=== PATIENT | male | born 1955 | race African-American/Black ===

== ENCOUNTER 2016-11-07 09:23 | Inpatient (IN) | payer OTHER ==
[2016-11-07 09:43] VITALS: BMI 24.9
--- NOTE | 2016-11-07 11:37 | HP ---
COWS - Scale Resting Pulse: 0= [place] 80 or Below Sweatin=Flushed/Facial Moisture Restless Observation: 3= Extraneous Movement Pupil Size: 2= Moderately Dilated Bone or Joint Aches: 2= Severe Diffuse Aches Runny Nose/ Eye Tearin= Runny Nose/Eyes GI Upset > 30mins: 3= Vomiting/Diarrhea Tremor Observation: 2= Slight Tremor Visible Yawning Observation: 2= >3x During Session Anxiety or Irritability: 2=Irritable/Anxious Goose Flesh Skin: 0=Smooth Skin COWS Score: 20 CIWA Score - CIWA Score Nausea/Vomitin Muscle Tremors: 3 Anxiety: 3 Agitation: 3 Paroxysmal Sweats: 2 Tacttile Disturbances: 2-Mild Itch/Numbness/Burn Auditory Disturbances: 2-Mild Harshness/Frighten Visual Disturbances: 2-Mild Sensitivity Headache: 2-Mild Admission ROS BHS - HPI Chief Complaint: I NEED HELP TO STOP USING DRUGS HEROIN,COCAINE AND ALCOHOL Allergies/Adverse Reactions: Allergies Allergy/AdvReac Type Severity Reaction Status Date / Time No Known Allergies Allergy Verified 11/07/16 10:09 History of Present Illness: THIS 61 YEARS OLD MALE WITH HEROIN,COCAINE AND ALCOHOL DEPENDENCE,WITHDRAWAL SYMPTOM,LAST DETOX 10/13 ACI NOT COMPLETED ASTHMA HEPATITIS C LOW BACK PAIN SPINAL STENOSIS LONGEST PERIOD OF SOBRIETY 17 YEARS Exam Limitations: No Limitations - Ebola screening Have you traveled outside of the country in the last 21 days: No Have you had contact with anyone from an Ebola affected area: No Have you been sick,other than usual withdrawal symptoms: No Do you have a fever: No - Review of Systems Constitutional: Chills, Diaphoresis, Loss of Appetite, Malaise, Night Sweats, Changes in sleep, Weakness EENT: reports: Tearing, Nose Congestion Respiratory: reports: No Symptoms reported Cardiac: reports: Palpitations GI: reports: Diarrhea, Nausea, Vomiting, Abdominal cramping : reports: No Symptoms Reported Musculoskeletal: reports: Back Pain, Joint Pain, Muscle Pain, Joint Stiffness Integumentary: reports: Dryness Neuro: reports: Headache, Tremors Endocrine: reports: No Symptoms Reported Hematology: reports: No Symptoms Reported Psychiatric: reports: Anxious (INSOMNIA), Depressed, other Patient History - Patient Medical History Hx Anemia: No Hx Asthma: Yes (ON ALBUTEROL INHALER) Hx Chronic Obstructive Pulmonary Disease (COPD): No Hx Cancer: No Hx Cardiac Disorders: No Hx Congestive Heart Failure: No Hx Hypertension: No Hx Hypercholesterolemia: No Hx Pacemaker: No HX Cerebrovascular Accident: No Hx Seizures: No Hx Dementia: No Hx Diabetes: No Hx Gastrointestinal Disorders: Yes (GERD) Hx Liver Disease: No Hx Genitourinary Disorders: No Hx Sexually Transmitted Disorders: No Hx Renal Disease (ESRD): No Hx Thyroid Disease: No Hx Human Immunodeficiency Virus (HIV): No (LAST 08/13 NEGATIVE) Hx Hepatitis C: No Hx Depression: Yes (ANXIETY,) Hx Suicide Attempt: No Hx Schizophrenia: No Other Medical History: INSOMNIA,LOW BACK PAIN - Patient Surgical History Past Surgical History: Yes Hx Neurologic Surgery: No Hx Cataract Extraction: No Hx Cardiac Surgery: No Hx Lung Surgery: No Hx Breast Surgery: No Hx Breast Biopsy: No Hx Abdominal Surgery: Yes Hx Appendectomy: No Hx Cholecystectomy: No Hx Genitourinary Surgery: No Hx Section: No Hx Orthopedic Surgery: No Other Surgical History: Incisional hernia repair in 2010 and chest sx in 2010 Anesthesia Reaction: No - PPD History Previous Implant?: Yes Documented Results: Negative w/proof Implanted On Prior [facility] Admission?: Yes Date: 02/09/16 Results: 0 mm PPD to be Administered?: No - Smoking Cessation Smoking history: Current every day smoker Have you smoked in the past 12 months: Yes Aproximately how many cigarettes per day: 20 Cigars Per Day: 0 Hx Chewing Tobacco Use: No Initiated information on smoking cessation: Yes 'Breaking Loose' booklet given: 11/07/16 - Substance & Tx. History Hx Alcohol Use: Yes Hx Substance Use: Yes Substance Use Type: Alcohol, Cocaine, Heroin - Substances Abused Heroin Route: Inhalation Frequency: Daily Amount used: 15 bags Age of first use: 31 Date of Last Use: 11/06/16 Alcohol Route: Oral Frequency: Daily Amount used: 3 pints wine Age of first use: 31 Date of Last Use: 11/06/16 Cocaine Route: Inhalation Frequency: Daily Amount used: 1 gram Age of first use: 31 Date of Last Use: 11/06/16 Family Disease History - Family Disease History Family History: Denies Admission Physical Exam BHS - Vital Signs Vital Signs: Vital Signs - 24 hr 11/07/16 09:39 Temperature 96.0 F L Pulse Rate 80 Respiratory 18 Rate Blood Pressure 112/73 - Physical General Appearance: Yes: Moderate Distress, Tremorous, Irritable, Sweating, Anxious HEENTM: Yes: Nasal Congestion Respiratory: Yes: Lungs Clear Neck: Yes: Within Normal Limits Breast: Yes: Within Normal Limits Cardiology: Yes: Within Normal Limits, Regular Rhythm, Regular Rate, S1, S2 Abdominal: Yes: Within Normal Limits, Normal Bowel Sounds, Non Tender, Flat, Soft, Surgical Scar Genitourinary: Yes: Within Normal Limits Back: Yes: Muscle Spasm Musculoskeletal: Yes: Back pain, Joint Stiffness, Muscle Pain Extremities: Yes: Tremors Neurological: Yes: experimental worker II-XII NML intact, Fully Oriented, Alert, Motor Strength 5/5 Integumentary: Yes: Dry Lymphatic: Yes: Within Normal Limits - Diagnostic (1) incisional hernia Current Visit: No Status: Active (2) Opioid dependence with withdrawal Current Visit: No Status: Acute (3) Asthma Current Visit: No Status: Chronic (4) Essential hypertension Current Visit: No Status: Chronic (5) Arteriosclerotic heart disease (ASHD) Current Visit: No Status: Suspected (6) Anxiety and depression Current Visit: Yes Status: Acute (7) Insomnia Current Visit: Yes Status: Acute (8) GERD (gastroesophageal reflux disease) Current Visit: Yes Status: Acute (9) Low back pain Current Visit: Yes Status: Acute Cleared for Admission [facility] - Detox or Rehab [facility] Level of Care: Medically Managed Detox Regimen/Protocol: Methadone/Librium [facility] Breath Alcohol Content Breath Alcohol Content: 0 Urine Drug Screen - Results Drug Screen Negative: No Urine Drug Screen Results: TYRON-Cocaine, OPI-Opiates, OXY-Oxycodone
[2016-11-07] MEDS ORDERED: NICOTINE POLACRILEX 2 MG GUM BUC PRN (11:50)
[2016-11-07] MEDS ORDERED: MAGNESIUM HYDROX 2400MG/30ML ORAL SUSPENSION 30 ML CUP PO PRN (11:50)
[2016-11-07] MEDS ORDERED: P-EPHED 60MG/TRIPROLIDI 2.5MG TABLET PO PRN (11:50)
[2016-11-07] MEDS ORDERED: IBUPROFEN 400 MG TABLET (FP) PO PRN (11:50)
[2016-11-07] MEDS ORDERED: guaiFENesin/D-METHORPHAN HB 10 ML UNIT-DOSE CUPS PO PRN (11:50)
[2016-11-07] MEDS ORDERED: MENTHOL/PHENOL 1 EACH UD MM PRN (11:50)
[2016-11-07] MEDS ORDERED: LOPERAMIDE HCL 2 MG CAPSULE PO PRN (11:50)
[2016-11-07] MEDS ORDERED: MAG HYDROX/AL HYDROX/SIMETH 30 ML UNIT-DOSE CUP PO PRN (11:50)
[2016-11-07] MEDS ORDERED: ACETAMINOPHEN 325 MG TABLET (FP) PO PRN (11:50)
[2016-11-07] MEDS ORDERED: hydrOXYzine PAMOATE 50 MG CAPSULE (FP) PO PRN (11:50)
[2016-11-07] MEDS ORDERED: MAGNESIUM CITRATE 300 ML BOTTLE PO PRN (11:50)
[2016-11-07] MEDS ORDERED: chlordiazePOXIDE HCL 25 MG CAPSULE PO PRN (11:50)
[2016-11-07] MEDS ORDERED: ALBUTEROL SO4 6.7 GM HFA INHALER IH PRN (11:56)
[2016-11-07] MEDS ORDERED: chlordiazePOXIDE HCL 25 MG CAPSULE PO ONE (12:05)
[2016-11-07] MEDS ORDERED: METHADONE HCL 10 MG TABLET (FOR DETOX USE ONLY) PO ONE ×2 (12:06→23:00)
[2016-11-07] MEDS: NICOTINE 21 MG/24 HOURS TOPICAL PATCH TD SCH (12:44)
[2016-11-07] MEDS: GABAPENTIN 300 MG CAPSULE (FP) PO SCH ×2 (13:17→22:18)
--- NOTE | 2016-11-07 16:20 | CONSULT ---
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 Substance Abuse History: - Smoking Cessation. Smoking history: Current every day smoker. Have you smoked in the past 12 months: Yes. Aproximately how many cigarettes per day: 20. Cigars Per Day: 0. Hx Chewing Tobacco Use: No. Initiated information on smoking cessation: Yes. 'Breaking Loose' booklet given : 11/07/16. - Substance & Tx. History. Hx Alcohol Use: Yes. Hx Substance Use : Yes. Substance Use Type: Alcohol, Cocaine, Heroin. - Substances Abused. Heroin. Route: Inhalation. Frequency: Daily. Amount used: 15 bags. Age of first use: 31. Date of Last Use: 11/06/16. Alcohol. Route: Oral. Frequency: Daily. Amount used: 3 pints wine. Age of first use: 31. Date of Last Use: 11/06/16. Cocaine. Route: Inhalation. Frequency: Daily. Amount used: 1 gram. Age of first use: 31. Date of Last Use: 11/06/16. Confirmed by patient. Medical History: Significant for a history of bronchial asthma,HTN,GERD,low back pain,past incisional herniorrhaphy and spinal stenosis. Psychiatric History: Reportedly dagnosed with Bipolar Disorder years.Patient denies history of psychiatric hospitalizations." I used to be on psychiatric medications.Not anymore." Mr Gay states that he stopped seing OPD care providers/taking psychotropic medications (trazodone seroquel) years ago.No history of suicide attempts. Physical/Sexual Abuse/Trauma History: Patient denies. Mental Status Exam - Mental Status Exam Alert and Oriented to: Time, Place, Person Cognitive Function: Good Patient Appearance: Well Groomed Mood: Withdrawn, Anxious Affect: Mood Congruent Patient Behavior: Fatigued, Talkative, Appropriate, Cooperative Speech Pattern: Clear Voice Loudness: Normal Thought Process: Goal Oriented Thought Disorder: Not Present Hallucinations: Denies Suicidal Ideation: Denies Homicidal Ideation: Denies Insight/Judgement: Poor Sleep: Fair Appetite: Good Muscle strength/Tone: Normal Gait/Station: Normal Psychiatric Findings - Problem List ([place] 1, 2,3) (1) Opioid dependence with withdrawal Current Visit: Yes Status: Acute (2) Nicotine dependence Current Visit: Yes Status: Acute Qualifiers: Nicotine product type: cigarettes Substance use status: uncomplicated Qualified Code(s): F17.210 - Nicotine dependence, cigarettes, uncomplicated (3) Cocaine dependence Current Visit: Yes Status: Acute (4) GERD (gastroesophageal reflux disease) Current Visit: Yes Status: Chronic (5) Low back pain Current Visit: Yes Status: Chronic (6) Asthma Current Visit: Yes Status: Chronic (7) Essential hypertension Current Visit: No Status: Chronic (8) Arteriosclerotic heart disease (ASHD) Current Visit: No Status: Suspected - Initial Treatment Plan Initial Treatment Plan: Psychoeducation.Detoxification.Observation.
[2016-11-07] MEDS: chlordiazePOXIDE HCL 25 MG CAPSULE PO SCH ×2 (17:43→22:17)
[2016-11-07 19:23] LABS: URINE APPEARANCE CLEAR; URINE BILIRUBIN NEGATIVE (NEGATIVE); URINE BLOOD TRACE-INTA (NEGATIVE); URINE COLOR LT. YELLOW; URINE GLUCOSE (UA) NEGATIVE (NEGATIVE); URINE KETONE TRACE (NEGATIVE); URINE LEUK ESTERASE NEGATIVE (NEGATIVE); URINE NITRITE NEGATIVE (NEGATIVE); URINE PROTEIN NEGATIVE (NEGATIVE); URINE UROBILINOGEN 0.2 E.U/dl E.U./dl (0.2-1.0)
[2016-11-07] MEDS: THIAMINE HCL 100 MG TABLET (FP) PO SCH (22:17)
[2016-11-07] MEDS: NAPROXEN 500 MG TABLET (FP) PO SCH (22:18)
[2016-11-08] MEDS: GABAPENTIN 300 MG CAPSULE (FP) PO SCH ×3 (05:33→22:40)
[2016-11-08] MEDS: chlordiazePOXIDE HCL 25 MG CAPSULE PO SCH ×4 (05:33→22:41)
--- NOTE | 2016-11-08 09:30 | PN ---
BHS COWS - Scale Resting Pulse: 0= [place] 80 or Below Sweatin= Chills/Flushing Restless Observation: 3= Extraneous Movement Pupil Size: 1= Pupils >than Normal Bone or Joint Aches: 2= Severe Diffuse Aches Runny Nose/ Eye Tearin= Runny Nose/Eyes GI Upset > 30mins: 3= Vomiting/Diarrhea Tremor Observation of Outstretched Hands: 2= Slight Tremor Visible Yawning Observation: 1= 1-2x During Session Anxiety or Irritability: 2=Irritable/Anxious Goose Flesh Skin: 0=Smooth Skin COWS Score: 17 S Progress Note (SOAP) Subjective: ALERT,IRRITABLE,ANXIOUS,INTERRUPTED SLEEP,PAIN IN THE BODY AND BACK,TREMOR Objective: 11/08/16 09:29 Vital Signs Temperature 97.4 F L 11/08/16 06:29 Pulse Rate 68 11/08/16 06:29 Respiratory Rate 18 11/08/16 06:29 Blood Pressure 111/74 11/08/16 06:29 O2 Sat by Pulse Oximetry (%) EKG NSR,ST IN V2 NO CHEST PAIN,NO SOB,NO DIZZINESS Assessment: 11/08/16 09:30 WITHDRAWAL SYMPTOM Plan: CONTINUE DETOX
--- NOTE | 2016-11-08 09:50 | EKG ---
Test Reason : Blood Pressure : / mmHG Vent. Rate : 062 BPM Atrial Rate : 062 BPM P-R Int : 174 ms QRS Dur : 110 ms QT Int : 434 ms P-R-T Axes : 072 -32 -15 degrees QTc Int : 440 ms NORMAL SINUS RHYTHM LEFT AXIS DEVIATION SEPTAL INFARCT , AGE UNDETERMINED ABNORMAL ECG NO PREVIOUS ECGS AVAILABLE Confirmed by MARGAUX KABA, SHARON ([id number]) on 11/08/2016 9:49:50 AM Referred By: Vasquez Kumar Confirmed By:SHARON DAMICO MD
[2016-11-08 10:00] LABS: MCH 30.5 pg (25.7-33.7); MEAN CELL VOLUME 92.4 fl (80-96); MEAN PLT VOLUME 9.6 fl (7.5-11.1); PLATELET COUNT 472 K/MM3 (134-434); RDW 13.2 % (11.9-15.9); WHITE BLOOD COUNT 6.6 K/mm3 (4.0-10.0)
[2016-11-08] MEDS ORDERED: METHADONE HCL 10 MG TABLET (FOR DETOX USE ONLY) PO SCH (10:00)
[2016-11-08 10:11] LABS: ALBUMIN 3.7 g/dl (3.4-5.0); BILIRUBIN,TOTAL 1.2 mg/dL (0.2-1.0); CALCIUM 9.1 mg/dL (8.5-10.1); CREATININE 1.5 mg/dL (0.7-1.3); TOT PROT 7.8 g/dl (6.4-8.2)
[2016-11-08] MEDS: NAPROXEN 500 MG TABLET (FP) PO SCH ×2 (10:17→22:40)
[2016-11-08] MEDS: NICOTINE 21 MG/24 HOURS TOPICAL PATCH TD SCH (10:17)
[2016-11-08] MEDS: PRENATAL VITAMINS W/ FOLIC ACID TABLET (FP) PO SCH (10:17)
[2016-11-08] MEDS: ASPIRIN 81 MG CHEWABLE TABLETS PO SCH (10:17)
[2016-11-08] MEDS: THIAMINE HCL 100 MG TABLET (FP) PO SCH (22:40)
[2016-11-09] MEDS: GABAPENTIN 300 MG CAPSULE (FP) PO SCH ×3 (05:56→22:28)
[2016-11-09] MEDS: chlordiazePOXIDE HCL 25 MG CAPSULE PO SCH ×2 (05:56→10:33)
[2016-11-09] MEDS ORDERED: CYCLOBENZAPRINE HCL 10 MG TABLET (FP) PO PRN (09:07)
--- NOTE | 2016-11-09 09:58 | PN ---
S COWS - Scale Resting Pulse: 0= [place] 80 or Below Sweatin=Flushed/Facial Moisture Restless Observation: 3= Extraneous Movement Pupil Size: 1= Pupils >than Normal Bone or Joint Aches: 2= Severe Diffuse Aches Runny Nose/ Eye Tearin= Runny Nose/Eyes GI Upset > 30mins: 2= Nausea/Diarrhea Tremor Observation of Outstretched Hands: 2= Slight Tremor Visible Yawning Observation: 1= 1-2x During Session Anxiety or Irritability: 2=Irritable/Anxious Goose Flesh Skin: 0=Smooth Skin COWS Score: 17 BHS Progress Note (SOAP) Subjective: ALERT,IRRITABLE,ANXIOUS,INTERRUPTED SLEEP,TREMOR,PAIN IN THE BODY AND BACK Objective: 11/09/16 09:56 Vital Signs Temperature 97.1 F L 11/09/16 06:41 Pulse Rate 80 11/09/16 06:41 Respiratory Rate 18 11/09/16 06:41 Blood Pressure 118/81 11/09/16 06:41 O2 Sat by Pulse Oximetry (%) Laboratory Last Values WBC 6.6 K/mm3 (4.0-10.0) 11/08/16 06:00 RBC 4.63 M/mm3 (4.00-5.60) 11/08/16 06:00 Hgb 14.1 GM/dL (11.7-16.9) 11/08/16 06:00 Hct 42.8 % (35.4-49) 11/08/16 06:00 MCV 92.4 fl (80-96) 11/08/16 06:00 MCHC 33.0 g/dl (32.0-35.9) 11/08/16 06:00 RDW 13.2 % (11.9-15.9) 11/08/16 06:00 Plt Count 472 K/MM3 (134-434) H D 11/08/16 06:00 MPV 9.6 fl (7.5-11.1) 11/08/16 06:00 Sodium 139 mmol/L (136-145) 11/08/16 06:00 Potassium 3.8 mmol/L (3.5-5.1) 11/08/16 06:00 Chloride 103 mmol/L (98-107) 11/08/16 06:00 Carbon Dioxide 31 mmol/L (21-32) 11/08/16 06:00 Anion Gap 5 (8-16) L 11/08/16 06:00 BUN 15 mg/dL (7-18) D 11/08/16 06:00 Creatinine 1.5 mg/dL (0.7-1.3) H D 11/08/16 06:00 Creat Clearance w eGFR 47.74 (>60) 11/08/16 06:00 Random Glucose 134 mg/dL (74-106) H D 11/08/16 06:00 Calcium 9.1 mg/dL (8.5-10.1) 11/08/16 06:00 Total Bilirubin 1.2 mg/dL (0.2-1.0) H D 11/08/16 06:00 AST 17 U/L (15-37) D 11/08/16 06:00 ALT 35 U/L (12-78) D 11/08/16 06:00 Alkaline Phosphatase 84 U/L (45-117) 11/08/16 06:00 Total Protein 7.8 g/dl (6.4-8.2) 11/08/16 06:00 Albumin 3.7 g/dl (3.4-5.0) 11/08/16 06:00 Urine Color Lt. yellow 11/07/16 14:00 Urine Appearance Clear 11/07/16 14:00 Urine pH 6.0 (5.0-8.0) 11/07/16 14:00 Ur Specific [place] 1.010 (1.001-1.035) 11/07/16 14:00 Urine Protein Negative (NEGATIVE) 11/07/16 14:00 Urine Glucose (UA) Negative (NEGATIVE) 11/07/16 14:00 Urine Ketones Trace (NEGATIVE) H 11/07/16 14:00 Urine Blood Trace-inta (NEGATIVE) 11/07/16 14:00 Urine Nitrite Negative (NEGATIVE) 11/07/16 14:00 Urine Bilirubin Negative (NEGATIVE) 11/07/16 14:00 Urine Urobilinogen 0.2 e.u/dl E.U./dl (0.2-1.0) 11/07/16 14:00 Ur Leukocyte Esterase Negative (NEGATIVE) 11/07/16 14:00 RPR Titer Nonreactive (NONREACTIVE) 11/08/16 06:00 Assessment: 01/12/17 09:57 WITHDRAWAL SYMPTOM Plan: CONTINUE DETOX,ENCOURAGE ORAL FLUID,REPEAT CMP IN AM,BGM MONITORING,INITIAL GLUCOE IS 134
[2016-11-09] MEDS: ASPIRIN 81 MG CHEWABLE TABLETS PO SCH (10:33)
[2016-11-09] MEDS: METHADONE HCL 5 MG TABLET (FOR DETOX USE ONLY) PO SCH (10:33)
[2016-11-09] MEDS: PRENATAL VITAMINS W/ FOLIC ACID TABLET (FP) PO SCH (10:33)
[2016-11-09] MEDS: NAPROXEN 500 MG TABLET (FP) PO SCH ×2 (10:34→22:28)
[2016-11-09] MEDS: cloNIDine HCL 0.1 MG TABLET PO SCH ×2 (10:34→22:28)
[2016-11-09] MEDS: NICOTINE 21 MG/24 HOURS TOPICAL PATCH TD SCH (10:34)
[2016-11-09] MEDS: chlordiazePOXIDE 5 MG CAPSULE PO SCH ×2 (17:20→22:28)
--- NOTE | 2016-11-09 17:39 | PN ---
BHS Progress Note Note: received nurse call acid reflux zantac 150 mg bid continue detox
[2016-11-09] MEDS ORDERED: RANITIDINE HCL 150 MG TABLET (FP) PO ONE (19:02)
[2016-11-09] MEDS ORDERED: RANITIDINE HCL 150 MG TABLET (FP) PO SCH (22:00)
[2016-11-09] MEDS: THIAMINE HCL 100 MG TABLET (FP) PO SCH (22:28)
[2016-11-09] MEDS: diphenhydrAMINE HCL 50 MG CAPSULE PO PRN (22:30)
[2016-11-10] MEDS: chlordiazePOXIDE 5 MG CAPSULE PO SCH ×2 (05:52→10:11)
[2016-11-10] MEDS: GABAPENTIN 300 MG CAPSULE (FP) PO SCH ×3 (05:53→22:23)
[2016-11-10] MEDS: cloNIDine HCL 0.1 MG TABLET PO SCH ×2 (10:11→22:23)
[2016-11-10] MEDS: RANITIDINE HCL 150 MG TABLET (FP) PO SCH ×2 (10:11→22:23)
[2016-11-10] MEDS: NICOTINE 21 MG/24 HOURS TOPICAL PATCH TD SCH (10:11)
[2016-11-10] MEDS: ASPIRIN 81 MG CHEWABLE TABLETS PO SCH (10:11)
[2016-11-10] MEDS: NAPROXEN 500 MG TABLET (FP) PO SCH ×2 (10:11→22:23)
[2016-11-10] MEDS: METHADONE HCL 5 MG TABLET (FOR DETOX USE ONLY) PO SCH (10:12)
[2016-11-10] MEDS: PRENATAL VITAMINS W/ FOLIC ACID TABLET (FP) PO SCH (10:12)
[2016-11-10 10:56] LABS: ALBUMIN 3.3 g/dl (3.4-5.0); ALK PHOS 68 U/L (45-117); ANION GAP 8 (8-16); BILIRUBIN,TOTAL 0.5 mg/dL (0.2-1.0); CALCIUM 8.4 mg/dL (8.5-10.1); CO2 27 mmol/L (21-32); CREATININE 0.9 mg/dL (0.7-1.3); GLUCOSE,RANDOM 112 mg/dL (74-106); SGOT/AST 17 U/L (15-37); SGPT/ALT 35 U/L (12-78); TOT PROT 6.3 g/dl (6.4-8.2)
--- NOTE | 2016-11-10 12:16 | PN ---
BHS Progress Note (SOAP) Subjective: SWEATING,INTERRUPTED SLEEP,RESTLESS Objective: 11/10/16 12:15 Vital Signs - 8 hr 11/10/16 11/10/16 06:27 09:35 Temperature 97.6 F 96 F L Pulse Rate 70 76 Respiratory 18 20 Rate Blood Pressure 99/66 104/73 Laboratory Tests 11/07/16 11/08/16 11/08/16 14:00 06:00 06:00 WBC 6.6 RBC 4.63 Hgb 14.1 Hct 42.8 MCV 92.4 MCHC 33.0 RDW 13.2 Plt Count 472 H D MPV 9.6 Sodium 139 Potassium 3.8 Chloride 103 Carbon Dioxide 31 Anion Gap 5 L BUN 15 D Creatinine 1.5 H D Creat Clearance w eGFR 47.74 POC Glucometer Random Glucose 134 H D Calcium 9.1 Total Bilirubin 1.2 H D AST 17 D ALT 35 D Alkaline Phosphatase 84 Total Protein 7.8 Albumin 3.7 Urine Color Lt. yellow Urine Appearance Clear Urine pH 6.0 Ur Specific [place] 1.010 Urine Protein Negative Urine Glucose (UA) Negative Urine Ketones Trace H Urine Blood Trace-inta Urine Nitrite Negative Urine Bilirubin Negative Urine Urobilinogen 0.2 e.u/dl Ur Leukocyte Esterase Negative RPR Titer 11/08/16 11/09/16 11/10/16 06:00 16:24 05:56 WBC RBC Hgb Hct MCV MCHC RDW Plt Count MPV Sodium Potassium Chloride Carbon Dioxide Anion Gap BUN Creatinine Creat Clearance w eGFR POC Glucometer 103 159 Random Glucose Calcium Total Bilirubin AST ALT Alkaline Phosphatase Total Protein Albumin Urine Color Urine Appearance Urine pH Ur Specific [place] Urine Protein Urine Glucose (UA) Urine Ketones Urine Blood Urine Nitrite Urine Bilirubin Urine Urobilinogen Ur Leukocyte Esterase RPR Titer Nonreactive 11/10/16 07:00 WBC RBC Hgb Hct MCV MCHC RDW Plt Count MPV Sodium 143 Potassium 4.2 Chloride 108 H Carbon Dioxide 27 Anion Gap 8 BUN 8 D Creatinine 0.9 D Creat Clearance w eGFR > 60 POC Glucometer Random Glucose 112 H Calcium 8.4 L Total Bilirubin 0.5 D AST 17 ALT 35 Alkaline Phosphatase 68 Total Protein 6.3 L Albumin 3.3 L Urine Color Urine Appearance Urine pH Ur Specific [place] Urine Protein Urine Glucose (UA) Urine Ketones Urine Blood Urine Nitrite Urine Bilirubin Urine Urobilinogen Ur Leukocyte Esterase RPR Titer LABS NOTED Assessment: 11/10/16 12:16 WITHDRAWAL SX. Plan: CONTINUE DETOX
[2016-11-10] MEDS: chlordiazePOXIDE HCL 10 MG CAPSULE PO SCH ×2 (17:20→22:23)
[2016-11-10] MEDS: THIAMINE HCL 100 MG TABLET (FP) PO SCH (22:23)
[2016-11-10] MEDS: diphenhydrAMINE HCL 50 MG CAPSULE PO PRN (22:24)
[2016-11-11] MEDS: chlordiazePOXIDE HCL 10 MG CAPSULE PO SCH ×2 (05:35→10:04)
[2016-11-11] MEDS: GABAPENTIN 300 MG CAPSULE (FP) PO SCH ×3 (06:26→22:03)
[2016-11-11] MEDS ORDERED: METHADONE HCL 10 MG TABLET (FOR DETOX USE ONLY) PO SCH (10:00)
[2016-11-11] MEDS: PRENATAL VITAMINS W/ FOLIC ACID TABLET (FP) PO SCH (10:04)
[2016-11-11] MEDS: NAPROXEN 500 MG TABLET (FP) PO SCH ×2 (10:04→22:03)
[2016-11-11] MEDS: cloNIDine HCL 0.1 MG TABLET PO SCH ×2 (10:04→22:03)
[2016-11-11] MEDS: ASPIRIN 81 MG CHEWABLE TABLETS PO SCH (10:04)
[2016-11-11] MEDS: RANITIDINE HCL 150 MG TABLET (FP) PO SCH ×2 (10:04→22:04)
[2016-11-11] MEDS: NICOTINE 21 MG/24 HOURS TOPICAL PATCH TD SCH (10:04)
--- NOTE | 2016-11-11 10:20 | PN ---
BHS Progress Note (SOAP) Subjective: poor sleep restless, anxious, shaky Objective: 11/11/16 10:19 Vital Signs - 24 hr 11/10/16 11/10/16 11/10/16 13:10 17:30 22:05 Temperature 95.9 F L 97.2 F L 98.3 F Pulse Rate 74 65 68 Respiratory 18 16 19 Rate Blood Pressure 102/65 99/58 94/65 11/11/16 11/11/16 06:27 09:23 Temperature 98.1 F Pulse Rate 65 71 Respiratory 18 18 Rate Blood Pressure 103/66 96/66 Laboratory Tests 11/07/16 11/08/16 11/08/16 14:00 06:00 06:00 WBC 6.6 RBC 4.63 Hgb 14.1 Hct 42.8 MCV 92.4 MCHC 33.0 RDW 13.2 Plt Count 472 H D MPV 9.6 Sodium 139 Potassium 3.8 Chloride 103 Carbon Dioxide 31 Anion Gap 5 L BUN 15 D Creatinine 1.5 H D Creat Clearance w eGFR 47.74 POC Glucometer Random Glucose 134 H D Calcium 9.1 Total Bilirubin 1.2 H D AST 17 D ALT 35 D Alkaline Phosphatase 84 Total Protein 7.8 Albumin 3.7 Urine Color Lt. yellow Urine Appearance Clear Urine pH 6.0 Ur Specific [place] 1.010 Urine Protein Negative Urine Glucose (UA) Negative Urine Ketones Trace H Urine Blood Trace-inta Urine Nitrite Negative Urine Bilirubin Negative Urine Urobilinogen 0.2 e.u/dl Ur Leukocyte Esterase Negative RPR Titer 11/08/16 11/09/16 11/10/16 06:00 16:24 05:56 WBC RBC Hgb Hct MCV MCHC RDW Plt Count MPV Sodium Potassium Chloride Carbon Dioxide Anion Gap BUN Creatinine Creat Clearance w eGFR POC Glucometer 103 159 Random Glucose Calcium Total Bilirubin AST ALT Alkaline Phosphatase Total Protein Albumin Urine Color Urine Appearance Urine pH Ur Specific [place] Urine Protein Urine Glucose (UA) Urine Ketones Urine Blood Urine Nitrite Urine Bilirubin Urine Urobilinogen Ur Leukocyte Esterase RPR Titer Nonreactive 11/10/16 11/10/16 11/11/16 07:00 16:21 05:35 WBC RBC Hgb Hct MCV MCHC RDW Plt Count MPV Sodium 143 Potassium 4.2 Chloride 108 H Carbon Dioxide 27 Anion Gap 8 BUN 8 D Creatinine 0.9 D Creat Clearance w eGFR > 60 POC Glucometer 109 101 Random Glucose 112 H Calcium 8.4 L Total Bilirubin 0.5 D AST 17 ALT 35 Alkaline Phosphatase 68 Total Protein 6.3 L Albumin 3.3 L Urine Color Urine Appearance Urine pH Ur Specific [place] Urine Protein Urine Glucose (UA) Urine Ketones Urine Blood Urine Nitrite Urine Bilirubin Urine Urobilinogen Ur Leukocyte Esterase RPR Titer Assessment: 11/11/16 10:19 ongoing withdrawal Plan: continue detox protocol with observation and dc in am
[2016-11-11] MEDS: THIAMINE HCL 100 MG TABLET (FP) PO SCH (22:03)
[2016-11-11] MEDS: diphenhydrAMINE HCL 50 MG CAPSULE PO PRN (22:04)
[2016-11-12] MEDS: GABAPENTIN 300 MG CAPSULE (FP) PO SCH (05:28)
[2016-11-12] MEDS ORDERED: METHADONE HCL 5 MG TABLET (FOR DETOX USE ONLY) PO SCH (06:00)
[2016-11-12 09:37] VITALS: BP 106/74; PULSE 83; TEMP 98.3
[2016-11-12] MEDS: PRENATAL VITAMINS W/ FOLIC ACID TABLET (FP) PO SCH (09:40)
[2016-11-12] MEDS: cloNIDine HCL 0.1 MG TABLET PO SCH (09:41)
[2016-11-12] MEDS: ASPIRIN 81 MG CHEWABLE TABLETS PO SCH (09:41)
[2016-11-12] MEDS: RANITIDINE HCL 150 MG TABLET (FP) PO SCH (09:41)
[2016-11-12] MEDS: NAPROXEN 500 MG TABLET (FP) PO SCH (09:41)
[2016-11-12] MEDS: NICOTINE 21 MG/24 HOURS TOPICAL PATCH TD SCH (09:42)
--- NOTE | 2016-11-12 12:08 | DS ---
[facility] Detox Discharge Summary Admission Date: 11/07/16 Discharge Date: 11/12/16 - History Present History: Alcohol Dependence, Cocaine Dependence, Opioid Dependence Pertinent Past History: Asthma GERD - Physical Exam Results Vital Signs: Vital Signs Temperature 98.3 F 11/12/16 09:36 Pulse Rate 83 11/12/16 09:36 Respiratory Rate 18 11/12/16 09:36 Blood Pressure 106/74 11/12/16 09:36 O2 Sat by Pulse Oximetry (%) Pertinent Admission Physical Exam Findings: Withdrawal symptoms Laboratory Tests 11/07/16 11/08/16 11/08/16 14:00 06:00 06:00 WBC 6.6 RBC 4.63 Hgb 14.1 Hct 42.8 MCV 92.4 MCHC 33.0 RDW 13.2 Plt Count 472 H D MPV 9.6 Sodium 139 Potassium 3.8 Chloride 103 Carbon Dioxide 31 Anion Gap 5 L BUN 15 D Creatinine 1.5 H D Creat Clearance w eGFR 47.74 POC Glucometer Random Glucose 134 H D Calcium 9.1 Total Bilirubin 1.2 H D AST 17 D ALT 35 D Alkaline Phosphatase 84 Total Protein 7.8 Albumin 3.7 Urine Color Lt. yellow Urine Appearance Clear Urine pH 6.0 Ur Specific [place] 1.010 Urine Protein Negative Urine Glucose (UA) Negative Urine Ketones Trace H Urine Blood Trace-inta Urine Nitrite Negative Urine Bilirubin Negative Urine Urobilinogen 0.2 e.u/dl Ur Leukocyte Esterase Negative RPR Titer 11/08/16 11/09/16 11/10/16 06:00 16:24 05:56 WBC RBC Hgb Hct MCV MCHC RDW Plt Count MPV Sodium Potassium Chloride Carbon Dioxide Anion Gap BUN Creatinine Creat Clearance w eGFR POC Glucometer 103 159 Random Glucose Calcium Total Bilirubin AST ALT Alkaline Phosphatase Total Protein Albumin Urine Color Urine Appearance Urine pH Ur Specific [place] Urine Protein Urine Glucose (UA) Urine Ketones Urine Blood Urine Nitrite Urine Bilirubin Urine Urobilinogen Ur Leukocyte Esterase RPR Titer Nonreactive 11/10/16 11/10/16 11/11/16 07:00 16:21 05:35 WBC RBC Hgb Hct MCV MCHC RDW Plt Count MPV Sodium 143 Potassium 4.2 Chloride 108 H Carbon Dioxide 27 Anion Gap 8 BUN 8 D Creatinine 0.9 D Creat Clearance w eGFR > 60 POC Glucometer 109 101 Random Glucose 112 H Calcium 8.4 L Total Bilirubin 0.5 D AST 17 ALT 35 Alkaline Phosphatase 68 Total Protein 6.3 L Albumin 3.3 L Urine Color Urine Appearance Urine pH Ur Specific [place] Urine Protein Urine Glucose (UA) Urine Ketones Urine Blood Urine Nitrite Urine Bilirubin Urine Urobilinogen Ur Leukocyte Esterase RPR Titer 11/11/16 11/12/16 16:15 05:27 WBC RBC Hgb Hct MCV MCHC RDW Plt Count MPV Sodium Potassium Chloride Carbon Dioxide Anion Gap BUN Creatinine Creat Clearance w eGFR POC Glucometer 114 98 Random Glucose Calcium Total Bilirubin AST ALT Alkaline Phosphatase Total Protein Albumin Urine Color Urine Appearance Urine pH Ur Specific [place] Urine Protein Urine Glucose (UA) Urine Ketones Urine Blood Urine Nitrite Urine Bilirubin Urine Urobilinogen Ur Leukocyte Esterase RPR Titer Labs noted - Treatment Hospital Course: Detox Protocol Followed, Detoxed Safely, Responded well, Discharged Condition Good - Medication Discharge Medications: Ambulatory Orders Albuterol Sulfate Inhaler - [Ventolin HFA Inhaler -] 2 inh IH Q4H PRN #0 inh 12/10 Aspirin [ASA -] 81 mg PO DAILY 11/07/16 Gabapentin [Neurontin -] 300 mg PO Q8H 11/07/16 Naproxen [Naprosyn -] 500 mg PO BID 11/07/16 - Diagnosis (1) Opioid dependence with withdrawal Status: Acute (2) Asthma Status: Chronic (3) GERD (gastroesophageal reflux disease) Status: Chronic (4) Alcohol dependence with withdrawal, unspecified Status: Acute - AMA Did Patient Leave Against Medical Advice: No
== END 2016-11-12 10:00 | disposition home or self-care (01) | DRG 773 ==
LOC: YASAS 09:23 → Y3N 11:13
PROVIDERS: ADMIT Internal Medicine; ATTEND Internal Medicine
PROC: HZ2ZZZZ Detoxification Services for Substance Abuse Treatment (ICD-10-PCS; principal; 2016-11-07)
DX: F11.23 Opioid dependence with withdrawal (principal); F10.230 Alcohol dependence with withdrawal, uncomplicated; F14.20 Cocaine dependence, uncomplicated; F17.210 Nicotine dependence, cigarettes, uncomplicated; F41.8 Other specified anxiety disorders; J45.909 Unspecified asthma, uncomplicated; K21.9 Gastro-esophageal reflux disease without esophagitis; M54.5 Low back pain; I10 Essential (primary) hypertension; I25.10 Atherosclerotic heart disease of native coronary artery without angina pectoris; M48.00 Spinal stenosis, site unspecified; G47.00 Insomnia, unspecified
CPT/HCPCS: 36415; 80053; 81003; 85027; 86593; 93005; 93010

== ENCOUNTER 2017-01-10 11:50 | Inpatient (IN) | payer OTHER ==
[2017-01-10 13:32] VITALS: BMI 25.8
--- NOTE | 2017-01-10 15:17 | HP ---
COWS - Scale Resting Pulse: 0= [place] 80 or Below Sweatin=Flushed/Facial Moisture Restless Observation: 1= Difficult to Sit Still Pupil Size: 0= Normal to Room Light Bone or Joint Aches: 2= Severe Diffuse Aches Runny Nose/ Eye Tearin= Runny Nose/Eyes GI Upset > 30mins: 2= Nausea/Diarrhea Tremor Observation: 2= Slight Tremor Visible Yawning Observation: 2= >3x During Session Anxiety or Irritability: 2=Irritable/Anxious Goose Flesh Skin: 3=Piloerection COWS Score: 18 CIWA Score - CIWA Score Nausea/Vomitin-Mild Nausea/No Vomiting Muscle Tremors: 3 Anxiety: 4-Mod. Anxious/Guarded Agitation: 4-Moderately Restless Paroxysmal Sweats: 3 Orientation: 0-Oriented Tacttile Disturbances: 0-None Auditory Disturbances: 0-None Visual Disturbances: 0-None Headache: 1-Very Mild CIWA-Ar Total Score: 16 Admission ROS BHS - HPI Chief Complaint: I need to stop. Allergies/Adverse Reactions: Allergies Allergy/AdvReac Type Severity Reaction Status Date / Time DUCK SAUCE Allergy Severe Hives Uncoded 01/10/17 15:02 NKDA Allergy Uncoded 01/10/17 15:02 History of Present Illness: pt is a 61yr old male with a history of alcohol and opioid dependence seeking detox for treatment. Exam Limitations: No Limitations - Ebola screening Have you traveled outside of the country in the last 21 days: No Have you had contact with anyone from an Ebola affected area: No Have you been sick,other than usual withdrawal symptoms: No Do you have a fever: No - Review of Systems Constitutional: Chills, Diaphoresis, Loss of Appetite, Night Sweats, Changes in sleep, Unintentional Wgt. Loss EENT: reports: Tearing, Nose Congestion Respiratory: reports: Cough Cardiac: reports: No Symptoms Reported GI: reports: Constipated, Diarrhea, Nausea, Poor Appetite, Poor Fluid Intake, Vomiting : reports: No Symptoms Reported Musculoskeletal: reports: Back Pain, Joint Pain, Joint Swelling, Muscle Pain Integumentary: reports: Flushing, Sweating Neuro: reports: Headache, Tingling, Tremors Endocrine: reports: Excessive Sweating, Flushing, Intolerance to Cold, Intolerance to Heat Hematology: reports: No Symptoms Reported Psychiatric: reports: Judgement Intact, Mood/Affect Appropiate, Orientated x3, Agitated, Anxious Other Systems: Reviewed and Negative Patient History - Patient Medical History Hx Anemia: No Hx Asthma: Yes (ON ALBUTEROL INHALER) Hx Chronic Obstructive Pulmonary Disease (COPD): No Hx Cancer: No Hx Cardiac Disorders: No Hx Congestive Heart Failure: No Hx Hypertension: No Hx Hypercholesterolemia: No Hx Pacemaker: No HX Cerebrovascular Accident: No Hx Seizures: No Hx Dementia: No Hx Diabetes: No Hx Gastrointestinal Disorders: Yes (GERD) Hx Liver Disease: No Hx Genitourinary Disorders: No Hx Sexually Transmitted Disorders: No Hx Renal Disease (ESRD): No Hx Thyroid Disease: No Hx Human Immunodeficiency Virus (HIV): No (LAST 08/13 NEGATIVE) Hx Hepatitis C: No Hx Depression: Yes (ANXIETY,) Hx Suicide Attempt: No Hx Bipolar Disorder: No Hx Schizophrenia: No - Patient Surgical History Past Surgical History: Yes Hx Neurologic Surgery: No Hx Cataract Extraction: No Hx Cardiac Surgery: No Hx Lung Surgery: No Hx Breast Surgery: No Hx Breast Biopsy: No Hx Abdominal Surgery: Yes Hx Appendectomy: No Hx Cholecystectomy: No Hx Genitourinary Surgery: No Hx Section: No Hx Orthopedic Surgery: No Other Surgical History: Incisional hernia repair in 2010 and chest sx in 2010 Anesthesia Reaction: No - PPD History Previous Implant?: No Documented Results: Negative w/proof Date: 02/09/16 Results: 0 mm PPD to be Administered?: No - Reproductive History Patient is a Female of Child Bearing Age (11 -55 yrs old): No - Smoking Cessation Smoking history: Current every day smoker Have you smoked in the past 12 months: Yes Aproximately how many cigarettes per day: 20 Cigars Per Day: 0 Hx Chewing Tobacco Use: No Initiated information on smoking cessation: Yes 'Breaking Loose' booklet given: 01/10/17 - Substance & Tx. History Hx Alcohol Use: Yes Hx Substance Use: Yes Substance Use Type: Alcohol, Heroin Hx Substance Use Treatment: No - Substances Abused Alcohol-beer/wine Route: Oral Frequency: Daily Amount used: 3-6 pks./3 pts. Age of first use: 34 Date of Last Use: 01/08/17 Heroin Route: Inhalation Frequency: Daily Amount used: 12 bags Age of first use: 31 Date of Last Use: 01/09/17 Family Disease History - Family Disease History Family History: Denies Admission Physical Exam [facility] - Vital Signs Vital Signs: Vital Signs - 24 hr 01/10/17 13:29 Temperature 96.8 F L Pulse Rate 58 L Respiratory 18 Rate Blood Pressure 145/84 - Physical General Appearance: Yes: Appropriately Dressed, Moderate Distress, Tremorous, Irritable, Sweating, Anxious HEENTM: Yes: Normal Voice, Nasal Congestion, Rhinorrhea Respiratory: Yes: Lungs Clear, Normal Breath Sounds, No Respiratory Distress Neck: Yes: No masses,lesions,Nodules Breast: Yes: Within Normal Limits Cardiology: Yes: Regular Rhythm, Regular Rate, S1, S2 Abdominal: Yes: Normal Bowel Sounds, Non Tender Genitourinary: Yes: Within Normal Limits Back: Yes: Normal Inspection Musculoskeletal: Yes: full range of Motion Extremities: Yes: Normal Capillary Refill, Normal Inspection, Tremors Neurological: Yes: Fully Oriented, Alert, Normal Response Integumentary: Yes: Diaphoresis Lymphatic: Yes: Within Normal Limits - Diagnostic (1) Alcohol dependence with withdrawal, unspecified Current Visit: Yes Status: Chronic Qualifiers: Complication of substance-induced condition: uncomplicated Qualified Code(s): F10.230 - Alcohol dependence with withdrawal, uncomplicated (2) Arteriosclerotic heart disease (ASHD) Current Visit: Yes Status: Chronic (3) Asthma Current Visit: Yes Status: Chronic (4) Cocaine dependence Current Visit: Yes Status: Chronic Qualifiers: Substance use status: uncomplicated Qualified Code(s): F14.20 - Cocaine dependence, uncomplicated (5) Essential hypertension Current Visit: Yes Status: Chronic (6) GERD (gastroesophageal reflux disease) Current Visit: Yes Status: Chronic Qualifiers: Esophagitis presence: without esophagitis Qualified Code(s): K21.9 - Gastro-esophageal reflux disease without esophagitis (7) Low back pain Current Visit: Yes Status: Chronic Qualifiers: Chronicity: chronic Back pain laterality: unspecified (8) Nicotine dependence Current Visit: Yes Status: Chronic Qualifiers: Nicotine product type: cigarettes Substance use status: uncomplicated Qualified Code(s): F17.210 - Nicotine dependence, cigarettes, uncomplicated (9) Opioid dependence with withdrawal Current Visit: Yes Status: Chronic Cleared for Admission [facility] - Detox or Rehab [facility] Level of Care: Medically Managed Detox Regimen/Protocol: Methadone/Librium [facility] Breath Alcohol Content Breath Alcohol Content: 0 Urine Drug Screen - Results Drug Screen Negative: No Urine Drug Screen Results: TYRON-Cocaine, OPI-Opiates, PCP-Phencyclidine
[2017-01-10] MEDS ORDERED: IBUPROFEN 400 MG TABLET (FP) PO PRN (15:27)
[2017-01-10] MEDS ORDERED: ACETAMINOPHEN 325 MG TABLET (FP) PO PRN (15:27)
[2017-01-10] MEDS ORDERED: MAGNESIUM HYDROX 2400MG/30ML ORAL SUSPENSION 30 ML CUP PO PRN (15:27)
[2017-01-10] MEDS ORDERED: P-EPHED 60MG/TRIPROLIDI 2.5MG TABLET PO PRN (15:27)
[2017-01-10] MEDS ORDERED: LOPERAMIDE HCL 2 MG CAPSULE PO PRN (15:27)
[2017-01-10] MEDS ORDERED: guaiFENesin/D-METHORPHAN HB 10 ML UNIT-DOSE CUPS PO PRN (15:27)
[2017-01-10] MEDS ORDERED: MAGNESIUM CITRATE 300 ML BOTTLE PO PRN (15:27)
[2017-01-10] MEDS ORDERED: MENTHOL/PHENOL 1 EACH UD MM PRN (15:27)
[2017-01-10] MEDS ORDERED: MAG HYDROX/AL HYDROX/SIMETH 30 ML UNIT-DOSE CUP PO PRN (15:27)
[2017-01-10] MEDS ORDERED: NICOTINE POLACRILEX 4 MG GUM BC PRN (15:27)
[2017-01-10] MEDS ORDERED: ALBUTEROL SO4 6.7 GM HFA INHALER IH PRN (15:29)
[2017-01-10] MEDS ORDERED: METHADONE HCL 10 MG TABLET (FOR DETOX USE ONLY) PO ONE ×2 (16:45→23:00)
[2017-01-10] MEDS ORDERED: chlordiazePOXIDE HCL 25 MG CAPSULE PO ONE (16:45)
[2017-01-10] MEDS: chlordiazePOXIDE HCL 25 MG CAPSULE PO SCH ×2 (17:41→22:11)
--- NOTE | 2017-01-10 17:47 | CONSULT ---
[facility] Psychiatric Consult - Data Date of interview: 01/10/17 Admission source: [facility] Identifying data: Another admission to [facility] for this 61 y/o AA male seeking detox treatment on for heroin and alcohol dependence.Patient is ,a father of two (survivors of a fratry of five),homeless,unemployed and supported on SSI benefits. Substance Abuse History: - Smoking Cessation. Smoking history: Current every day smoker. Have you smoked in the past 12 months: Yes. Aproximately how many cigarettes per day: 20. Cigars Per Day: 0. Hx Chewing Tobacco Use: No. Initiated information on smoking cessation: Yes. 'Breaking Loose' booklet given : 01/10/17. - Substance & Tx. History. Hx Alcohol Use: Yes. Hx Substance Use : Yes. Substance Use Type: Alcohol, Heroin. Hx Substance Use Treatment: No. - Substances Abused. Alcohol-beer/wine. Route: Oral. Frequency: Daily. Amount used: 3-6 pks./3 pts. Age of first use: 34. Date of Last Use: . Heroin. Route: Inhalation. Frequency: Daily. Amount used: 12 bags. Age of first use: 31. Date of Last Use: 01/09/17. Confirmed by the patient. Medical History: Significant for a history of bronchial asthma,HTN,GERD,low back pain,past incisional herniorrhaphy and spinal stenosis. Psychiatric History: Diagnosed with Bipolar Disorder.Patient denies history of psychiatric hospitalizations.No OPD care.Mr Gay indicates his intention to accept a low dose of seroquel to address insomnia (50-100 mg at bedtime).No history of suicide attempts. Physical/Sexual Abuse/Trauma History: Patient denies. Additional Comment: Urine Drug Screen Results: TYRON-Cocaine, OPI-Opiates, PCP- Phencyclidine.Noted. Mental Status Exam - Mental Status Exam Alert and Oriented to: Time, Place, Person Cognitive Function: Good Patient Appearance: Well Groomed Mood: Hopeful, Euthymic Affect: Normal Range Patient Behavior: Fatigued, Appropriate, Cooperative Speech Pattern: Clear Voice Loudness: Normal Thought Process: Goal Oriented Thought Disorder: Not Present Hallucinations: Denies Suicidal Ideation: Denies Homicidal Ideation: Denies Insight/Judgement: Poor Sleep: Poorly, Difficulty falling asleep Appetite: Good Muscle strength/Tone: Normal Gait/Station: Normal Psychiatric Findings - Problem List ([place] 1, 2,3) (1) Alcohol dependence with withdrawal, unspecified Current Visit: Yes Status: Acute Qualifiers: Complication of substance-induced condition: uncomplicated Qualified Code(s): F10.230 - Alcohol dependence with withdrawal, uncomplicated (2) Opioid dependence with withdrawal Current Visit: Yes Status: Acute (3) Nicotine dependence Current Visit: Yes Status: Acute Qualifiers: Nicotine product type: cigarettes Substance use status: uncomplicated Qualified Code(s): F17.210 - Nicotine dependence, cigarettes, uncomplicated (4) PCP (phencyclidine) abuse Current Visit: Yes Status: Acute (5) Substance induced mood disorder Current Visit: Yes Status: Acute (6) Arteriosclerotic heart disease (ASHD) Current Visit: Yes Status: Chronic (7) Asthma Current Visit: Yes Status: Chronic (8) Essential hypertension Current Visit: Yes Status: Chronic (9) GERD (gastroesophageal reflux disease) Current Visit: Yes Status: Chronic Qualifiers: Esophagitis presence: without esophagitis Qualified Code(s): K21.9 - Gastro-esophageal reflux disease without esophagitis (10) Low back pain Current Visit: Yes Status: Chronic Qualifiers: Chronicity: chronic Back pain laterality: unspecified - Initial Treatment Plan Initial Treatment Plan: Psychoeducation.Detoxification.Seroquel 50 mg po hs.Side effects/benefits discussed with patient.Agreement (verbal) given.Observation.
[2017-01-10 18:40] LABS: URINE APPEARANCE CLEAR; URINE BILIRUBIN NEGATIVE (NEGATIVE); URINE BLOOD NEGATIVE (NEGATIVE); URINE COLOR LTYELLOW; URINE GLUCOSE (UA) NEGATIVE (NEGATIVE); URINE KETONE NEGATIVE (NEGATIVE); URINE LEUK ESTERASE NEGATIVE (NEGATIVE); URINE NITRITE NEGATIVE (NEGATIVE); URINE PROTEIN NEGATIVE (NEGATIVE); URINE UROBILINOGEN NEGATIVE E.U./dl (0.2-1.0)
[2017-01-10] MEDS ORDERED: QUEtiapine FUMARATE 100 MG TABLET (FP) PO SCH (22:00)
[2017-01-10] MEDS: NAPROXEN 500 MG TABLET (FP) PO SCH (22:11)
[2017-01-10] MEDS: THIAMINE HCL 100 MG TABLET (FP) PO SCH (22:12)
[2017-01-10] MEDS: QUEtiapine FUMARATE 50 MG TABLET PO SCH (22:12)
[2017-01-11] MEDS: chlordiazePOXIDE HCL 25 MG CAPSULE PO SCH ×4 (05:18→22:20)
[2017-01-11 09:54] LABS: MCH 30.4 pg (25.7-33.7); MCHC 32.3 g/dl (32.0-35.9); MEAN PLT VOLUME 10.1 fl (7.5-11.1); PLATELET COUNT 292 K/MM3 (134-434); RDW 14.6 % (11.9-15.9)
[2017-01-11] MEDS ORDERED: METHADONE HCL 10 MG TABLET (FOR DETOX USE ONLY) PO SCH (10:00)
[2017-01-11 10:12] LABS: ALBUMIN 3.8 g/dl (3.4-5.0); ALK PHOS 72 U/L (45-117); ANION GAP 7 (8-16); BILIRUBIN,TOTAL 0.7 mg/dL (0.2-1.0); CALCIUM 9.1 mg/dL (8.5-10.1); CO2 31 mmol/L (21-32); CREATININE 1.1 mg/dL (0.7-1.3); GLUCOSE,RANDOM 98 mg/dL (74-106); SGOT/AST 11 U/L (15-37); SGPT/ALT 18 U/L (12-78); TOT PROT 7.3 g/dl (6.4-8.2)
[2017-01-11] MEDS: NICOTINE 21 MG/24 HOURS TOPICAL PATCH TD SCH (10:30)
[2017-01-11] MEDS: NAPROXEN 500 MG TABLET (FP) PO SCH ×2 (10:30→22:20)
[2017-01-11] MEDS: PRENATAL VITAMINS W/ FOLIC ACID TABLET (FP) PO SCH (10:30)
[2017-01-11] MEDS ORDERED: LIDOCAINE 5% TOPICAL PATCH TP ONE (11:26)
--- NOTE | 2017-01-11 11:26 | PN ---
[facility] CIWA - CIWA Score Nausea/Vomitin Muscle Tremors: 2 Anxiety: 3 Agitation: 2 Paroxysmal Sweats: 3 Orientation: 0-Oriented Tacttile Disturbances: 2-Mild Itch/Numbness/Burn Auditory Disturbances: 0-None Visual Disturbances: 0-None Headache: 0-None Present CIWA-Ar Total Score: 14 S COWS - Scale Resting Pulse: 0= [place] 80 or Below Sweatin=Flushed/Facial Moisture Restless Observation: 1= Difficult to Sit Still Pupil Size: 1= Pupils >than Normal Bone or Joint Aches: 2= Severe Diffuse Aches Runny Nose/ Eye Tearin= Nasal Congestion GI Upset > 30mins: 1= Stomach Cramp Tremor Observation of Outstretched Hands: 1= Tremor [place], Not Seen Yawning Observation: 0= None Anxiety or Irritability: 1=Feels Anxious/Irritable Goose Flesh Skin: 0=Smooth Skin COWS Score: 10 S Progress Note (SOAP) Subjective: interrupted sleep, sweats, lbp Objective: 01/11/17 11:24 Vital Signs Temperature 98.2 F 01/11/17 10:13 Pulse Rate 71 01/11/17 10:13 Respiratory Rate 18 01/11/17 10:13 Blood Pressure 130/72 01/11/17 10:13 O2 Sat by Pulse Oximetry (%) Laboratory Tests 01/10/17 01/11/17 01/11/17 17:45 06:00 06:00 WBC 6.0 RBC 4.75 Hgb 14.4 Hct 44.6 MCV 94.0 MCHC 32.3 RDW 14.6 D Plt Count 292 D MPV 10.1 Sodium 142 Potassium 3.8 Chloride 104 Carbon Dioxide 31 Anion Gap 7 L BUN 7 Creatinine 1.1 D Creat Clearance w eGFR > 60 Random Glucose 98 Calcium 9.1 Total Bilirubin 0.7 D AST 11 L D ALT 18 D Alkaline Phosphatase 72 Total Protein 7.3 Albumin 3.8 Urine Color Ltyellow Urine Appearance Clear Urine pH 5.0 Ur Specific [place] 1.016 Urine Protein Negative Urine Glucose (UA) Negative Urine Ketones Negative Urine Blood Negative Urine Nitrite Negative Urine Bilirubin Negative Urine Urobilinogen Negative Ur Leukocyte Esterase Negative pt aox3 in nad , lying in bed Assessment: 01/11/17 11:25 withdrawal sx;s Plan: cont. detox increase fluids lidocaine patch
[2017-01-11] MEDS: chlordiazePOXIDE HCL 25 MG CAPSULE PO PRN (14:50)
--- NOTE | 2017-01-11 15:27 | EKG ---
Test Reason : Blood Pressure : / mmHG Vent. 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
--- NOTE | 2017-01-11 15:28 | EKG ---
Test Reason : Blood Pressure : / mmHG Vent. Rate : 059 BPM Atrial Rate : 059 BPM P-R Int : 162 ms QRS Dur : 116 ms QT Int : 466 ms P-R-T Axes : 074 -43 -57 degrees QTc Int : 461 ms SINUS BRADYCARDIA LEFT AXIS DEVIATION SEPTAL INFARCT (CITED ON OR BEFORE 07-NOV-2016) T WAVE ABNORMALITY, CONSIDER INFERIOR ISCHEMIA ABNORMAL ECG WHEN COMPARED WITH ECG OF 07-NOV-2016 12:50, T WAVE INVERSION MORE EVIDENT IN INFERIOR LEADS Confirmed by SRAVANI GUTIÉRREZ MD ([id number]) on 01/11/2017 3:28:36 PM Referred By: Confirmed By:SRAVANI GUTIÉRREZ MD
[2017-01-11] MEDS: THIAMINE HCL 100 MG TABLET (FP) PO SCH (22:20)
[2017-01-11] MEDS: QUEtiapine FUMARATE 50 MG TABLET PO SCH (22:20)
[2017-01-12] MEDS: chlordiazePOXIDE HCL 25 MG CAPSULE PO SCH ×2 (06:01→10:35)
--- NOTE | 2017-01-12 10:19 | PN ---
[facility] CIWA - CIWA Score Nausea/Vomitin-No Nausea/No Vomiting Muscle Tremors: 3 Anxiety: 3 Agitation: 4-Moderately Restless Paroxysmal Sweats: 3 Orientation: 0-Oriented Tacttile Disturbances: 0-None Auditory Disturbances: 0-None Visual Disturbances: 0-None Headache: 0-None Present CIWA-Ar Total Score: 13 BHS COWS - Scale Resting Pulse: 0= [place] 80 or Below Sweatin=Flushed/Facial Moisture Restless Observation: 1= Difficult to Sit Still Pupil Size: 0= Normal to Room Light Bone or Joint Aches: 2= Severe Diffuse Aches Runny Nose/ Eye Tearin= Nasal Congestion GI Upset > 30mins: 0= None Tremor Observation of Outstretched Hands: 1= Tremor [place], Not Seen Yawning Observation: 0= None Anxiety or Irritability: 2=Irritable/Anxious Goose Flesh Skin: 0=Smooth Skin COWS Score: 9 BHS Progress Note (SOAP) Subjective: sweats shakes interrupted sleep irritable Objective: 01/12/17 10:17 Vital Signs Temperature 98.2 F 01/12/17 06:00 Pulse Rate 64 01/12/17 06:00 Respiratory Rate 18 01/12/17 06:00 Blood Pressure 128/76 01/12/17 06:00 O2 Sat by Pulse Oximetry (%) Laboratory Tests 01/10/17 01/10/17 01/11/17 06:00 17:45 06:00 WBC 6.0 RBC 4.75 Hgb 14.4 Hct 44.6 MCV 94.0 MCHC 32.3 RDW 14.6 D Plt Count 292 D MPV 10.1 Sodium Potassium Chloride Carbon Dioxide Anion Gap BUN Creatinine Creat Clearance w eGFR Random Glucose Calcium Total Bilirubin AST ALT Alkaline Phosphatase Total Protein Albumin Urine Color Ltyellow Urine Appearance Clear Urine pH 5.0 Ur Specific [place] 1.016 Urine Protein Negative Urine Glucose (UA) Negative Urine Ketones Negative Urine Blood Negative Urine Nitrite Negative Urine Bilirubin Negative Urine Urobilinogen Negative Ur Leukocyte Esterase Negative RPR Titer Hepatitis C Antibody 3.5 H 01/11/17 01/11/17 06:00 06:00 WBC RBC Hgb Hct MCV MCHC RDW Plt Count MPV Sodium 142 Potassium 3.8 Chloride 104 Carbon Dioxide 31 Anion Gap 7 L BUN 7 Creatinine 1.1 D Creat Clearance w eGFR > 60 Random Glucose 98 Calcium 9.1 Total Bilirubin 0.7 D AST 11 L D ALT 18 D Alkaline Phosphatase 72 Total Protein 7.3 Albumin 3.8 Urine Color Urine Appearance Urine pH Ur Specific [place] Urine Protein Urine Glucose (UA) Urine Ketones Urine Blood Urine Nitrite Urine Bilirubin Urine Urobilinogen Ur Leukocyte Esterase RPR Titer Nonreactive Hepatitis C Antibody awake/alert ambulating no acute distress Assessment: 01/12/17 10:19 withdrawal sx Plan: continue detox increase fluids
[2017-01-12] MEDS: PRENATAL VITAMINS W/ FOLIC ACID TABLET (FP) PO SCH (10:35)
[2017-01-12] MEDS: NAPROXEN 500 MG TABLET (FP) PO SCH ×2 (10:35→22:11)
[2017-01-12] MEDS: METHADONE HCL 5 MG TABLET (FOR DETOX USE ONLY) PO SCH (10:36)
[2017-01-12] MEDS: LIDOCAINE 5% TOPICAL PATCH TP SCH (10:36)
[2017-01-12] MEDS: NICOTINE 21 MG/24 HOURS TOPICAL PATCH TD SCH (10:36)
[2017-01-12] MEDS: chlordiazePOXIDE HCL 25 MG CAPSULE PO PRN (13:00)
[2017-01-12] MEDS: chlordiazePOXIDE 5 MG CAPSULE PO SCH ×2 (16:34→22:10)
[2017-01-12] MEDS ORDERED: RANITIDINE HCL 150 MG TABLET (FP) PO ONE (20:50)
--- NOTE | 2017-01-12 20:52 | PN ---
S Progress Note Note: acid reflux maalox not effective treated with naxium at home order zantec 150 mg po bid 150 mg x 1 now encourage health teaching on dietary modification continue detox
[2017-01-12] MEDS: QUEtiapine FUMARATE 50 MG TABLET PO SCH (22:11)
[2017-01-12] MEDS: THIAMINE HCL 100 MG TABLET (FP) PO SCH (22:11)
[2017-01-13] MEDS: chlordiazePOXIDE 5 MG CAPSULE PO SCH ×2 (06:27→10:53)
[2017-01-13] MEDS: PRENATAL VITAMINS W/ FOLIC ACID TABLET (FP) PO SCH (10:52)
[2017-01-13] MEDS: METHADONE HCL 5 MG TABLET (FOR DETOX USE ONLY) PO SCH (10:53)
[2017-01-13] MEDS: NICOTINE 21 MG/24 HOURS TOPICAL PATCH TD SCH (10:53)
[2017-01-13] MEDS: RANITIDINE HCL 150 MG TABLET (FP) PO SCH ×2 (10:53→22:21)
[2017-01-13] MEDS: NAPROXEN 500 MG TABLET (FP) PO SCH ×2 (10:53→22:22)
[2017-01-13] MEDS: LIDOCAINE 5% TOPICAL PATCH TP SCH (10:54)
[2017-01-13] MEDS ORDERED: ASPIRIN 81 MG CHEWABLE TABLETS PO ONE (11:05)
--- NOTE | 2017-01-13 13:00 | PN ---
BHS Progress Note (SOAP) Subjective: ALERT,IRRITABLE,ANXIOUS,INTERRUPTED SLEEP,PAIN IN THE BODY AND BACK Objective: 01/13/17 12:59 Vital Signs Temperature 97.5 F L 01/13/17 10:37 Pulse Rate 76 01/13/17 10:37 Respiratory Rate 18 01/13/17 10:37 Blood Pressure 118/72 01/13/17 10:37 O2 Sat by Pulse Oximetry (%) Assessment: 01/13/17 12:59 WITHDRAWAL SYMPTOM Plan: CONTINUE DETOX
[2017-01-13] MEDS: chlordiazePOXIDE HCL 25 MG CAPSULE PO PRN (15:27)
[2017-01-13] MEDS: chlordiazePOXIDE HCL 10 MG CAPSULE PO SCH ×2 (18:07→22:22)
[2017-01-13] MEDS: THIAMINE HCL 100 MG TABLET (FP) PO SCH (22:21)
[2017-01-13] MEDS: QUEtiapine FUMARATE 50 MG TABLET PO SCH (22:22)
[2017-01-13] MEDS: diphenhydrAMINE HCL 50 MG CAPSULE PO PRN (22:23)
[2017-01-14] MEDS: chlordiazePOXIDE HCL 10 MG CAPSULE PO SCH ×2 (05:58→10:36)
[2017-01-14] MEDS ORDERED: METHADONE HCL 10 MG TABLET (FOR DETOX USE ONLY) PO SCH (10:00)
[2017-01-14] MEDS: NICOTINE 21 MG/24 HOURS TOPICAL PATCH TD SCH (10:34)
[2017-01-14] MEDS: PRENATAL VITAMINS W/ FOLIC ACID TABLET (FP) PO SCH (10:35)
[2017-01-14] MEDS: RANITIDINE HCL 150 MG TABLET (FP) PO SCH ×2 (10:35→22:12)
[2017-01-14] MEDS: NAPROXEN 500 MG TABLET (FP) PO SCH ×2 (10:35→22:12)
[2017-01-14] MEDS: ASPIRIN 81 MG CHEWABLE TABLETS PO SCH (10:35)
--- NOTE | 2017-01-14 11:54 | PN ---
S Progress Note (SOAP) Subjective: ALERT,IRRITABLE,ANXIOUS,INTERRUPTED Objective: 01/14/17 11:55 Vital Signs Temperature 97.2 F L 01/14/17 09:58 Pulse Rate 69 01/14/17 09:58 Respiratory Rate 20 01/14/17 09:58 Blood Pressure 118/73 01/14/17 09:58 O2 Sat by Pulse Oximetry (%) Assessment: 01/14/17 11:55 WITHDRAWAL SYMPTOM Plan: CONTINUE DETOX,DISCHARGE IN AM
[2017-01-14] MEDS: LIDOCAINE 5% TOPICAL PATCH TP SCH (12:14)
[2017-01-14] MEDS: hydrOXYzine PAMOATE 50 MG CAPSULE (FP) PO PRN ×2 (12:17→18:23)
[2017-01-14] MEDS: THIAMINE HCL 100 MG TABLET (FP) PO SCH (22:12)
[2017-01-14] MEDS: QUEtiapine FUMARATE 50 MG TABLET PO SCH (22:13)
[2017-01-14] MEDS: diphenhydrAMINE HCL 50 MG CAPSULE PO PRN (22:14)
[2017-01-15] MEDS ORDERED: METHADONE HCL 5 MG TABLET (FOR DETOX USE ONLY) PO SCH (06:00)
[2017-01-15 06:34] VITALS: TEMP 97.9
--- NOTE | 2017-01-15 08:59 | DS ---
[facility] Detox Discharge Summary Admission Date: 01/10/17 Discharge Date: 01/15/17 - History Present History: Alcohol Dependence, Cocaine Dependence, Opioid Dependence, Pcp Dependence - Physical Exam Results Vital Signs: Vital Signs Temperature 97.9 F 01/15/17 06:00 Pulse Rate 86 01/15/17 06:00 Respiratory Rate 18 01/15/17 06:00 Blood Pressure 104/69 01/15/17 06:00 O2 Sat by Pulse Oximetry (%) - Treatment Hospital Course: Detox Protocol Followed, Detoxed Safely, Responded well, Discharged Condition Good, Rehab Referral Accepted - Medication Discharge Medications: Ambulatory Orders Albuterol Sulfate Inhaler - [Ventolin HFA Inhaler -] 2 inh IH Q4H PRN #0 inh 12/10 Aspirin [ASA -] 81 mg PO DAILY 11/07/16 Gabapentin [Neurontin -] 300 mg PO Q8H 11/07/16 Naproxen [Naprosyn -] 500 mg PO BID 11/07/16 Quetiapine Fumarate [Seroquel -] 50 mg PO HS #30 tablet 01/10/17 - Diagnosis (1) Alcohol dependence with withdrawal, unspecified Current Visit: Yes Status: Chronic Qualifiers: Complication of substance-induced condition: uncomplicated Qualified Code(s): F10.230 - Alcohol dependence with withdrawal, uncomplicated (2) Arteriosclerotic heart disease (ASHD) Current Visit: Yes Status: Chronic (3) Asthma Current Visit: Yes Status: Chronic (4) Cocaine dependence Current Visit: Yes Status: Chronic Qualifiers: Substance use status: uncomplicated Qualified Code(s): F14.20 - Cocaine dependence, uncomplicated (5) Essential hypertension Current Visit: Yes Status: Chronic (6) GERD (gastroesophageal reflux disease) Current Visit: Yes Status: Chronic Qualifiers: Esophagitis presence: without esophagitis Qualified Code(s): K21.9 - Gastro-esophageal reflux disease without esophagitis (7) Low back pain Current Visit: Yes Status: Chronic Qualifiers: Chronicity: chronic Back pain laterality: unspecified (8) Nicotine dependence Current Visit: Yes Status: Chronic Qualifiers: Nicotine product type: cigarettes Substance use status: uncomplicated Qualified Code(s): F17.210 - Nicotine dependence, cigarettes, uncomplicated (9) Opioid dependence with withdrawal Current Visit: Yes Status: Chronic - AMA Did Patient Leave Against Medical Advice: No
[2017-01-15] MEDS: LIDOCAINE 5% TOPICAL PATCH TP SCH (10:30)
[2017-01-15] MEDS: ASPIRIN 81 MG CHEWABLE TABLETS PO SCH (10:31)
[2017-01-15] MEDS: NAPROXEN 500 MG TABLET (FP) PO SCH (10:31)
[2017-01-15] MEDS: PRENATAL VITAMINS W/ FOLIC ACID TABLET (FP) PO SCH (10:31)
[2017-01-15] MEDS: RANITIDINE HCL 150 MG TABLET (FP) PO SCH (10:31)
[2017-01-15] MEDS: NICOTINE 21 MG/24 HOURS TOPICAL PATCH TD SCH (10:31)
[2017-01-15 10:32] VITALS: BP 117/68; PULSE 79
== END 2017-01-15 13:30 | disposition home or self-care (01) | DRG 773 ==
LOC: YASAS 11:50 → Y6N 15:45
PROVIDERS: ADMIT Internal Medicine Addiction Medicine; ATTEND Internal Medicine Addiction Medicine
PROC: HZ2ZZZZ Detoxification Services for Substance Abuse Treatment (ICD-10-PCS; principal; 2017-01-15)
DX: F11.23 Opioid dependence with withdrawal (principal); F10.230 Alcohol dependence with withdrawal, uncomplicated; F14.20 Cocaine dependence, uncomplicated; F17.210 Nicotine dependence, cigarettes, uncomplicated; F16.10 Hallucinogen abuse, uncomplicated; F19.24 Other psychoactive substance dependence with psychoactive substance-induced mood disorder; I25.10 Atherosclerotic heart disease of native coronary artery without angina pectoris; I10 Essential (primary) hypertension; K21.9 Gastro-esophageal reflux disease without esophagitis; M54.5 Low back pain; G89.29 Other chronic pain
CPT/HCPCS: 36415; 80053; 81003; 85027; 86593; 87522; 93005; 93010

== ENCOUNTER 2017-03-25 10:16 | Inpatient (IN) | payer OTHER ==
[2017-03-25 10:45] VITALS: BMI 25.5
--- NOTE | 2017-03-25 12:02 | HP ---
COWS - Scale Resting Pulse: 0= [place] 80 or Below Sweatin= Chills/Flushing Restless Observation: 1= Difficult to Sit Still Pupil Size: 1= Pupils >than Normal Bone or Joint Aches: 2= Severe Diffuse Aches Runny Nose/ Eye Tearin= Runny Nose/Eyes GI Upset > 30mins: 3= Vomiting/Diarrhea Tremor Observation: 2= Slight Tremor Visible Yawning Observation: 1= 1-2x During Session Anxiety or Irritability: 2=Irritable/Anxious Goose Flesh Skin: 0=Smooth Skin COWS Score: 15 CIWA Score - CIWA Score Nausea/Vomitin Muscle Tremors: 3 Anxiety: 3 Agitation: 1-Slight > Activity Paroxysmal Sweats: 3 Orientation: 0-Oriented Tacttile Disturbances: 0-None Auditory Disturbances: 0-None Visual Disturbances: 3-Moderate Sensitivity Headache: 2-Mild CIWA-Ar Total Score: 20 Admission [facility] Chief Complaint: "I am here to Detox." Pt. is here to Detox from Alcohol and Heroin. Allergies/Adverse Reactions: Allergies Allergy/AdvReac Type Severity Reaction Status Date / Time DUCK SAUCE Allergy Severe Hives Uncoded 03/25/17 11:24 NKDA Allergy Uncoded 03/25/17 11:24 History of Present Illness: Pt. is a 61 YO male here to Detox from Alcohol and Heroin. Pt. has had several previous Detox admissions at [facility]. Exam Limitations: No Limitations - Ebola screening Have you traveled outside of the country in the last 21 days: No Have you had contact with anyone from an Ebola affected area: No Have you been sick,other than usual withdrawal symptoms: No Do you have a fever: No - Review of Systems Constitutional: Diaphoresis, Loss of Appetite, Malaise, Night Sweats, Changes in sleep, Unintentional Wgt. Loss (Lost approx. 40 lbs. over last 1 year.) EENT: reports: Tearing, Nose Congestion, Sinus Pressure Respiratory: reports: Cough Cardiac: reports: No Symptoms Reported GI: reports: Diarrhea, Nausea, Poor Appetite, Vomiting, Indigestion, Abdominal cramping : reports: No Symptoms Reported Musculoskeletal: reports: Back Pain, Joint Pain, Muscle Pain, Joint Stiffness Integumentary: reports: No Symptoms Reported Neuro: reports: Headache, Tremors Endocrine: reports: No Symptoms Reported Hematology: reports: No Symptoms Reported Psychiatric: reports: Judgement Intact, Mood/Affect Appropiate, Orientated x3, Anxious, Depressed (Takes Seroquel.) Other Systems: Reviewed and Negative Patient History - Patient Medical History Hx Anemia: No Hx Asthma: Yes (Uses Albuterol Inhaler.) Hx Chronic Obstructive Pulmonary Disease (COPD): No Hx Cancer: No Hx Cardiac Disorders: Yes (Arrythmia (Unsure which type).) Hx Congestive Heart Failure: No Hx Hypertension: No Hx Hypercholesterolemia: No Hx Pacemaker: No HX Cerebrovascular Accident: No Hx Seizures: No Hx Dementia: No Hx Diabetes: No Hx Gastrointestinal Disorders: No Hx Liver Disease: No Hx Genitourinary Disorders: No Hx Sexually Transmitted Disorders: No Hx Renal Disease (ESRD): No Hx Thyroid Disease: No Hx Human Immunodeficiency Virus (HIV): No (LAST 08/13 NEGATIVE) Hx Hepatitis C: Yes (Diagnosed in 2013. No treatment yet.) Hx Depression: Yes (On med.) Hx Suicide Attempt: No (PATIENT DENIES CURRENT SI / HI.) Hx Bipolar Disorder: No Hx Schizophrenia: No Other Medical History: Hx of Coumadin use (Stopped by approx. 1 year ago). Hx Spinal Stenosis. - Patient Surgical History Past Surgical History: Yes Hx Neurologic Surgery: No Hx Cataract Extraction: No Hx Cardiac Surgery: No Hx Lung Surgery: No Hx Breast Surgery: No Hx Breast Biopsy: No Hx Abdominal Surgery: Yes (Incisional hernia repair in 2010.) Hx Appendectomy: No Hx Cholecystectomy: No Hx Genitourinary Surgery: No Hx Section: No Hx Orthopedic Surgery: No Other Surgical History: Chest sx in 2010 (Unsure of reason). Anesthesia Reaction: No - PPD History Previous Implant?: Yes Documented Results: Negative w/proof Implanted On Prior R Admission?: Yes Date: 02/09/16 Results: 0 mm PPD to be Administered?: Yes - Reproductive History Patient is a Female of Child Bearing Age (11 -55 yrs old): No (PATIENT IS MALE.) - Smoking Cessation Smoking history: Current every day smoker Have you smoked in the past 12 months: Yes Aproximately how many cigarettes per day: 20 Cigars Per Day: 0 Hx Chewing Tobacco Use: No Initiated information on smoking cessation: Yes 'Breaking Loose' booklet given: 03/25/17 (GIVEN ON UNIT.) - Substance & Tx. History Hx Alcohol Use: Yes Hx Substance Use: Yes Substance Use Type: Alcohol, Cocaine, Heroin Hx Substance Use Treatment: Yes (Previous Detox admissions at [facility].) - Substances Abused Alcohol Route: Oral Frequency: Daily Amount used: beer)2-6pks 45s)/vodka1 pint) Age of first use: 26 Date of Last Use: 03/23/17 Heroin Route: Inhalation Frequency: Daily Amount used: 15 bags Age of first use: 10 Date of Last Use: 03/24/17 Cocaine Route: Inhalation Frequency: 3-6 times per week Amount used: 2 Grams Age of first use: 26 Date of Last Use: 03/23/17 Family Disease History - Family Disease History Family History: Denies Admission Physical Exam [facility] - Vital Signs Vital Signs: Vital Signs - 24 hr 03/25/17 10:43 Temperature 97.8 F Pulse Rate 65 Respiratory 20 Rate Blood Pressure 141/80 - Physical General Appearance: Yes: No Apparent Distress, Nourished, Appropriately Dressed , Tremorous, Anxious HEENTM: Yes: Hearing grossly Normal, Normocephalic, Normal Voice, KARISSA, Pharynx Normal Respiratory: Yes: Chest Non-Tender, No Respiratory Distress, Wheezing Neck: Yes: No masses,lesions,Nodules, Supple, Trachea in good position Breast: Yes: Breast Exam Deferred Cardiology: Yes: Regular Rhythm, Regular Rate, S1, S2 Abdominal: Yes: Normal Bowel Sounds, Non Tender, Flat, Soft Genitourinary: Yes: Within Normal Limits Back: Yes: Decreased Range of Motion, Vertebral Tenderness Musculoskeletal: Yes: Gait Steady, Back pain, Joint Stiffness, Muscle Pain Extremities: Yes: Tremors, Other (Limited ROM in Left shoulder.) Neurological: Yes: Fully Oriented, Alert, Normal Mood/Affect, Normal Response Integumentary: Yes: Normal Color, Dry, Warm Lymphatic: Yes: Within Normal Limits - Diagnostic (1) Asthma Current Visit: Yes Status: Chronic (2) Nicotine dependence Current Visit: Yes Status: Chronic Qualifiers: Nicotine product type: cigarettes Substance use status: uncomplicated Qualified Code(s): F17.210 - Nicotine dependence, cigarettes, uncomplicated (3) Opioid dependence with withdrawal Current Visit: Yes Status: Acute (4) Alcohol dependence with uncomplicated withdrawal Current Visit: Yes Status: Acute (5) Cocaine dependence, uncomplicated Current Visit: Yes Status: Acute (6) History of cardiac arrhythmia Current Visit: Yes Status: Chronic (7) Spinal stenosis Current Visit: Yes Status: Chronic Qualifiers: Spinal region: lumbar Qualified Code(s): M48.06 - Spinal stenosis, lumbar region (8) Hepatitis C Current Visit: Yes Status: Chronic Qualifiers: Viral hepatitis chronicity: carrier Qualified Code(s): B18.2 - Chronic viral hepatitis C Cleared for Admission [facility] - Detox or Rehab [facility] Level of Care: Medically Managed Detox Regimen/Protocol: Methadone/Librium [facility] Breath Alcohol Content Breath Alcohol Content: 0 Urine Drug Screen - Results Drug Screen Negative: No Urine Drug Screen Results: TYRON-Cocaine, OPI-Opiates, PCP-Phencyclidine
[2017-03-25] MEDS ORDERED: MAG HYDROX/AL HYDROX/SIMETH 30 ML UNIT-DOSE CUP PO PRN (12:38)
[2017-03-25] MEDS ORDERED: MAGNESIUM CITRATE 300 ML BOTTLE PO PRN (12:38)
[2017-03-25] MEDS ORDERED: P-EPHED 60MG/TRIPROLIDI 2.5MG TABLET PO PRN (12:38)
[2017-03-25] MEDS ORDERED: chlordiazePOXIDE HCL 25 MG CAPSULE PO ONE (12:38)
[2017-03-25] MEDS ORDERED: MENTHOL/PHENOL 1 EACH UD MM PRN (12:38)
[2017-03-25] MEDS ORDERED: ACETAMINOPHEN 325 MG TABLET (FP) PO PRN (12:38)
[2017-03-25] MEDS ORDERED: LOPERAMIDE HCL 2 MG CAPSULE PO PRN (12:38)
[2017-03-25] MEDS ORDERED: NICOTINE POLACRILEX 2 MG GUM BUC PRN (12:38)
[2017-03-25] MEDS ORDERED: guaiFENesin/D-METHORPHAN HB 10 ML UNIT-DOSE CUPS PO PRN (12:38)
[2017-03-25] MEDS ORDERED: METHADONE HCL 10 MG TABLET (FOR DETOX USE ONLY) PO ONE ×2 (12:38→23:00)
[2017-03-25] MEDS ORDERED: hydrOXYzine PAMOATE 50 MG CAPSULE (FP) PO PRN (12:38)
[2017-03-25] MEDS ORDERED: ALBUTEROL SO4 6.7 GM HFA INHALER IH PRN (12:49)
[2017-03-25] MEDS: NICOTINE 21 MG/24 HOURS TOPICAL PATCH TD SCH (14:12)
[2017-03-25] MEDS: ASPIRIN 81 MG CHEWABLE TABLETS PO SCH (14:12)
[2017-03-25] MEDS: GABAPENTIN 300 MG CAPSULE (FP) PO SCH ×2 (14:12→22:29)
[2017-03-25] MEDS: chlordiazePOXIDE HCL 25 MG CAPSULE PO SCH ×2 (17:11→22:30)
[2017-03-25 18:20] LABS: URINE APPEARANCE CLEAR; URINE BILIRUBIN NEGATIVE (NEGATIVE); URINE COLOR YELLOW; URINE GLUCOSE (UA) NEGATIVE (NEGATIVE); URINE KETONE NEGATIVE (NEGATIVE); URINE LEUK ESTERASE NEGATIVE (NEGATIVE); URINE NITRITE NEGATIVE (NEGATIVE); URINE PROTEIN NEGATIVE (NEGATIVE); URINE UROBILINOGEN NEGATIVE E.U./dl (0.2-1.0)
[2017-03-25 18:42] LABS: URINE BLOOD 1+ (NEGATIVE)
[2017-03-25 18:48] LABS: URINE HYALINE CAST 3 /lpf; URINE MUCUS RARE; URINE RBC 4 /hpf (0-3); URINE WBC 2 /hpf (3-5)
[2017-03-25] MEDS: NAPROXEN 500 MG TABLET (FP) PO SCH (22:29)
[2017-03-25] MEDS: THIAMINE HCL 100 MG TABLET (FP) PO SCH (22:30)
[2017-03-25] MEDS: diphenhydrAMINE HCL 50 MG CAPSULE PO PRN (22:33)
[2017-03-26] MEDS: diphenhydrAMINE HCL 50 MG CAPSULE PO PRN (00:31)
[2017-03-26] MEDS: chlordiazePOXIDE HCL 25 MG CAPSULE PO SCH ×4 (05:27→22:22)
[2017-03-26] MEDS: GABAPENTIN 300 MG CAPSULE (FP) PO SCH ×3 (05:27→22:22)
[2017-03-26] MEDS ORDERED: METHADONE HCL 10 MG TABLET (FOR DETOX USE ONLY) PO SCH (10:00)
--- NOTE | 2017-03-26 10:21 | CONSULT ---
[facility] Psychiatric Consult - Data Date of interview: 03/26/17 Admission source: [facility] Identifying data: Readmission to [facility] for this 61 y/o AA male seeking detox treatment on for heroin,cocaine and alcohol dependence.Patient is ,a father of two,homeless,unemployed and supported on SSI benefits. Substance Abuse History: - Smoking Cessation. Smoking history: Current every day smoker. Have you smoked in the past 12 months: Yes. Aproximately how many cigarettes per day: 20. Cigars Per Day: 0. Hx Chewing Tobacco Use: No. Initiated information on smoking cessation: Yes. 'Breaking Loose' booklet given : 03/25/17 (GIVEN ON UNIT.). - Substance & Tx. History. Hx Alcohol Use: Yes. Hx Substance Use: Yes. Substance Use Type: Alcohol, Cocaine, Heroin. Hx Substance Use Treatment: Yes (Previous Detox admissions at [facility] - Substances Abused. Alcohol. Route: Oral. Frequency: Daily. Amount used: beer)2-6pks 45s)/vodka1 pint). Age of first use: 26. Date of Last Use: . Heroin. Route: Inhalation. Frequency: Daily. Amount used: 15 bags. Age of first use: 10. Date of Last Use: 03/24/17. Cocaine. Route: Inhalation. Frequency: 3-6 times per week. Amount used: 2 Grams. Age of first use: 26. Date of Last Use: 03/23/17. Confirmed by patient. Medical History: Hepatitis C,bronchial asthma,hypertension,GERD,low back pain, past incisional herniorraphy and spinal stenosis. Psychiatric History: Patient is a poor historian.He denies having a psychiatric diagnosis but records indicate Bipolar Disorder in addition to substance abuse.No history of psychiatric hospitalizations.No OPD care.Mr Gay continues to report insomnia and he is willing to take seroquel at bedtime (50 mg).No history of suicide attempts. Physical/Sexual Abuse/Trauma History: Patient denies. Additional Comment: Urine Drug Screen Results: TYRON-Cocaine, OPI-Opiates, PCP- Phencyclidine.Noted. Mental Status Exam - Mental Status Exam Alert and Oriented to: Time, Place, Person Cognitive Function: Good Patient Appearance: Well Groomed Mood: Withdrawn Affect: Constricted Patient Behavior: Sedated (light sedation), Fatigued Speech Pattern: Slurred Voice Loudness: Moderately Soft/Quiet Thought Process: Goal Oriented Thought Disorder: Not Present Hallucinations: Denies Suicidal Ideation: Denies Homicidal Ideation: Denies Insight/Judgement: Poor Sleep: Poorly, Difficulty falling asleep Appetite: Fair Muscle strength/Tone: Normal Gait/Station: Normal Psychiatric Findings - Problem List ([place] 1, 2,3) (1) Alcohol dependence with uncomplicated withdrawal Current Visit: Yes Status: Acute (2) Cocaine dependence, uncomplicated Current Visit: Yes Status: Acute (3) Opioid dependence with withdrawal Current Visit: Yes Status: Acute (4) Nicotine dependence Current Visit: Yes Status: Acute Qualifiers: Nicotine product type: cigarettes Substance use status: uncomplicated Qualified Code(s): F17.210 - Nicotine dependence, cigarettes, uncomplicated (5) PCP (phencyclidine) abuse Current Visit: Yes Status: Acute (6) Substance induced mood disorder Current Visit: Yes Status: Acute (7) Asthma Current Visit: Yes Status: Chronic (8) Hepatitis C Current Visit: Yes Status: Chronic Qualifiers: Viral hepatitis chronicity: carrier Qualified Code(s): B18.2 - Chronic viral hepatitis C (9) Spinal stenosis Current Visit: Yes Status: Chronic Qualifiers: Spinal region: lumbar Qualified Code(s): M48.06 - Spinal stenosis, lumbar region (10) Essential hypertension Current Visit: Yes Status: Chronic (11) History of cardiac arrhythmia Current Visit: Yes Status: Chronic (12) Arteriosclerotic heart disease (ASHD) Current Visit: Yes Status: Chronic (13) GERD (gastroesophageal reflux disease) Current Visit: Yes Status: Chronic Qualifiers: Esophagitis presence: without esophagitis Qualified Code(s): K21.9 - Gastro-esophageal reflux disease without esophagitis (14) Low back pain Current Visit: Yes Status: Chronic Qualifiers: Chronicity: chronic Back pain laterality: unspecified (15) Insomnia Current Visit: Yes Status: Acute - Initial Treatment Plan Initial Treatment Plan: Psychoeducation.Detoxification.Seroquel 50 mg po hs.Side effects/benefits discussed with patient.He agrees with this careplan.Observation.
[2017-03-26] MEDS: ASPIRIN 81 MG CHEWABLE TABLETS PO SCH (10:29)
[2017-03-26] MEDS: NAPROXEN 500 MG TABLET (FP) PO SCH ×2 (10:29→22:22)
[2017-03-26] MEDS: PRENATAL VITAMINS W/ FOLIC ACID TABLET (FP) PO SCH (10:29)
[2017-03-26] MEDS: NICOTINE 21 MG/24 HOURS TOPICAL PATCH TD SCH (10:30)
--- NOTE | 2017-03-26 11:07 | EKG ---
Test Reason : Blood Pressure : / mmHG Vent. Rate : 060 BPM Atrial Rate : 060 BPM P-R Int : 162 ms QRS Dur : 108 ms QT Int : 436 ms P-R-T Axes : 079 -40 -34 degrees QTc Int : 436 ms NORMAL SINUS RHYTHM LEFT AXIS DEVIATION ANTEROSEPTAL INFARCT (CITED ON OR BEFORE 07-NOV-2016) T-WAVE INVERSION IN INFERIOR LEADS ABNORMAL ECG WHEN COMPARED WITH ECG OF 10-JAN-2017 20:28, T WAVE INVERSION LESS EVIDENT IN INFERIOR LEADS Confirmed by NEGRA CASEY MD ([id number]) on 03/26/2017 11:06:46 AM Referred By: Confirmed By:NEGRA CASEY MD
--- NOTE | 2017-03-26 13:41 | PN ---
[facility] CIWA - CIWA Score Nausea/Vomitin Muscle Tremors: 4-Moderate,w/Arms Extend Anxiety: 4-Mod. Anxious/Guarded Agitation: 4-Moderately Restless Paroxysmal Sweats: 1-Minimal Palms Moist Orientation: 0-Oriented Tacttile Disturbances: 1-Very Mild Itch/Numbness Auditory Disturbances: 0-None Visual Disturbances: 0-None Headache: 2-Mild CIWA-Ar Total Score: 19 [facility] COWS - Scale Resting Pulse: 0= [place] 80 or Below Sweatin= Chills/Flushing Restless Observation: 3= Extraneous Movement Pupil Size: 1= Pupils >than Normal Bone or Joint Aches: 2= Severe Diffuse Aches Runny Nose/ Eye Tearin= Runny Nose/Eyes GI Upset > 30mins: 1= Stomach Cramp Tremor Observation of Outstretched Hands: 2= Slight Tremor Visible Yawning Observation: 1= 1-2x During Session Anxiety or Irritability: 2=Irritable/Anxious Goose Flesh Skin: 0=Smooth Skin COWS Score: 15 [facility] Progress Note (SOAP) Subjective: Anxious, sweating, interrupted sleep, tremor, chills Objective: 03/26/17 13:39 Last Vital Signs Temp Pulse Resp BP Pulse Ox 96.0 F L 61 18 126/80 03/26/17 13:20 03/26/17 13:20 03/26/17 13:20 03/26/17 13:20 Laboratory Tests 03/25/17 18:01 Urine Color Yellow Urine Appearance Clear Urine pH 5.0 Ur Specific [place] 1.020 Urine Protein Negative Urine Glucose (UA) Negative Urine Ketones Negative Urine Blood 1+ H Urine Nitrite Negative Urine Bilirubin Negative Urine Urobilinogen Negative Ur Leukocyte Esterase Negative Urine RBC 4 Urine WBC 2 Ur Epithelial Cells Rare Hyaline Casts 3 Urine Mucus Rare UA: noted (1+ blood) Assessment: 03/26/17 13:40 Withdrawal symptoms Noted with microscopic hematuria Plan: Continue detox Microscopic hematuria: encouraged to drink lots of water, repeat UA Follow up on admission lab results (in progress)
[2017-03-26 14:13] LABS: MCH 30.5 pg (25.7-33.7); MEAN CELL VOLUME 92.2 fl (80-96); MEAN PLT VOLUME 9.4 fl (7.5-11.1); PLATELET COUNT 279 K/MM3 (134-434); RDW 14.3 % (11.9-15.9); WHITE BLOOD COUNT 7.8 K/mm3 (4.0-10.0)
[2017-03-26 14:29] LABS: CALCIUM 8.6 mg/dL (8.5-10.1)
[2017-03-26 14:35] LABS: ALBUMIN 3.3 g/dl (3.4-5.0); ALK PHOS 74 U/L (45-117); ANION GAP 11 (8-16); BILIRUBIN,TOTAL 0.8 mg/dL (0.2-1.0); CO2 29 mmol/L (21-32); COCKROFT - GAULT 91.27; CREATININE 0.9 mg/dL (0.7-1.3); GLUCOSE,RANDOM 110 mg/dL (74-106); SGOT/AST 17 U/L (15-37); SGPT/ALT 24 U/L (12-78); TOT PROT 6.2 g/dl (6.4-8.2)
[2017-03-26 14:38] LABS: INR 1.17 (0.82-1.09); PROTHROMBIN TIME (PATIENT) 12.9 SEC (9.98-11.88)
[2017-03-26] MEDS: chlordiazePOXIDE HCL 25 MG CAPSULE PO PRN (19:53)
[2017-03-26] MEDS: THIAMINE HCL 100 MG TABLET (FP) PO SCH (22:22)
[2017-03-26] MEDS: QUEtiapine FUMARATE 50 MG TABLET PO SCH (22:22)
[2017-03-27] MEDS: GABAPENTIN 300 MG CAPSULE (FP) PO SCH ×3 (05:39→22:30)
[2017-03-27] MEDS: chlordiazePOXIDE HCL 25 MG CAPSULE PO SCH ×2 (06:12→10:28)
[2017-03-27] MEDS: ASPIRIN 81 MG CHEWABLE TABLETS PO SCH (10:28)
[2017-03-27] MEDS: NICOTINE 21 MG/24 HOURS TOPICAL PATCH TD SCH (10:28)
[2017-03-27] MEDS: PRENATAL VITAMINS W/ FOLIC ACID TABLET (FP) PO SCH (10:28)
[2017-03-27] MEDS: METHADONE HCL 5 MG TABLET (FOR DETOX USE ONLY) PO SCH (10:28)
[2017-03-27] MEDS: NAPROXEN 500 MG TABLET (FP) PO SCH ×2 (10:28→22:30)
--- NOTE | 2017-03-27 11:59 | PN ---
[facility] COWS - Scale Resting Pulse: 1= [place] 81-100 Sweatin=Flushed/Facial Moisture Restless Observation: 1= Difficult to Sit Still Pupil Size: 0= Normal to Room Light Bone or Joint Aches: 2= Severe Diffuse Aches Runny Nose/ Eye Tearin= Runny Nose/Eyes GI Upset > 30mins: 2= Nausea/Diarrhea Tremor Observation of Outstretched Hands: 2= Slight Tremor Visible Yawning Observation: 1= 1-2x During Session Anxiety or Irritability: 2=Irritable/Anxious Goose Flesh Skin: 0=Smooth Skin COWS Score: 15 [facility] Progress Note (SOAP) Subjective: Sweating,anxiety,tremors,interrupted sleep,restless,body aches. Objective: 03/27/17 11:58 Vital Signs - 8 hr 03/27/17 03/27/17 06:16 09:17 Temperature 96.6 F L 96.3 F L Pulse Rate 83 76 Respiratory 16 18 Rate Blood Pressure 103/70 123/84 Laboratory Tests 03/25/17 03/26/17 03/26/17 18:01 07:12 07:12 WBC 7.8 RBC 4.35 Hgb 13.2 Hct 40.1 MCV 92.2 MCHC 33.0 RDW 14.3 Plt Count 279 MPV 9.4 INR Sodium 143 Potassium 4.0 Chloride 103 Carbon Dioxide 29 Anion Gap 11 BUN 9 D Creatinine 0.9 Creat Clearance w eGFR > 60 Random Glucose 110 H Calcium 8.6 Total Bilirubin 0.8 AST 17 D ALT 24 D Alkaline Phosphatase 74 Total Protein 6.2 L Albumin 3.3 L Urine Color Yellow Urine Appearance Clear Urine pH 5.0 Ur Specific [place] 1.020 Urine Protein Negative Urine Glucose (UA) Negative Urine Ketones Negative Urine Blood 1+ H Urine Nitrite Negative Urine Bilirubin Negative Urine Urobilinogen Negative Ur Leukocyte Esterase Negative Urine RBC 4 Urine WBC 2 Ur Epithelial Cells Rare Hyaline Casts 3 Urine Mucus Rare RPR Titer 03/26/17 03/26/17 07:12 07:12 WBC RBC Hgb Hct MCV MCHC RDW Plt Count MPV INR 1.17 H Sodium Potassium Chloride Carbon Dioxide Anion Gap BUN Creatinine Creat Clearance w eGFR Random Glucose Calcium Total Bilirubin AST ALT Alkaline Phosphatase Total Protein Albumin Urine Color Urine Appearance Urine pH Ur Specific [place] Urine Protein Urine Glucose (UA) Urine Ketones Urine Blood Urine Nitrite Urine Bilirubin Urine Urobilinogen Ur Leukocyte Esterase Urine RBC Urine WBC Ur Epithelial Cells Hyaline Casts Urine Mucus RPR Titer Nonreactive labs noted Assessment: 03/27/17 11:59 Withdrawal sx. Plan: Continue detox
[2017-03-27] MEDS: chlordiazePOXIDE HCL 25 MG CAPSULE PO PRN (15:02)
[2017-03-27] MEDS: chlordiazePOXIDE 5 MG CAPSULE PO SCH ×2 (17:39→22:30)
[2017-03-27] MEDS: THIAMINE HCL 100 MG TABLET (FP) PO SCH (22:30)
[2017-03-27] MEDS: QUEtiapine FUMARATE 50 MG TABLET PO SCH (22:30)
[2017-03-27] MEDS: diphenhydrAMINE HCL 50 MG CAPSULE PO PRN (22:32)
[2017-03-28] MEDS: chlordiazePOXIDE 5 MG CAPSULE PO SCH ×2 (05:39→10:17)
[2017-03-28] MEDS: GABAPENTIN 300 MG CAPSULE (FP) PO SCH ×3 (05:39→22:24)
[2017-03-28] MEDS: METHADONE HCL 5 MG TABLET (FOR DETOX USE ONLY) PO SCH (09:27)
[2017-03-28] MEDS: NAPROXEN 500 MG TABLET (FP) PO SCH ×2 (09:27→22:24)
[2017-03-28] MEDS: PRENATAL VITAMINS W/ FOLIC ACID TABLET (FP) PO SCH (09:28)
[2017-03-28] MEDS: ASPIRIN 81 MG CHEWABLE TABLETS PO SCH (09:28)
[2017-03-28] MEDS: NICOTINE 21 MG/24 HOURS TOPICAL PATCH TD SCH (09:29)
[2017-03-28] MEDS: MAGNESIUM HYDROX 2400MG/30ML ORAL SUSPENSION 30 ML CUP PO PRN ×2 (14:12→17:21)
--- NOTE | 2017-03-28 15:03 | PN ---
[facility] Progress Note (SOAP) Subjective: Sweating,interrupted sleep,restless. Objective: 03/28/17 15:02 Vital Signs - 8 hr 03/28/17 09:27 Temperature 97.3 F L Pulse Rate 95 H Respiratory 20 Rate Blood Pressure 112/77 Laboratory Tests 03/25/17 03/26/17 03/26/17 18:01 07:12 07:12 WBC 7.8 RBC 4.35 Hgb 13.2 Hct 40.1 MCV 92.2 MCHC 33.0 RDW 14.3 Plt Count 279 MPV 9.4 INR Sodium 143 Potassium 4.0 Chloride 103 Carbon Dioxide 29 Anion Gap 11 BUN 9 D Creatinine 0.9 Creat Clearance w eGFR > 60 Random Glucose 110 H Calcium 8.6 Total Bilirubin 0.8 AST 17 D ALT 24 D Alkaline Phosphatase 74 Total Protein 6.2 L Albumin 3.3 L Urine Color Yellow Urine Appearance Clear Urine pH 5.0 Ur Specific [place] 1.020 Urine Protein Negative Urine Glucose (UA) Negative Urine Ketones Negative Urine Blood 1+ H Urine Nitrite Negative Urine Bilirubin Negative Urine Urobilinogen Negative Ur Leukocyte Esterase Negative Urine RBC 4 Urine WBC 2 Ur Epithelial Cells Rare Hyaline Casts 3 Urine Mucus Rare RPR Titer 03/26/17 03/26/17 07:12 07:12 WBC RBC Hgb Hct MCV MCHC RDW Plt Count MPV INR 1.17 H Sodium Potassium Chloride Carbon Dioxide Anion Gap BUN Creatinine Creat Clearance w eGFR Random Glucose Calcium Total Bilirubin AST ALT Alkaline Phosphatase Total Protein Albumin Urine Color Urine Appearance Urine pH Ur Specific [place] Urine Protein Urine Glucose (UA) Urine Ketones Urine Blood Urine Nitrite Urine Bilirubin Urine Urobilinogen Ur Leukocyte Esterase Urine RBC Urine WBC Ur Epithelial Cells Hyaline Casts Urine Mucus RPR Titer Nonreactive labs noted Assessment: 03/28/17 15:02 Withdrawal sx. Plan: Continue detox
[2017-03-28] MEDS: chlordiazePOXIDE HCL 10 MG CAPSULE PO SCH ×2 (17:12→22:24)
[2017-03-28] MEDS: THIAMINE HCL 100 MG TABLET (FP) PO SCH (22:24)
[2017-03-28] MEDS: QUEtiapine FUMARATE 50 MG TABLET PO SCH (22:24)
[2017-03-28] MEDS: diphenhydrAMINE HCL 50 MG CAPSULE PO PRN (22:25)
[2017-03-28 22:31] LABS: URINE APPEARANCE CLEAR; URINE BILIRUBIN NEGATIVE (NEGATIVE); URINE BLOOD NEGATIVE (NEGATIVE); URINE COLOR LTYELLOW; URINE GLUCOSE (UA) NEGATIVE (NEGATIVE); URINE KETONE NEGATIVE (NEGATIVE); URINE LEUK ESTERASE NEGATIVE (NEGATIVE); URINE NITRITE NEGATIVE (NEGATIVE); URINE PROTEIN NEGATIVE (NEGATIVE); URINE UROBILINOGEN NEGATIVE E.U./dl (0.2-1.0)
[2017-03-29] MEDS: GABAPENTIN 300 MG CAPSULE (FP) PO SCH (05:19)
[2017-03-29] MEDS: chlordiazePOXIDE HCL 10 MG CAPSULE PO SCH ×2 (05:21→10:03)
[2017-03-29] MEDS ORDERED: METHADONE HCL 10 MG TABLET (FOR DETOX USE ONLY) PO SCH (10:00)
[2017-03-29] MEDS: NAPROXEN 500 MG TABLET (FP) PO SCH (10:02)
[2017-03-29] MEDS: ASPIRIN 81 MG CHEWABLE TABLETS PO SCH (10:02)
[2017-03-29] MEDS: NICOTINE 21 MG/24 HOURS TOPICAL PATCH TD SCH (10:03)
[2017-03-29] MEDS: PRENATAL VITAMINS W/ FOLIC ACID TABLET (FP) PO SCH (10:03)
--- NOTE | 2017-03-29 12:11 | PN ---
[facility] Progress Note (SOAP) Subjective: Pt. appears drowsy as a result of taking seroquel & gabapentin last night. Objective: 03/29/17 12:10 Vital Signs - 8 hr 03/29/17 03/29/17 06:30 09:19 Temperature 97.2 F L 97.2 F L Pulse Rate 93 H 83 Respiratory 18 18 Rate Blood Pressure 113/74 129/70 Laboratory Last Values WBC 7.8 K/mm3 (4.0-10.0) 03/26/17 07:12 RBC 4.35 M/mm3 (4.00-5.60) 03/26/17 07:12 Hgb 13.2 GM/dL (11.7-16.9) 03/26/17 07:12 Hct 40.1 % (35.4-49) 03/26/17 07:12 MCV 92.2 fl (80-96) 03/26/17 07:12 MCHC 33.0 g/dl (32.0-35.9) 03/26/17 07:12 RDW 14.3 % (11.9-15.9) 03/26/17 07:12 Plt Count 279 K/MM3 (134-434) 03/26/17 07:12 MPV 9.4 fl (7.5-11.1) 03/26/17 07:12 INR 1.17 (0.82-1.09) H 03/26/17 07:12 Sodium 143 mmol/L (136-145) 03/26/17 07:12 Potassium 4.0 mmol/L (3.5-5.1) 03/26/17 07:12 Chloride 103 mmol/L (98-107) 03/26/17 07:12 Carbon Dioxide 29 mmol/L (21-32) 03/26/17 07:12 Anion Gap 11 (8-16) 03/26/17 07:12 BUN 9 mg/dL (7-18) D 03/26/17 07:12 Creatinine 0.9 mg/dL (0.7-1.3) 03/26/17 07:12 Creat Clearance w eGFR > 60 (>60) 03/26/17 07:12 Random Glucose 110 mg/dL (74-106) H 03/26/17 07:12 Calcium 8.6 mg/dL (8.5-10.1) 03/26/17 07:12 Total Bilirubin 0.8 mg/dL (0.2-1.0) 03/26/17 07:12 AST 17 U/L (15-37) D 03/26/17 07:12 ALT 24 U/L (12-78) D 03/26/17 07:12 Alkaline Phosphatase 74 U/L (45-117) 03/26/17 07:12 Total Protein 6.2 g/dl (6.4-8.2) L 03/26/17 07:12 Albumin 3.3 g/dl (3.4-5.0) L 03/26/17 07:12 Urine Color [place] 03/28/17 22:00 Urine Appearance Clear 03/28/17 22:00 Urine pH 7.0 (5.0-8.0) D 03/28/17 22:00 Ur Specific [place] 1.015 (1.005-1.025) 03/28/17 22:00 Urine Protein Negative (NEGATIVE) 03/28/17 22:00 Urine Glucose (UA) Negative (NEGATIVE) 03/28/17 22:00 Urine Ketones Negative (NEGATIVE) 03/28/17 22:00 Urine Blood Negative (NEGATIVE) 03/28/17 22:00 Urine Nitrite Negative (NEGATIVE) 03/28/17 22:00 Urine Bilirubin Negative (NEGATIVE) 03/28/17 22:00 Urine Urobilinogen Negative E.U./dl (0.2-1.0) 03/28/17 22:00 Ur Leukocyte Esterase Negative (NEGATIVE) 03/28/17 22:00 Urine RBC 4 /hpf (0-3) 03/25/17 18:01 Urine WBC 2 /hpf (3-5) 03/25/17 18:01 Ur Epithelial Cells Rare /hpf (FEW) 03/25/17 18:01 Hyaline Casts 3 /lpf 03/25/17 18:01 Urine Mucus Rare 03/25/17 18:01 RPR Titer Nonreactive (NONREACTIVE) 03/26/17 07:12 labs noted Assessment: 03/29/17 12:10 Withdrawal sx. Plan: Continue detox
[2017-03-29 13:19] VITALS: BP 111/68; PULSE 79; TEMP 97.5
--- NOTE | 2017-03-29 20:23 | DS ---
[facility] Detox Discharge Summary Admission Date: 03/25/17 Discharge Date: 03/29/17 - History Present History: Alcohol Dependence, Cocaine Dependence, Opioid Dependence Additional Comments: PATIENT INSISTS TO LEAVE THE UNIT REFUSES TO WAIT FACE TO FACE WITH THE PROVIDER REFUSES E PRESCRIPTION Pertinent Past History: HYPERTENSION ASTHMA NICOTINE GERD - Physical Exam Results Vital Signs: Vital Signs Temperature 97.5 F L 03/29/17 13:18 Pulse Rate 79 03/29/17 13:18 Respiratory Rate 20 03/29/17 13:18 Blood Pressure 111/68 03/29/17 13:18 O2 Sat by Pulse Oximetry (%) Pertinent Admission Physical Exam Findings: WITHDRAWAL SX Laboratory Last Values WBC 7.8 K/mm3 (4.0-10.0) 03/26/17 07:12 RBC 4.35 M/mm3 (4.00-5.60) 03/26/17 07:12 Hgb 13.2 GM/dL (11.7-16.9) 03/26/17 07:12 Hct 40.1 % (35.4-49) 03/26/17 07:12 MCV 92.2 fl (80-96) 03/26/17 07:12 MCHC 33.0 g/dl (32.0-35.9) 03/26/17 07:12 RDW 14.3 % (11.9-15.9) 03/26/17 07:12 Plt Count 279 K/MM3 (134-434) 03/26/17 07:12 MPV 9.4 fl (7.5-11.1) 03/26/17 07:12 INR 1.17 (0.82-1.09) H 03/26/17 07:12 Sodium 143 mmol/L (136-145) 03/26/17 07:12 Potassium 4.0 mmol/L (3.5-5.1) 03/26/17 07:12 Chloride 103 mmol/L (98-107) 03/26/17 07:12 Carbon Dioxide 29 mmol/L (21-32) 03/26/17 07:12 Anion Gap 11 (8-16) 03/26/17 07:12 BUN 9 mg/dL (7-18) D 03/26/17 07:12 Creatinine 0.9 mg/dL (0.7-1.3) 03/26/17 07:12 Creat Clearance w eGFR > 60 (>60) 03/26/17 07:12 Random Glucose 110 mg/dL (74-106) H 03/26/17 07:12 Calcium 8.6 mg/dL (8.5-10.1) 03/26/17 07:12 Total Bilirubin 0.8 mg/dL (0.2-1.0) 03/26/17 07:12 AST 17 U/L (15-37) D 03/26/17 07:12 ALT 24 U/L (12-78) D 03/26/17 07:12 Alkaline Phosphatase 74 U/L (45-117) 03/26/17 07:12 Total Protein 6.2 g/dl (6.4-8.2) L 03/26/17 07:12 Albumin 3.3 g/dl (3.4-5.0) L 03/26/17 07:12 Urine Color Ltyellow 03/28/17 22:00 Urine Appearance Clear 03/28/17 22:00 Urine pH 7.0 (5.0-8.0) D 03/28/17 22:00 Ur Specific [place] 1.015 (1.005-1.025) 03/28/17 22:00 Urine Protein Negative (NEGATIVE) 03/28/17 22:00 Urine Glucose (UA) Negative (NEGATIVE) 03/28/17 22:00 Urine Ketones Negative (NEGATIVE) 03/28/17 22:00 Urine Blood Negative (NEGATIVE) 03/28/17 22:00 Urine Nitrite Negative (NEGATIVE) 03/28/17 22:00 Urine Bilirubin Negative (NEGATIVE) 03/28/17 22:00 Urine Urobilinogen Negative E.U./dl (0.2-1.0) 03/28/17 22:00 Ur Leukocyte Esterase Negative (NEGATIVE) 03/28/17 22:00 Urine RBC 4 /hpf (0-3) 03/25/17 18:01 Urine WBC 2 /hpf (3-5) 03/25/17 18:01 Ur Epithelial Cells Rare /hpf (FEW) 03/25/17 18:01 Hyaline Casts 3 /lpf 03/25/17 18:01 Urine Mucus Rare 03/25/17 18:01 RPR Titer Nonreactive (NONREACTIVE) 03/26/17 07:12 LAB NOTED - Treatment Hospital Course: Detox Protocol Followed, Responded well - Medication Discharge Medications: Ambulatory Orders Albuterol Sulfate Inhaler - [Ventolin HFA Inhaler -] 2 inh IH Q4H PRN #0 inh 12/10 Aspirin [ASA -] 81 mg PO DAILY 11/07/16 Gabapentin [Neurontin -] 300 mg PO Q8H 11/07/16 Naproxen [Naprosyn -] 500 mg PO BID 11/07/16 Quetiapine Fumarate [Seroquel -] 100 mg PO HS 03/25/17 Quetiapine Fumarate [Seroquel -] 50 mg PO HS #30 tablet 03/26/17 - Diagnosis (1) Opioid dependence with withdrawal Status: Acute (2) Alcohol dependence with withdrawal, unspecified Status: Acute Qualifiers: Complication of substance-induced condition: uncomplicated Qualified Code(s): F10.230 - Alcohol dependence with withdrawal, uncomplicated (3) Asthma Status: Chronic (4) Essential hypertension Status: Chronic - AMA Did Patient Leave Against Medical Advice: Yes
[2017-03-30] MEDS ORDERED: METHADONE HCL 5 MG TABLET (FOR DETOX USE ONLY) PO SCH (06:00)
== END 2017-03-29 17:17 | disposition left against medical advice (07) | DRG 770 ==
LOC: YASAS 10:16 → Y3N 12:28
PROVIDERS: ADMIT Internal Medicine; ATTEND Internal Medicine
PROC: HZ2ZZZZ Detoxification Services for Substance Abuse Treatment (ICD-10-PCS; principal; 2017-03-29)
DX: F11.23 Opioid dependence with withdrawal (principal); F10.230 Alcohol dependence with withdrawal, uncomplicated; F14.20 Cocaine dependence, uncomplicated; F17.210 Nicotine dependence, cigarettes, uncomplicated; F15.10 Other stimulant abuse, uncomplicated; G47.00 Insomnia, unspecified; B18.2 Chronic viral hepatitis C; I10 Essential (primary) hypertension; I49.9 Cardiac arrhythmia, unspecified; M48.06 Spinal stenosis, lumbar region
CPT/HCPCS: 36415; 80053; 81003; 81015; 85027; 85610; 86593; 93005; 93010

== ENCOUNTER 2017-05-26 11:55 | Inpatient (IN) | payer OTHER ==
[2017-05-26 12:27] VITALS: BMI 24.1
--- NOTE | 2017-05-26 13:49 | HP ---
COWS - Scale Resting Pulse: 1= [place] 81-100 Sweatin= Chills/Flushing Restless Observation: 1= Difficult to Sit Still Pupil Size: 0= Normal to Room Light Bone or Joint Aches: 1= Mild Discomfort Runny Nose/ Eye Tearin= Nasal Congestion GI Upset > 30mins: 1= Stomach Cramp Tremor Observation: 2= Slight Tremor Visible Yawning Observation: 1= 1-2x During Session Anxiety or Irritability: 1=Feels Anxious/Irritable Goose Flesh Skin: 0=Smooth Skin COWS Score: 10 CIWA Score - CIWA Score Nausea/Vomitin-Mild Nausea/No Vomiting Muscle Tremors: 4-Moderate,w/Arms Extend Anxiety: 4-Mod. Anxious/Guarded Agitation: 1-Slight > Activity Paroxysmal Sweats: No Perspiration Orientation: 0-Oriented Tacttile Disturbances: 1-Very Mild Itch/Numbness Auditory Disturbances: 1-Very Mild Visual Disturbances: 1-Very Mild Sensitivity Headache: 1-Very Mild CIWA-Ar Total Score: 14 Admission ROS BHS - HPI Chief Complaint: I keep going back to the wrong place, I keep using and I really want to stop Allergies/Adverse Reactions: Allergies Allergy/AdvReac Type Severity Reaction Status Date / Time No Known Allergies Allergy Verified 05/26/17 14:07 History of Present Illness: 61 yo gentleman here for detox from alcohol - history of previous detox, history of seizure. On suboxone program, showed his remaining suboxone prescription with him. Exam Limitations: Clinical Condition - Ebola screening Have you traveled outside of the country in the last 21 days: No Have you had contact with anyone from an Ebola affected area: No Have you been sick,other than usual withdrawal symptoms: No Do you have a fever: No - Review of Systems Constitutional: Loss of Appetite, Malaise, Changes in sleep EENT: reports: No Symptoms Reported Respiratory: reports: No Symptoms reported Cardiac: reports: No Symptoms Reported GI: reports: Poor Appetite : reports: Frequency Musculoskeletal: reports: Back Pain, Joint Swelling, Muscle Pain Integumentary: reports: No Symptoms Reported Neuro: reports: Headache Endocrine: reports: No Symptoms Reported Hematology: reports: No Symptoms Reported Psychiatric: reports: Judgement Intact, Mood/Affect Appropiate, Anxious Other Systems: Reviewed and Negative Patient History - Patient Medical History Hx Anemia: No Hx Asthma: Yes (Uses Albuterol Inhaler.) Hx Chronic Obstructive Pulmonary Disease (COPD): No Hx Cancer: No Hx Cardiac Disorders: Yes (Arrythmia (Unsure which type).) Hx Congestive Heart Failure: No Hx Hypertension: No Hx Hypercholesterolemia: No Hx Pacemaker: No HX Cerebrovascular Accident: No Hx Seizures: Yes (years ago ) Hx Dementia: No Hx Diabetes: No Hx Gastrointestinal Disorders: No Hx Liver Disease: No Hx Genitourinary Disorders: No Hx Sexually Transmitted Disorders: No Hx Renal Disease (ESRD): No Hx Thyroid Disease: No Hx Human Immunodeficiency Virus (HIV): No Hx Hepatitis C: Yes (not treatment needed - viral load negative) Hx Depression: Yes (On med.) Hx Suicide Attempt: No Hx Bipolar Disorder: No Hx Schizophrenia: No Other Medical History: spinal stenosis - Patient Surgical History Past Surgical History: Yes Hx Neurologic Surgery: No Hx Cataract Extraction: No Hx Cardiac Surgery: No Hx Lung Surgery: No Hx Breast Surgery: No Hx Breast Biopsy: No Hx Abdominal Surgery: Yes (Incisional hernia repair in 2010.) Hx Appendectomy: No Hx Cholecystectomy: No Hx Genitourinary Surgery: No Hx Section: No Hx Orthopedic Surgery: No Other Surgical History: Chest sx in 2010 (Unsure of reason). Anesthesia Reaction: No - PPD History Previous Implant?: Yes Documented Results: Negative w/proof Date: 03/27/17 Results: 0 mm PPD to be Administered?: No - Reproductive History Patient is a Female of Child Bearing Age (11 -55 yrs old): No (male) - Smoking Cessation Smoking history: Current every day smoker Have you smoked in the past 12 months: Yes Aproximately how many cigarettes per day: 20 Cigars Per Day: 0 Hx Chewing Tobacco Use: No Initiated information on smoking cessation: Yes 'Breaking Loose' booklet given: 05/26/17 (give on floor) - Substance & Tx. History Hx Alcohol Use: Yes Hx Substance Use: Yes Substance Use Type: Alcohol, Cocaine Hx Substance Use Treatment: Yes (detox, rehab, suboxone) - Substances Abused Alcohol Route: Oral Frequency: Daily Amount used: three six packs of 24 oz beers Age of first use: 31 Date of Last Use: 05/25/17 Cocaine Frequency: Daily Amount used: 2 gm Age of first use: 26 Date of Last Use: 07/28/17 Family Disease History - Family Disease History Family Disease History: [place]: Mother (, ), Other: Father (no contact), Mother, Brother (three living, healthy), Sister (two, living, healthy), Daughter (two, living, healthy) Admission Physical Exam [facility] - Vital Signs Vital Signs: Vital Signs - 24 hr 05/26/17 12:19 Temperature 97.1 F L Pulse Rate 57 L Respiratory 18 Rate Blood Pressure 130/80 - Physical General Appearance: Yes: Nourished, Appropriately Dressed, Mild Distress, Anxious HEENTM: Yes: Hearing grossly Normal, Normocephalic, Normal Voice Respiratory: Yes: Normal Breath Sounds, No Respiratory Distress Neck: Yes: No masses,lesions,Nodules, Supple Breast: Yes: Breast Exam Deferred Cardiology: Yes: Regular Rhythm, Regular Rate Abdominal: Yes: Soft Genitourinary: Yes: Frequency Back: Yes: Decreased Range of Motion, Other (wearing back brace) Musculoskeletal: Yes: Gait Steady, Back pain Extremities: Yes: Normal Inspection Neurological: Yes: Fully Oriented, Alert, Normal Mood/Affect, Normal Response Integumentary: Yes: Normal Color, Warm Lymphatic: Yes: Within Normal Limits - Diagnostic (1) Alcohol dependence with uncomplicated withdrawal Current Visit: Yes Status: Chronic (2) Cocaine dependence, uncomplicated Current Visit: Yes Status: Chronic (3) Nicotine dependence Current Visit: Yes Status: Chronic Qualifiers: Nicotine product type: cigarettes Substance use status: uncomplicated Qualified Code(s): F17.210 - Nicotine dependence, cigarettes, uncomplicated (4) Low back pain Current Visit: Yes Status: Chronic Qualifiers: Chronicity: chronic Back pain laterality: unspecified (5) Spinal stenosis Current Visit: Yes Status: Chronic Qualifiers: Spinal region: lumbar Qualified Code(s): M48.06 - Spinal stenosis, lumbar region Cleared for Admission [facility] - Detox or Rehab [facility] Level of Care: Medically Managed Detox Regimen/Protocol: Librium [facility] Breath Alcohol Content Breath Alcohol Content: 0 Urine Drug Screen - Results Drug Screen Negative: No Urine Drug Screen Results: TYRON-Cocaine, OPI-Opiates
[2017-05-26] MEDS ORDERED: chlordiazePOXIDE HCL 25 MG CAPSULE PO PRN (14:00)
[2017-05-26] MEDS ORDERED: hydrOXYzine PAMOATE 50 MG CAPSULE (FP) PO PRN (14:00)
[2017-05-26] MEDS ORDERED: MENTHOL/PHENOL 1 EACH UD MM PRN (14:00)
[2017-05-26] MEDS ORDERED: chlordiazePOXIDE HCL 25 MG CAPSULE PO ONE (14:00)
[2017-05-26] MEDS ORDERED: LOPERAMIDE HCL 2 MG CAPSULE PO PRN (14:00)
[2017-05-26] MEDS ORDERED: guaiFENesin/D-METHORPHAN HB 10 ML UNIT-DOSE CUPS PO PRN (14:00)
[2017-05-26] MEDS ORDERED: ACETAMINOPHEN 325 MG TABLET (FP) PO PRN (14:00)
[2017-05-26] MEDS ORDERED: MAGNESIUM CITRATE 300 ML BOTTLE PO PRN (14:00)
[2017-05-26] MEDS ORDERED: P-EPHED 60MG/TRIPROLIDI 2.5MG TABLET PO PRN (14:00)
[2017-05-26] MEDS ORDERED: MAG HYDROX/AL HYDROX/SIMETH 30 ML UNIT-DOSE CUP PO PRN (14:00)
[2017-05-26] MEDS ORDERED: ALBUTEROL SO4 6.7 GM HFA INHALER IH PRN (14:01)
[2017-05-26] MEDS: NICOTINE 21 MG/24 HOURS TOPICAL PATCH TD SCH (15:25)
[2017-05-26] MEDS: GABAPENTIN 300 MG CAPSULE (FP) PO SCH ×2 (15:26→22:30)
[2017-05-26] MEDS: LIDOCAINE 5% TOPICAL PATCH TP SCH (15:42)
[2017-05-26 17:21] LABS: URINE APPEARANCE CLEAR; URINE BILIRUBIN NEGATIVE (NEGATIVE); URINE BLOOD 1+ (NEGATIVE); URINE COLOR DKYELLOW; URINE GLUCOSE (UA) NEGATIVE (NEGATIVE); URINE KETONE NEGATIVE (NEGATIVE); URINE LEUK ESTERASE NEGATIVE (NEGATIVE); URINE NITRITE NEGATIVE (NEGATIVE); URINE PROTEIN NEGATIVE (NEGATIVE); URINE UROBILINOGEN 4.0 E.U/dl mg/dL (0.2-1.0)
[2017-05-26 17:28] LABS: CALCIUM OXALATE CRYSTALS FEW /hpf (NONE SEEN); URINE HYALINE CAST 6 /lpf; URINE MUCUS MODERATE; URINE RBC 2 /hpf (0-3); URINE WBC 7 /hpf (3-5)
[2017-05-26] MEDS: chlordiazePOXIDE HCL 25 MG CAPSULE PO SCH ×2 (18:11→22:30)
[2017-05-26] MEDS ORDERED: diphenhydrAMINE HCL 50 MG CAPSULE PO PRN (22:00)
[2017-05-26] MEDS: THIAMINE HCL 100 MG TABLET (FP) PO SCH (22:29)
[2017-05-26] MEDS: NAPROXEN 500 MG TABLET (FP) PO SCH (22:30)
[2017-05-26] MEDS: LIDOCAINE PATCH REMOVAL MC SCH (22:30)
[2017-05-26] MEDS: TOLNAFTATE 1% CREAM 15 GM TUBE TP SCH (22:32)
[2017-05-27] MEDS: GABAPENTIN 300 MG CAPSULE (FP) PO SCH ×3 (05:22→22:30)
[2017-05-27] MEDS: chlordiazePOXIDE HCL 25 MG CAPSULE PO SCH ×4 (05:22→22:30)
[2017-05-27] MEDS: LIDOCAINE 5% TOPICAL PATCH TP SCH (09:34)
[2017-05-27] MEDS: BUPRENORPHINE/NALOXONE 8 MG/2 MG FILM PACKET SL SCH ×2 (09:54→22:30)
[2017-05-27] MEDS: PRENATAL VITAMINS W/ FOLIC ACID TABLET (FP) PO SCH (10:26)
[2017-05-27] MEDS: NAPROXEN 500 MG TABLET (FP) PO SCH ×2 (10:27→22:30)
[2017-05-27] MEDS: TOLNAFTATE 1% CREAM 15 GM TUBE TP SCH ×2 (10:27→22:34)
[2017-05-27] MEDS: NICOTINE 21 MG/24 HOURS TOPICAL PATCH TD SCH (10:28)
[2017-05-27 10:29] LABS: MCH 30.3 pg (25.7-33.7); MCHC 32.7 g/dl (32.0-35.9); MEAN CELL VOLUME 92.5 fl (80-96); MEAN PLT VOLUME 10.2 fl (7.5-11.1); PLATELET COUNT 277 K/MM3 (134-434); RDW 14.4 % (11.9-15.9); WHITE BLOOD COUNT 7.5 K/mm3 (4.0-10.0)
[2017-05-27 10:42] LABS: ALBUMIN 3.7 g/dl (3.4-5.0); ALK PHOS 79 U/L (45-117); ANION GAP 5 (8-16); BILIRUBIN,TOTAL 0.4 mg/dL (0.2-1.0); CALCIUM 8.8 mg/dL (8.5-10.1); CO2 30 mmol/L (21-32); CREATININE 1.1 mg/dL (0.7-1.3); GLUCOSE,RANDOM 84 mg/dL (74-106); SGOT/AST 11 U/L (15-37); SGPT/ALT 13 U/L (12-78); TOT PROT 6.7 g/dl (6.4-8.2)
[2017-05-27] MEDS: ASPIRIN COATED 81 MG TABLET.EC PO SCH (11:51)
--- NOTE | 2017-05-27 14:38 | PN ---
S CIWA - CIWA Score Nausea/Vomitin Muscle Tremors: 4-Moderate,w/Arms Extend Anxiety: 4-Mod. Anxious/Guarded Agitation: 4-Moderately Restless Paroxysmal Sweats: 3 Orientation: 0-Oriented Tacttile Disturbances: 1-Very Mild Itch/Numbness Auditory Disturbances: 0-None Visual Disturbances: 0-None Headache: 1-Very Mild CIWA-Ar Total Score: 19 BHS Progress Note (SOAP) Subjective: Sweating, chills, nausea, interrupted sleep Objective: 05/27/17 14:34 Last Vital Signs Temp Pulse Resp BP Pulse Ox 98.0 F 63 18 117/75 05/27/17 13:42 05/27/17 13:42 05/27/17 13:42 05/27/17 13:42 Laboratory Tests 05/26/17 05/27/17 05/27/17 16:30 07:45 07:45 WBC 7.5 RBC 4.44 Hgb 13.4 Hct 41.1 MCV 92.5 MCH 30.3 MCHC 32.7 RDW 14.4 Plt Count 277 MPV 10.2 Sodium 141 Potassium 3.9 Chloride 106 Carbon Dioxide 30 Anion Gap 5 L BUN 11 D Creatinine 1.1 D Creat Clearance w eGFR > 60 Random Glucose 84 D Calcium 8.8 Total Bilirubin 0.4 D AST 11 L D ALT 13 D Alkaline Phosphatase 79 Total Protein 6.7 Albumin 3.7 Urine Color Dkyellow Urine Appearance Clear Urine pH 5.0 D Ur Specific [place] 1.025 Urine Protein Negative Urine Glucose (UA) Negative Urine Ketones Negative Urine Blood 1+ H Urine Nitrite Negative Urine Bilirubin Negative Urine Urobilinogen 4.0 e.u/dl Ur Leukocyte Esterase Negative Urine RBC 2 Urine WBC 7 Calcium Oxalate Crystal Few Hyaline Casts 6 Urine Mucus Moderate RPR Titer 05/27/17 07:45 WBC RBC Hgb Hct MCV MCH MCHC RDW Plt Count MPV Sodium Potassium Chloride Carbon Dioxide Anion Gap BUN Creatinine Creat Clearance w eGFR Random Glucose Calcium Total Bilirubin AST ALT Alkaline Phosphatase Total Protein Albumin Urine Color Urine Appearance Urine pH Ur Specific [place] Urine Protein Urine Glucose (UA) Urine Ketones Urine Blood Urine Nitrite Urine Bilirubin Urine Urobilinogen Ur Leukocyte Esterase Urine RBC Urine WBC Calcium Oxalate Crystal Hyaline Casts Urine Mucus RPR Titer Nonreactive Labs noted: UA noted with microscopic hematuria Assessment: 05/27/17 14:37 Withdrawal symptoms Noted with microscopic hematuria Plan: Continue detox Microscopic hematuria: encouraged to drink lots of water, repeat UA
[2017-05-27] MEDS: MAGNESIUM HYDROX 2400MG/30ML ORAL SUSPENSION 30 ML CUP PO PRN (17:19)
[2017-05-27 19:25] LABS: URINE APPEARANCE CLEAR; URINE BILIRUBIN NEGATIVE (NEGATIVE); URINE BLOOD NEGATIVE (NEGATIVE); URINE COLOR YELLOW; URINE GLUCOSE (UA) NEGATIVE (NEGATIVE); URINE KETONE NEGATIVE (NEGATIVE); URINE LEUK ESTERASE NEGATIVE (NEGATIVE); URINE NITRITE NEGATIVE (NEGATIVE); URINE PROTEIN NEGATIVE (NEGATIVE); URINE UROBILINOGEN 4.0 E.U/dl mg/dL (0.2-1.0)
[2017-05-27] MEDS: THIAMINE HCL 100 MG TABLET (FP) PO SCH (22:30)
[2017-05-27] MEDS: LIDOCAINE PATCH REMOVAL MC SCH (22:31)
[2017-05-28] MEDS: GABAPENTIN 300 MG CAPSULE (FP) PO SCH ×3 (05:13→22:09)
[2017-05-28] MEDS: chlordiazePOXIDE HCL 25 MG CAPSULE PO SCH ×2 (05:13→10:35)
[2017-05-28] MEDS: MAGNESIUM HYDROX 2400MG/30ML ORAL SUSPENSION 30 ML CUP PO PRN (05:15)
--- NOTE | 2017-05-28 09:59 | EKG ---
Test Reason : Blood Pressure : / mmHG Vent. Rate : 055 BPM Atrial Rate : 055 BPM P-R Int : 158 ms QRS Dur : 108 ms QT Int : 448 ms P-R-T Axes : 077 -38 -36 degrees QTc Int : 428 ms SINUS BRADYCARDIA LEFT AXIS DEVIATION SEPTAL INFARCT (CITED ON OR BEFORE 07-NOV-2016) ABNORMAL ECG WHEN COMPARED WITH ECG OF 25-MAR-2017 13:18, NO SIGNIFICANT CHANGE WAS FOUND Confirmed by PRADIP KABA, UMM ([id number]) on 05/28/2017 9:58:49 AM Referred By: Confirmed By:UMM MOSELEY MD
[2017-05-28] MEDS: NAPROXEN 500 MG TABLET (FP) PO SCH ×2 (10:34→22:09)
[2017-05-28] MEDS: BUPRENORPHINE/NALOXONE 8 MG/2 MG FILM PACKET SL SCH ×2 (10:34→22:09)
[2017-05-28] MEDS: ASPIRIN COATED 81 MG TABLET.EC PO SCH (10:34)
[2017-05-28] MEDS: LIDOCAINE 5% TOPICAL PATCH TP SCH (10:36)
[2017-05-28] MEDS: PRENATAL VITAMINS W/ FOLIC ACID TABLET (FP) PO SCH (10:37)
[2017-05-28] MEDS: TOLNAFTATE 1% CREAM 15 GM TUBE TP SCH ×2 (10:37→22:10)
[2017-05-28] MEDS: NICOTINE 21 MG/24 HOURS TOPICAL PATCH TD SCH (10:37)
--- NOTE | 2017-05-28 11:39 | CONSULT ---
[facility] Psychiatric Consult - Data Date of interview: 05/28/17 Admission source: [facility] Identifying data: Another admission to [facility] for this 61 y/o AA male seeking detox treatment on for heroin,cocaine and alcohol dependence.Patient is ,a father of nine (questionable account),homeless, unemployed,disabled and supported on SSI benefits. Substance Abuse History: This section of [facility] report is discussed with the patient at this interview.Mr Gay confirms the data. - Smoking Cessation. Smoking history: Current every day smoker. Have you smoked in the past 12 months: Yes. Aproximately how many cigarettes per day: 20. Cigars Per Day: 0. Hx Chewing Tobacco Use: No. Initiated information on smoking cessation: Yes. 'Breaking Loose' booklet given: 05/26/17 (give on floor). - Substance & Tx. History. Hx Alcohol Use: Yes. Hx Substance Use: Yes. Substance Use Type: Alcohol, Cocaine. Hx Substance Use Treatment: Yes (detox, rehab, suboxone). - Substances Abused. Alcohol. Route: Oral. Frequency: Daily. Amount used: three six packs of 24 oz beers. Age of first use: 31. Date of Last Use: . Cocaine. Frequency: Daily. Amount used: 2 gm. Age of first use: 26. Date of Last Use: 05/25/17 Medical History: No change in medical profile.Hepatitis C,bronchial asthma, hypertension,GERD,low back pain,past incisional herniorraphy and spinal stenosis. Psychiatric History: Patient reports a remote history of psychiatric hospitalization at [facility].Diagnosed with Bipolar Disorder.No OPD care.Mr Gay continues to report insomnia and he is willing to take seroquel at bedtime.No history of suicide attempts. Physical/Sexual Abuse/Trauma History: Patient denies. Additional Comment: Urine Drug Screen Results: TYRON-Cocaine, OPI-Opiates.Noted. Mental Status Exam - Mental Status Exam Alert and Oriented to: Time, Place, Person Cognitive Function: Good Patient Appearance: Well Groomed Mood: Hopeful, Euthymic Affect: Appropriate, Normal Range Patient Behavior: Fatigued, Appropriate, Cooperative Speech Pattern: Clear Voice Loudness: Normal Thought Process: Goal Oriented Thought Disorder: Not Present Hallucinations: Denies Suicidal Ideation: Denies Homicidal Ideation: Denies Insight/Judgement: Poor Sleep: Poorly, Difficulty falling asleep Appetite: Good Muscle strength/Tone: Normal Gait/Station: Normal Psychiatric Findings - Problem List ([place] 1, 2,3) (1) Alcohol dependence with uncomplicated withdrawal Current Visit: Yes Status: Acute (2) Cocaine dependence, uncomplicated Current Visit: Yes Status: Acute (3) Nicotine dependence Current Visit: Yes Status: Acute Qualifiers: Nicotine product type: cigarettes Substance use status: uncomplicated Qualified Code(s): F17.210 - Nicotine dependence, cigarettes, uncomplicated (4) Substance induced mood disorder Current Visit: Yes Status: Acute (5) Low back pain Current Visit: Yes Status: Chronic Qualifiers: Chronicity: chronic Back pain laterality: unspecified (6) Spinal stenosis Current Visit: Yes Status: Chronic Qualifiers: Spinal region: lumbar Qualified Code(s): M48.06 - Spinal stenosis, lumbar region (7) Asthma Current Visit: Yes Status: Chronic (8) History of cardiac arrhythmia Current Visit: No Status: Chronic (9) Insomnia Current Visit: Yes Status: Chronic Qualifiers: Insomnia type: primary Qualified Code(s): F51.01 - Primary insomnia - Initial Treatment Plan Initial Treatment Plan: Psychoeducation provided in session.Detoxification in progress.Seroquel 50 mg po hs.Ordered.Side effects/benefits discussed with patient.He agrees with careplan.Observation.
[2017-05-28] MEDS ORDERED: SODIUM PHOSPHATE/NA BIPHOS 133 ML ENEMA PR ONE (14:22)
--- NOTE | 2017-05-28 14:27 | PN ---
[facility] CIWA - CIWA Score Nausea/Vomitin-No Nausea/No Vomiting Muscle Tremors: 3 Anxiety: 3 Agitation: 4-Moderately Restless Paroxysmal Sweats: 3 Orientation: 0-Oriented Tacttile Disturbances: 0-None Auditory Disturbances: 0-None Visual Disturbances: 0-None Headache: 0-None Present CIWA-Ar Total Score: 13 BHS Progress Note (SOAP) Subjective: Sweating,anxiety,tremors,restless,interrupted sleep. Objective: 05/28/17 14:26 Vital Signs - 8 hr 05/28/17 05/28/17 09:23 13:22 Temperature 98.4 F 97.6 F Pulse Rate 68 71 Respiratory 16 18 Rate Blood Pressure 117/78 125/76 Laboratory Tests 05/26/17 05/27/17 05/27/17 16:30 07:45 07:45 WBC 7.5 RBC 4.44 Hgb 13.4 Hct 41.1 MCV 92.5 MCH 30.3 MCHC 32.7 RDW 14.4 Plt Count 277 MPV 10.2 Sodium 141 Potassium 3.9 Chloride 106 Carbon Dioxide 30 Anion Gap 5 L BUN 11 D Creatinine 1.1 D Creat Clearance w eGFR > 60 Random Glucose 84 D Calcium 8.8 Total Bilirubin 0.4 D AST 11 L D ALT 13 D Alkaline Phosphatase 79 Total Protein 6.7 Albumin 3.7 Urine Color Dkyellow Urine Appearance Clear Urine pH 5.0 D Ur Specific [place] 1.025 Urine Protein Negative Urine Glucose (UA) Negative Urine Ketones Negative Urine Blood 1+ H Urine Nitrite Negative Urine Bilirubin Negative Urine Urobilinogen 4.0 e.u/dl Ur Leukocyte Esterase Negative Urine RBC 2 Urine WBC 7 Calcium Oxalate Crystal Few Hyaline Casts 6 Urine Mucus Moderate RPR Titer 05/27/17 05/27/17 07:45 19:16 WBC RBC Hgb Hct MCV MCH MCHC RDW Plt Count MPV Sodium Potassium Chloride Carbon Dioxide Anion Gap BUN Creatinine Creat Clearance w eGFR Random Glucose Calcium Total Bilirubin AST ALT Alkaline Phosphatase Total Protein Albumin Urine Color Yellow Urine Appearance Clear Urine pH 6.0 Ur Specific [place] 1.015 Urine Protein Negative Urine Glucose (UA) Negative Urine Ketones Negative Urine Blood Negative Urine Nitrite Negative Urine Bilirubin Negative Urine Urobilinogen 4.0 e.u/dl Ur Leukocyte Esterase Negative Urine RBC Urine WBC Calcium Oxalate Crystal Hyaline Casts Urine Mucus RPR Titer Nonreactive labs noted Assessment: 05/28/17 14:27 Withdrawal sx. Plan: Continue detox
[2017-05-28] MEDS: chlordiazePOXIDE 5 MG CAPSULE PO SCH ×2 (16:39→22:09)
[2017-05-28] MEDS ORDERED: QUEtiapine FUMARATE 50 MG TABLET PO SCH (22:00)
[2017-05-28] MEDS: THIAMINE HCL 100 MG TABLET (FP) PO SCH (22:09)
[2017-05-28] MEDS: LIDOCAINE PATCH REMOVAL MC SCH (22:28)
[2017-05-29] MEDS: chlordiazePOXIDE 5 MG CAPSULE PO SCH (05:40)
[2017-05-29] MEDS: GABAPENTIN 300 MG CAPSULE (FP) PO SCH (05:40)
--- NOTE | 2017-05-29 09:20 | PN ---
BHS Progress Note (SOAP) Subjective: Sweating,weak,restless Objective: 05/29/17 09:19 Vital Signs - 8 hr 05/29/17 05/29/17 03:30 06:12 Temperature 99.7 F H Pulse Rate 77 Respiratory 18 18 Rate Blood Pressure 105/67 Laboratory Last Values WBC 7.5 K/mm3 (4.0-10.0) 05/27/17 07:45 RBC 4.44 M/mm3 (4.00-5.60) 05/27/17 07:45 Hgb 13.4 GM/dL (11.7-16.9) 05/27/17 07:45 Hct 41.1 % (35.4-49) 05/27/17 07:45 MCV 92.5 fl (80-96) 05/27/17 07:45 MCH 30.3 pg (25.7-33.7) 05/27/17 07:45 MCHC 32.7 g/dl (32.0-35.9) 05/27/17 07:45 RDW 14.4 % (11.9-15.9) 05/27/17 07:45 Plt Count 277 K/MM3 (134-434) 05/27/17 07:45 MPV 10.2 fl (7.5-11.1) 05/27/17 07:45 Sodium 141 mmol/L (136-145) 05/27/17 07:45 Potassium 3.9 mmol/L (3.5-5.1) 05/27/17 07:45 Chloride 106 mmol/L (98-107) 05/27/17 07:45 Carbon Dioxide 30 mmol/L (21-32) 05/27/17 07:45 Anion Gap 5 (8-16) L 05/27/17 07:45 BUN 11 mg/dL (7-18) D 05/27/17 07:45 Creatinine 1.1 mg/dL (0.7-1.3) D 05/27/17 07:45 Creat Clearance w eGFR > 60 (>60) 05/27/17 07:45 Random Glucose 84 mg/dL (74-106) D 05/27/17 07:45 Calcium 8.8 mg/dL (8.5-10.1) 05/27/17 07:45 Total Bilirubin 0.4 mg/dL (0.2-1.0) D 05/27/17 07:45 AST 11 U/L (15-37) L D 05/27/17 07:45 ALT 13 U/L (12-78) D 05/27/17 07:45 Alkaline Phosphatase 79 U/L (45-117) 05/27/17 07:45 Total Protein 6.7 g/dl (6.4-8.2) 05/27/17 07:45 Albumin 3.7 g/dl (3.4-5.0) 05/27/17 07:45 Urine Color Yellow 05/27/17 19:16 Urine Appearance Clear 05/27/17 19:16 Urine pH 6.0 (5.0-8.0) 05/27/17 19:16 Ur Specific [place] 1.015 (1.005-1.025) 05/27/17 19:16 Urine Protein Negative (NEGATIVE) 05/27/17 19:16 Urine Glucose (UA) Negative (NEGATIVE) 05/27/17 19:16 Urine Ketones Negative (NEGATIVE) 05/27/17 19:16 Urine Blood Negative (NEGATIVE) 05/27/17 19:16 Urine Nitrite Negative (NEGATIVE) 05/27/17 19:16 Urine Bilirubin Negative (NEGATIVE) 05/27/17 19:16 Urine Urobilinogen 4.0 e.u/dl mg/dL (0.2-1.0) 05/27/17 19:16 Ur Leukocyte Esterase Negative (NEGATIVE) 05/27/17 19:16 Urine RBC 2 /hpf (0-3) 05/26/17 16:30 Urine WBC 7 /hpf (3-5) 05/26/17 16:30 Calcium Oxalate Crystal Few /hpf (NONE SEEN) 05/26/17 16:30 Hyaline Casts 6 /lpf 05/26/17 16:30 Urine Mucus Moderate 05/26/17 16:30 RPR Titer Nonreactive (NONREACTIVE) 05/27/17 07:45 labs noted Assessment: 05/29/17 09:20 Withdrawal sx. Plan: Continue detox
[2017-05-29] MEDS: NICOTINE 21 MG/24 HOURS TOPICAL PATCH TD SCH (10:25)
[2017-05-29] MEDS: BUPRENORPHINE/NALOXONE 8 MG/2 MG FILM PACKET SL SCH ×2 (10:25→22:05)
[2017-05-29] MEDS: ASPIRIN COATED 81 MG TABLET.EC PO SCH (10:25)
[2017-05-29] MEDS: PRENATAL VITAMINS W/ FOLIC ACID TABLET (FP) PO SCH (10:25)
[2017-05-29] MEDS: TOLNAFTATE 1% CREAM 15 GM TUBE TP SCH ×2 (10:25→22:05)
[2017-05-29] MEDS: NAPROXEN 500 MG TABLET (FP) PO SCH ×2 (10:25→22:05)
[2017-05-29] MEDS: LIDOCAINE 5% TOPICAL PATCH TP SCH (10:26)
[2017-05-29] MEDS: chlordiazePOXIDE HCL 10 MG CAPSULE PO SCH ×2 (16:40→22:05)
[2017-05-29] MEDS ORDERED: chlordiazePOXIDE HCL 10 MG CAPSULE PO SCH (17:00)
[2017-05-29] MEDS ORDERED: GABAPENTIN 100 MG CAPSULE (FP) PO SCH (22:00)
[2017-05-29 22:03] VITALS: BP 103/69; PULSE 76; TEMP 97.5
[2017-05-29] MEDS: THIAMINE HCL 100 MG TABLET (FP) PO SCH (22:05)
[2017-05-29] MEDS: LIDOCAINE PATCH REMOVAL MC SCH (22:05)
--- NOTE | 2017-05-30 01:22 | PN ---
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 Pt. was scheduled to be discharged at 8am but he requested to leave immediately because he wanted to go home. Pt. is alert and oriented, stable, ambulating with a steady gait, no signs of distress or withdrawal symptom noted. He denies SI/HI. He stated he has money to get a taxi home. Requested medication refills sent to the pharmacy. Last Vital Signs Temp Pulse Resp BP Pulse Ox 97.5 F L 76 18 103/69 05/29/17 22:02 05/29/17 22:02 05/30/17 00:23 05/29/17 22:02
--- NOTE | 2017-05-30 16:23 | DS ---
[facility] Detox Discharge Summary Admission Date: 05/26/17 Discharge Date: 05/30/17 - History Present History: Alcohol Dependence, Cocaine Dependence Additional Comments: PATIENT REFUSES REFERRAL TO REHAB. PATIENT ADVISED TO CONSIDER 12-STEP / AA OUTPATIENT PROGRAMS FOR FOLLOW-UP AFTER DISCHARGE FROM DETOX. PATIENT DISCHARGED IN STABLE MEDICAL CONDITION. Pertinent Past History: Asthma, History of Seizures, Insomnia, Hep C, Spinal Stenosis, History of Cardiac Arrythmia (uncertain which type). - Physical Exam Results Vital Signs: Vital Signs Temperature 97.5 F L 05/29/17 22:02 Pulse Rate 76 05/29/17 22:02 Respiratory Rate 18 05/30/17 00:23 Blood Pressure 103/69 05/29/17 22:02 O2 Sat by Pulse Oximetry (%) Pertinent Admission Physical Exam Findings: WITHDRAWAL SYMPTOMS. Laboratory Tests 05/26/17 05/27/17 05/27/17 16:30 07:45 07:45 WBC 7.5 RBC 4.44 Hgb 13.4 Hct 41.1 MCV 92.5 MCH 30.3 MCHC 32.7 RDW 14.4 Plt Count 277 MPV 10.2 Sodium 141 Potassium 3.9 Chloride 106 Carbon Dioxide 30 Anion Gap 5 L BUN 11 D Creatinine 1.1 D Creat Clearance w eGFR > 60 Random Glucose 84 D Calcium 8.8 Total Bilirubin 0.4 D AST 11 L D ALT 13 D Alkaline Phosphatase 79 Total Protein 6.7 Albumin 3.7 Urine Color Dkyellow Urine Appearance Clear Urine pH 5.0 D Ur Specific [place] 1.025 Urine Protein Negative Urine Glucose (UA) Negative Urine Ketones Negative Urine Blood 1+ H Urine Nitrite Negative Urine Bilirubin Negative Urine Urobilinogen 4.0 e.u/dl Ur Leukocyte Esterase Negative Urine RBC 2 Urine WBC 7 Calcium Oxalate Crystal Few Hyaline Casts 6 Urine Mucus Moderate RPR Titer 05/27/17 05/27/17 07:45 19:16 WBC RBC Hgb Hct MCV MCH MCHC RDW Plt Count MPV Sodium Potassium Chloride Carbon Dioxide Anion Gap BUN Creatinine Creat Clearance w eGFR Random Glucose Calcium Total Bilirubin AST ALT Alkaline Phosphatase Total Protein Albumin Urine Color Yellow Urine Appearance Clear Urine pH 6.0 Ur Specific [place] 1.015 Urine Protein Negative Urine Glucose (UA) Negative Urine Ketones Negative Urine Blood Negative Urine Nitrite Negative Urine Bilirubin Negative Urine Urobilinogen 4.0 e.u/dl Ur Leukocyte Esterase Negative Urine RBC Urine WBC Calcium Oxalate Crystal Hyaline Casts Urine Mucus RPR Titer Nonreactive LABS NOTED. - Treatment Hospital Course: Detox Protocol Followed, Detoxed Safely, Responded well, Discharged Condition Good Patient has Accepted a Rehab Referral to: PT. REFUSES AFTERCARE REFERRAL; ADVISED TO CONSIDER 12-STEP/AA PROGRAMS. - Medication Discharge Medications: Ambulatory Orders Gabapentin [Neurontin -] 300 mg PO Q8H 11/07/16 Quetiapine Fumarate [Seroquel -] 50 mg PO HS #30 tablet 05/28/17 Albuterol Sulfate Inhaler - [Ventolin HFA Inhaler -] 2 inh IH Q4H PRN #1 inh 12/15 Aspirin [ASA -] 81 mg PO DAILY #14 meq 05/30/17 Naproxen [Naprosyn -] 500 mg PO BID #28 mg 05/30/17 - Diagnosis (1) Alcohol dependence with uncomplicated withdrawal Status: Acute (2) Cocaine dependence, uncomplicated Status: Acute (3) Nicotine dependence Status: Chronic Qualifiers: Nicotine product type: cigarettes Substance use status: uncomplicated Qualified Code(s): F17.210 - Nicotine dependence, cigarettes, uncomplicated (4) Substance induced mood disorder Status: Acute (5) Asthma Status: Chronic (6) History of cardiac arrhythmia Status: Chronic (7) Insomnia Status: Chronic Qualifiers: Insomnia type: primary Qualified Code(s): F51.01 - Primary insomnia (8) Low back pain Status: Chronic Qualifiers: Chronicity: chronic Back pain laterality: unspecified Sciatica presence: unspecified whether sciatica present Qualified Code(s): M54.5 - Low back pain (9) Spinal stenosis Status: Chronic Qualifiers: Spinal region: lumbar Qualified Code(s): M48.06 - Spinal stenosis, lumbar region - AMA Did Patient Leave Against Medical Advice: No
== END 2017-05-30 01:33 | disposition home or self-care (01) | DRG 774 ==
LOC: YASAS 11:55 → Y3N 14:07
PROVIDERS: ADMIT Internal Medicine; ATTEND Internal Medicine
PROC: HZ2ZZZZ Detoxification Services for Substance Abuse Treatment (ICD-10-PCS; principal; 2017-05-26)
DX: F10.230 Alcohol dependence with withdrawal, uncomplicated (principal); F14.20 Cocaine dependence, uncomplicated; F17.210 Nicotine dependence, cigarettes, uncomplicated; F19.24 Other psychoactive substance dependence with psychoactive substance-induced mood disorder; J45.909 Unspecified asthma, uncomplicated; I49.9 Cardiac arrhythmia, unspecified; F51.01 Primary insomnia; M54.5 Low back pain; M48.06 Spinal stenosis, lumbar region; R31.29 Other microscopic hematuria
CPT/HCPCS: 36415; 80053; 81003; 81015; 85027; 86593; 93005; 93010

== ENCOUNTER 2017-08-06 08:32 | Inpatient (IN) | payer OTHER ==
[2017-08-06 10:38] VITALS: BMI 23.5
--- NOTE | 2017-08-06 12:55 | HP ---
COWS - Scale Resting Pulse: 0= [place] 80 or Below Sweatin=Flushed/Facial Moisture Restless Observation: 1= Difficult to Sit Still Pupil Size: 0= Normal to Room Light Bone or Joint Aches: 2= Severe Diffuse Aches Runny Nose/ Eye Tearin= Runny Nose/Eyes GI Upset > 30mins: 2= Nausea/Diarrhea Tremor Observation: 2= Slight Tremor Visible Yawning Observation: 2= >3x During Session Anxiety or Irritability: 2=Irritable/Anxious Goose Flesh Skin: 3=Piloerection COWS Score: 18 CIWA Score - CIWA Score Nausea/Vomitin-Mild Nausea/No Vomiting Muscle Tremors: 4-Moderate,w/Arms Extend Anxiety: 3 Agitation: 4-Moderately Restless Paroxysmal Sweats: 3 Orientation: 0-Oriented Tacttile Disturbances: 0-None Auditory Disturbances: 0-None Visual Disturbances: 0-None Headache: 0-None Present CIWA-Ar Total Score: 15 Admission ROS S - HPI Chief Complaint: I am here for detox and go to rehab afterwards. Allergies/Adverse Reactions: Allergies Allergy/AdvReac Type Severity Reaction Status Date / Time No Known Allergies Allergy Verified 08/06/17 10:48 History of Present Illness: pt is a 62yr old male with a history of alcohol and heroin dependence seeking detox for treatment. Exam Limitations: No Limitations - Ebola screening Have you traveled outside of the country in the last 21 days: No Have you had contact with anyone from an Ebola affected area: No Have you been sick,other than usual withdrawal symptoms: No Do you have a fever: No - Review of Systems Constitutional: Diaphoresis, Loss of Appetite, Night Sweats, Changes in sleep EENT: reports: Tearing, Nose Congestion Respiratory: reports: No Symptoms reported Cardiac: reports: No Symptoms Reported GI: reports: Nausea, Poor Appetite, Poor Fluid Intake, Indigestion : reports: No Symptoms Reported Musculoskeletal: reports: Back Pain, Joint Pain, Muscle Pain Integumentary: reports: Flushing, Sweating Neuro: reports: Headache, Tingling, Tremors Endocrine: reports: Excessive Sweating, Flushing, Intolerance to Cold, Intolerance to Heat Hematology: reports: No Symptoms Reported Psychiatric: reports: No Sypmtoms Reported, Judgement Intact, Mood/Affect Appropiate, Orientated x3, Agitated, Anxious Patient History - Patient Medical History Hx Anemia: No Hx Asthma: Yes Hx Chronic Obstructive Pulmonary Disease (COPD): No Hx Cancer: No Hx Cardiac Disorders: No Hx Congestive Heart Failure: No Hx Hypertension: No Hx Hypercholesterolemia: No Hx Pacemaker: No HX Cerebrovascular Accident: No Hx Seizures: No Hx Dementia: No Hx Diabetes: No Hx Gastrointestinal Disorders: No Hx Liver Disease: No Hx Genitourinary Disorders: No Hx Sexually Transmitted Disorders: No Hx Renal Disease (ESRD): No Hx Thyroid Disease: No Hx Human Immunodeficiency Virus (HIV): No (negative) Hx Hepatitis C: Yes (not treatment needed - viral load negative) Hx Depression: No Hx Suicide Attempt: No Hx Bipolar Disorder: No Hx Schizophrenia: No Other Medical History: insomnia - Patient Surgical History Past Surgical History: Yes Hx Neurologic Surgery: No Hx Cataract Extraction: No Hx Cardiac Surgery: No Hx Lung Surgery: No Hx Breast Surgery: No Hx Breast Biopsy: No Hx Abdominal Surgery: Yes (Incisional hernia repair in 2010.) Hx Appendectomy: No Hx Cholecystectomy: No Hx Genitourinary Surgery: No Hx Section: No Hx Orthopedic Surgery: No Other Surgical History: Chest sx in 2010 (Unsure of reason). Anesthesia Reaction: No - PPD History Previous Implant?: Yes Documented Results: Negative w/proof Date: 03/27/17 Results: 0 mm PPD to be Administered?: No - Reproductive History Patient is a Female of Child Bearing Age (11 -55 yrs old): No - Smoking Cessation Smoking history: Current every day smoker Have you smoked in the past 12 months: Yes Aproximately how many cigarettes per day: 20 Cigars Per Day: 0 Hx Chewing Tobacco Use: No Initiated information on smoking cessation: Yes 'Breaking Loose' booklet given: 08/06/17 - Substance & Tx. History Hx Alcohol Use: Yes Hx Substance Use: Yes Substance Use Type: Alcohol, Heroin Hx Substance Use Treatment: Yes (last detox [facility] 05/2017) - Substances Abused Heroin Route: Inhalation Frequency: Daily Amount used: 20 bags Age of first use: 31 Date of Last Use: 08/04/17 Alcohol- Route: Oral Frequency: Daily Amount used: 2-6 pks. (beer) Age of first use: 21 Date of Last Use: 08/04/17 Family Disease History - Family Disease History Family Disease History: [place]: Mother (, ), Other: Father (no contact), Mother, Brother (three living, healthy), Sister (two, living, healthy), Daughter (two, living, healthy) Admission Physical Exam [facility] - Vital Signs Vital Signs: Vital Signs - 24 hr 08/06/17 10:35 Temperature 96.7 F L Pulse Rate 68 Respiratory 20 Rate Blood Pressure 151/87 - Physical General Appearance: Yes: Appropriately Dressed, Moderate Distress, Tremorous, Irritable, Sweating, Anxious HEENTM: Yes: Hearing grossly Normal, Nasal Congestion Respiratory: Yes: Lungs Clear, Normal Breath Sounds, No Respiratory Distress Neck: Yes: No masses,lesions,Nodules Breast: Yes: Within Normal Limits Cardiology: Yes: Regular Rhythm, Regular Rate, S1, S2 Abdominal: Yes: Normal Bowel Sounds, Non Tender, Soft Genitourinary: Yes: Within Normal Limits Back: Yes: Normal Inspection Musculoskeletal: Yes: Back pain, Muscle Pain Extremities: Yes: Normal Capillary Refill, Normal Inspection, Tremors Neurological: Yes: Fully Oriented, Alert, Normal Response Integumentary: Yes: Normal Color, Diaphoresis Lymphatic: Yes: Within Normal Limits - Diagnostic (1) Alcohol dependence with uncomplicated withdrawal Current Visit: Yes Status: Chronic (2) Opioid dependence with withdrawal Current Visit: Yes Status: Chronic Cleared for Admission [facility] - Detox or Rehab [facility] Level of Care: Medically Managed Detox Regimen/Protocol: Methadone/Librium [facility] Breath Alcohol Content Breath Alcohol Content: 0 Urine Drug Screen - Results Drug Screen Negative: No Urine Drug Screen Results: OPI-Opiates, BZO-Benzodiazepines
[2017-08-06] MEDS ORDERED: ACETAMINOPHEN 325 MG TABLET (FP) PO PRN (12:56)
[2017-08-06] MEDS ORDERED: MENTHOL/PHENOL 1 EACH UD MM PRN (12:56)
[2017-08-06] MEDS ORDERED: guaiFENesin/D-METHORPHAN HB 10 ML UNIT-DOSE CUPS PO PRN (12:56)
[2017-08-06] MEDS ORDERED: P-EPHED 60MG/TRIPROLIDI 2.5MG TABLET PO PRN (12:56)
[2017-08-06] MEDS ORDERED: NICOTINE POLACRILEX 4 MG GUM BUC PRN (12:56)
[2017-08-06] MEDS ORDERED: MAGNESIUM CITRATE 300 ML BOTTLE PO PRN (12:56)
[2017-08-06] MEDS ORDERED: MAGNESIUM HYDROX 2400MG/30ML ORAL SUSPENSION 30 ML CUP PO PRN (12:56)
[2017-08-06] MEDS ORDERED: IBUPROFEN 400 MG TABLET (FP) PO PRN (12:56)
[2017-08-06] MEDS ORDERED: MAG HYDROX/AL HYDROX/SIMETH 30 ML UNIT-DOSE CUP PO PRN (12:56)
[2017-08-06] MEDS ORDERED: ALBUTEROL SO4 18 GM HFA INHALER IH PRN (12:59)
[2017-08-06] MEDS ORDERED: chlordiazePOXIDE HCL 25 MG CAPSULE PO ONE (13:57)
[2017-08-06] MEDS ORDERED: METHADONE HCL 10 MG TABLET (FOR DETOX USE ONLY) PO ONE ×2 (13:58→23:00)
[2017-08-06] MEDS: LOPERAMIDE HCL 2 MG CAPSULE PO PRN (14:37)
[2017-08-06] MEDS: chlordiazePOXIDE HCL 25 MG CAPSULE PO SCH ×2 (17:03→22:30)
[2017-08-06 20:48] LABS: URINE APPEARANCE CLEAR; URINE BILIRUBIN NEGATIVE (NEGATIVE); URINE BLOOD 3+ (NEGATIVE); URINE COLOR YELLOW; URINE GLUCOSE (UA) NEGATIVE (NEGATIVE); URINE KETONE NEGATIVE (NEGATIVE); URINE NITRITE NEGATIVE (NEGATIVE); URINE PROTEIN NEGATIVE (NEGATIVE); URINE UROBILINOGEN NEGATIVE mg/dL (0.2-1.0)
[2017-08-06 21:16] LABS: URINE BACTERIA RARE /hpf (NONE SEEN); URINE RBC 69 /hpf (0-3); URINE WBC 6 /hpf (3-5)
[2017-08-06 22:22] LABS: URINE LEUK ESTERASE Negative (NEGATIVE)
[2017-08-06] MEDS: THIAMINE HCL 100 MG TABLET (FP) PO SCH (22:30)
[2017-08-06] MEDS: diphenhydrAMINE HCL 50 MG CAPSULE PO PRN (22:31)
[2017-08-07] MEDS: chlordiazePOXIDE HCL 25 MG CAPSULE PO PRN ×2 (01:23→12:23)
[2017-08-07] MEDS: diphenhydrAMINE HCL 50 MG CAPSULE PO PRN ×2 (01:23→22:28)
[2017-08-07] MEDS: chlordiazePOXIDE HCL 25 MG CAPSULE PO SCH ×4 (05:38→22:27)
--- NOTE | 2017-08-07 09:56 | PN ---
[facility] CIWA - CIWA Score Nausea/Vomitin-No Nausea/No Vomiting Muscle Tremors: 4-Moderate,w/Arms Extend Anxiety: 3 Agitation: 4-Moderately Restless Paroxysmal Sweats: 3 Orientation: 0-Oriented Tacttile Disturbances: 0-None Auditory Disturbances: 0-None Visual Disturbances: 0-None Headache: 0-None Present CIWA-Ar Total Score: 14 S COWS - Scale Resting Pulse: 0= [place] 80 or Below Sweatin=Flushed/Facial Moisture Restless Observation: 1= Difficult to Sit Still Pupil Size: 0= Normal to Room Light Bone or Joint Aches: 2= Severe Diffuse Aches Runny Nose/ Eye Tearin= Runny Nose/Eyes GI Upset > 30mins: 0= None Tremor Observation of Outstretched Hands: 2= Slight Tremor Visible Yawning Observation: 1= 1-2x During Session Anxiety or Irritability: 2=Irritable/Anxious Goose Flesh Skin: 0=Smooth Skin COWS Score: 12 S Progress Note (SOAP) Subjective: agitation irritable interrupted sleep sweats tired Objective: 08/07/17 09:56 Vital Signs Temperature 97.2 F L 08/07/17 09:37 Pulse Rate 61 08/07/17 09:37 Respiratory Rate 18 08/07/17 09:37 Blood Pressure 123/76 08/07/17 09:37 O2 Sat by Pulse Oximetry (%) Laboratory Tests 08/06/17 16:00 Urine Color Yellow Urine Appearance Clear Urine pH 6.0 Ur Specific [place] 1.020 Urine Protein Negative Urine Glucose (UA) Negative Urine Ketones Negative Urine Blood 3+ H Urine Nitrite Negative Urine Bilirubin Negative Urine Urobilinogen Negative Ur Leukocyte Esterase Negative Urine RBC 69 Urine WBC 6 Ur Epithelial Cells Rare Urine Bacteria Rare labs pending aaox3 ambulating no acute distress Assessment: 08/07/17 09:57 withdrawal sx Plan: continue detox increase fluids labs pending
[2017-08-07] MEDS ORDERED: METHADONE HCL 10 MG TABLET (FOR DETOX USE ONLY) PO SCH (10:00)
[2017-08-07] MEDS: ASPIRIN 81 MG CHEWABLE TABLETS PO SCH (10:14)
[2017-08-07] MEDS: PRENATAL VITAMINS W/ FOLIC ACID TABLET (FP) PO SCH (10:14)
[2017-08-07] MEDS: NICOTINE 21 MG/24 HOURS TOPICAL PATCH TD SCH (10:14)
[2017-08-07 10:18] LABS: MCH 30.1 pg (25.7-33.7); MCHC 32.3 g/dl (32.0-35.9); MEAN CELL VOLUME 93.4 fl (80-96); MEAN PLT VOLUME 9.7 fl (7.5-11.1); PLATELET COUNT 320 K/MM3 (134-434); WHITE BLOOD COUNT 8.1 K/mm3 (4.0-10.0)
[2017-08-07 10:33] LABS: ALK PHOS 74 U/L (45-117); ANION GAP 8 (8-16); BILIRUBIN,TOTAL 1.2 mg/dL (0.2-1.0); CALCIUM 9.2 mg/dL (8.5-10.1); CO2 28 mmol/L (21-32); CREATININE 0.8 mg/dL (0.7-1.3); GLUCOSE,RANDOM 79 mg/dL (74-106); SGOT/AST 16 U/L (15-37); SGPT/ALT 18 U/L (12-78); TOT PROT 7.5 g/dl (6.4-8.2)
--- NOTE | 2017-08-07 11:01 | CONSULT ---
[facility] Psychiatric Consult - Data Date of interview: 08/07/17 Admission source: [facility] Identifying data: Readmission to [facility] for this 62 y/o AA male seeking detox treatment on for heroin,cocaine and alcohol dependence.Patient is ,a father of nine,homeless,unemployed,disabled and supported on SSI benefits. Substance Abuse History: Confirmed by patient. Smoking Cessation. Smoking history: Current every day smoker. Have you smoked in the past 12 months: Yes. Aproximately how many cigarettes per day: 20. Cigars Per Day: 0. Hx Chewing Tobacco Use: No. Initiated information on smoking cessation: Yes. 'Breaking Loose' booklet given: 08/06/17. - Substance & Tx. History. Hx Alcohol Use: Yes. Hx Substance Use: Yes. Substance Use Type: Alcohol, Heroin. Hx Substance Use Treatment: Yes (last detox [facility] 05/2017). - Substances Abused. Heroin. Route: Inhalation. Frequency: Daily. Amount used: 20 bags. Age of first use: 31. Date of Last Use: 08/04/17. Alcohol-. Route: Oral. Frequency: Daily. Amount used: 2-6 pks. (beer). Age of first use: 21. Date of Last Use: 08/04/17 Medical History: Unchanged medical profile : hepatitis C,bronchial asthma, hypertension,GERD,low back pain,past incisional herniorraphy and spinal stenosis. Psychiatric History: History of psychiatric hospitalizations at [facility].Diagnosed with Bipolar Disorder.Non-adherence to OPD care.Mr Gay states that he gets script for seroquel (50 mg/hs) from a psychiatrist at the [facility] in [facility].No history of suicide attempts. Physical/Sexual Abuse/Trauma History: Patient denies history of abuse. Additional Comment: Urine Drug Screen Results: OPI-Opiates, BZO- Benzodiazepines.Noted. Mental Status Exam - Mental Status Exam Alert and Oriented to: Time, Place, Person Cognitive Function: Grossly Intact Patient Appearance: Well Groomed Mood: Withdrawn, Hopeful Affect: Constricted Patient Behavior: Sedated (mildly sedated but able to answer simple questions), Fatigued Speech Pattern: Delayed, Slurred Voice Loudness: Normal Thought Process: Disorganized (moderately) Thought Disorder: Not Present Hallucinations: Denies Suicidal Ideation: Denies Homicidal Ideation: Denies Insight/Judgement: Poor Sleep: Poorly, Difficulty falling asleep Appetite: Fair Gait/Station: Other (not observed ; patient in bed through the interview) Psychiatric Findings - Problem List ([place] 1, 2,3) (1) Alcohol dependence with uncomplicated withdrawal Current Visit: Yes Status: Chronic (2) Opioid dependence with withdrawal Current Visit: Yes Status: Chronic (3) Substance induced mood disorder Current Visit: Yes Status: Acute (4) Nicotine dependence Current Visit: Yes Status: Acute Qualifiers: Nicotine product type: cigarettes Substance use status: uncomplicated Qualified Code(s): F17.210 - Nicotine dependence, cigarettes, uncomplicated; F17.210 - Nicotine dependence, cigarettes, uncomplicated (5) Asthma Current Visit: Yes Status: Chronic (6) Low back pain Current Visit: Yes Status: Chronic Qualifiers: Chronicity: chronic Back pain laterality: unspecified Sciatica presence: unspecified whether sciatica present Qualified Code(s): M54.5 - Low back pain; M54.5 - Low back pain (7) Spinal stenosis Current Visit: No Status: Chronic Qualifiers: Spinal region: lumbar (8) Insomnia Current Visit: Yes Status: Acute Qualifiers: Insomnia type: primary Qualified Code(s): F51.01 - Primary insomnia ; F51.01 - Primary insomnia - Initial Treatment Plan Initial Treatment Plan: Psychoeducation.Detoxification in progress.Seroquel 50 mg po hs (patient's request).Made aware of side effects/benefits.Observation.
[2017-08-07] MEDS: hydrOXYzine PAMOATE 50 MG CAPSULE (FP) PO PRN (12:23)
[2017-08-07] MEDS: GABAPENTIN 300 MG CAPSULE (FP) PO SCH ×2 (14:18→22:28)
[2017-08-07] MEDS: THIAMINE HCL 100 MG TABLET (FP) PO SCH (22:27)
[2017-08-07] MEDS: NAPROXEN 500 MG TABLET (FP) PO SCH (22:27)
[2017-08-08] MEDS: chlordiazePOXIDE HCL 25 MG CAPSULE PO SCH ×2 (05:45→10:14)
[2017-08-08] MEDS: GABAPENTIN 300 MG CAPSULE (FP) PO SCH ×3 (05:45→21:57)
--- NOTE | 2017-08-08 09:49 | EKG ---
Test Reason : Blood Pressure : / mmHG Vent. Rate : 058 BPM Atrial Rate : 058 BPM P-R Int : 154 ms QRS Dur : 108 ms QT Int : 462 ms P-R-T Axes : 069 -34 023 degrees QTc Int : 453 ms SINUS BRADYCARDIA LEFT AXIS DEVIATION SEPTAL INFARCT (CITED ON OR BEFORE 07-NOV-2016) ABNORMAL ECG WHEN COMPARED WITH ECG OF 26-MAY-2017 14:33, T WAVE INVERSION NO LONGER EVIDENT IN INFERIOR LEADS NONSPECIFIC T WAVE ABNORMALITY NO LONGER EVIDENT IN LATERAL LEADS Confirmed by MARGAUX KABA, SHARON ([id number]) on 08/08/2017 9:48:59 AM Referred By: Confirmed By:SHARON DAMICO MD
[2017-08-08] MEDS: METHADONE HCL 5 MG TABLET (FOR DETOX USE ONLY) PO SCH (10:14)
--- NOTE | 2017-08-08 10:14 | PN ---
[facility] CIWA - CIWA Score Nausea/Vomitin-No Nausea/No Vomiting Muscle Tremors: 4-Moderate,w/Arms Extend Anxiety: 3 Agitation: 4-Moderately Restless Paroxysmal Sweats: 3 Orientation: 0-Oriented Tacttile Disturbances: 0-None Auditory Disturbances: 0-None Visual Disturbances: 0-None Headache: 0-None Present CIWA-Ar Total Score: 14 S COWS - Scale Resting Pulse: 0= [place] 80 or Below Sweatin=Flushed/Facial Moisture Restless Observation: 1= Difficult to Sit Still Pupil Size: 0= Normal to Room Light Bone or Joint Aches: 2= Severe Diffuse Aches Runny Nose/ Eye Tearin= Nasal Congestion GI Upset > 30mins: 0= None Tremor Observation of Outstretched Hands: 2= Slight Tremor Visible Yawning Observation: 0= None Anxiety or Irritability: 2=Irritable/Anxious Goose Flesh Skin: 0=Smooth Skin COWS Score: 10 S Progress Note (SOAP) Subjective: irritable agitation anxiety sweats shakes interrupted sleep Objective: 08/08/17 10:12 Vital Signs Temperature 96.8 F L 08/08/17 06:28 Pulse Rate 76 08/08/17 06:28 Respiratory Rate 18 08/08/17 06:28 Blood Pressure 125/74 08/08/17 06:28 O2 Sat by Pulse Oximetry (%) Laboratory Tests 08/06/17 08/07/17 08/07/17 16:00 06:00 06:00 WBC 8.1 RBC 4.74 Hgb 14.3 Hct 44.3 MCV 93.4 MCH 30.1 MCHC 32.3 RDW 15.0 Plt Count 320 MPV 9.7 Sodium 142 Potassium 4.1 Chloride 106 Carbon Dioxide 28 Anion Gap 8 BUN 9 Creatinine 0.8 D Creat Clearance w eGFR > 60 Random Glucose 79 Calcium 9.2 Total Bilirubin 1.2 H D AST 16 D ALT 18 D Alkaline Phosphatase 74 Total Protein 7.5 Albumin 4.0 Urine Color Yellow Urine Appearance Clear Urine pH 6.0 Ur Specific [place] 1.020 Urine Protein Negative Urine Glucose (UA) Negative Urine Ketones Negative Urine Blood 3+ H Urine Nitrite Negative Urine Bilirubin Negative Urine Urobilinogen Negative Ur Leukocyte Esterase Negative Urine RBC 69 Urine WBC 6 Ur Epithelial Cells Rare Urine Bacteria Rare RPR Titer 08/07/17 06:00 WBC RBC Hgb Hct MCV MCH MCHC RDW Plt Count MPV Sodium Potassium Chloride Carbon Dioxide Anion Gap BUN Creatinine Creat Clearance w eGFR Random Glucose Calcium Total Bilirubin AST ALT Alkaline Phosphatase Total Protein Albumin Urine Color Urine Appearance Urine pH Ur Specific [place] Urine Protein Urine Glucose (UA) Urine Ketones Urine Blood Urine Nitrite Urine Bilirubin Urine Urobilinogen Ur Leukocyte Esterase Urine RBC Urine WBC Ur Epithelial Cells Urine Bacteria RPR Titer Nonreactive aaox3 ambulating no acute distress Assessment: 08/08/17 10:14 withdrawal sx Plan: continue detox increase fluids
[2017-08-08] MEDS: ASPIRIN 81 MG CHEWABLE TABLETS PO SCH (10:15)
[2017-08-08] MEDS: NICOTINE 21 MG/24 HOURS TOPICAL PATCH TD SCH (10:15)
[2017-08-08] MEDS: NAPROXEN 500 MG TABLET (FP) PO SCH ×2 (10:15→21:57)
[2017-08-08] MEDS: PRENATAL VITAMINS W/ FOLIC ACID TABLET (FP) PO SCH (10:15)
[2017-08-08] MEDS: chlordiazePOXIDE HCL 25 MG CAPSULE PO PRN (12:13)
[2017-08-08] MEDS: hydrOXYzine PAMOATE 50 MG CAPSULE (FP) PO PRN (14:07)
[2017-08-08] MEDS: chlordiazePOXIDE 5 MG CAPSULE PO SCH ×2 (16:31→21:59)
--- NOTE | 2017-08-08 18:01 | PN ---
[facility] Progress Note Note: Psychiatry Attending's note : Brief interview with this patient. Reason : refractory insomnia. " Seroquel at 50 mg is not working for me." Mr Gay requests 100 mg at bedtime. Patient is reminded of benefits of sleep hygiene. Seroquel 100 mg po hs.Ordered.
[2017-08-08] MEDS: LOPERAMIDE HCL 2 MG CAPSULE PO PRN (21:15)
[2017-08-08] MEDS: THIAMINE HCL 100 MG TABLET (FP) PO SCH (21:57)
[2017-08-08] MEDS ORDERED: QUEtiapine FUMARATE 100 MG TABLET (FP) PO SCH (22:00)
[2017-08-09] MEDS: LOPERAMIDE HCL 2 MG CAPSULE PO PRN ×2 (02:16→10:06)
[2017-08-09] MEDS: chlordiazePOXIDE 5 MG CAPSULE PO SCH ×2 (07:47→10:07)
[2017-08-09] MEDS: GABAPENTIN 300 MG CAPSULE (FP) PO SCH ×3 (07:47→22:27)
[2017-08-09] MEDS: NAPROXEN 500 MG TABLET (FP) PO SCH ×2 (10:05→22:27)
[2017-08-09] MEDS: METHADONE HCL 5 MG TABLET (FOR DETOX USE ONLY) PO SCH (10:06)
[2017-08-09] MEDS: ASPIRIN 81 MG CHEWABLE TABLETS PO SCH (10:06)
[2017-08-09] MEDS: PRENATAL VITAMINS W/ FOLIC ACID TABLET (FP) PO SCH (10:06)
[2017-08-09] MEDS: NICOTINE 21 MG/24 HOURS TOPICAL PATCH TD SCH (10:07)
--- NOTE | 2017-08-09 10:28 | PN ---
[facility] Progress Note (SOAP) Subjective: sleepy groggy diarrhea Objective: 08/09/17 10:25 Vital Signs Temperature 97.0 F L 08/09/17 06:00 Pulse Rate 78 08/09/17 06:00 Respiratory Rate 18 08/09/17 06:00 Blood Pressure 118/65 08/09/17 06:00 O2 Sat by Pulse Oximetry (%) Laboratory Tests 08/06/17 08/07/17 08/07/17 16:00 06:00 06:00 WBC 8.1 RBC 4.74 Hgb 14.3 Hct 44.3 MCV 93.4 MCH 30.1 MCHC 32.3 RDW 15.0 Plt Count 320 MPV 9.7 Sodium 142 Potassium 4.1 Chloride 106 Carbon Dioxide 28 Anion Gap 8 BUN 9 Creatinine 0.8 D Creat Clearance w eGFR > 60 POC Glucometer Random Glucose 79 Calcium 9.2 Total Bilirubin 1.2 H D AST 16 D ALT 18 D Alkaline Phosphatase 74 Total Protein 7.5 Albumin 4.0 Urine Color Yellow Urine Appearance Clear Urine pH 6.0 Ur Specific [place] 1.020 Urine Protein Negative Urine Glucose (UA) Negative Urine Ketones Negative Urine Blood 3+ H Urine Nitrite Negative Urine Bilirubin Negative Urine Urobilinogen Negative Ur Leukocyte Esterase Negative Urine RBC 69 Urine WBC 6 Ur Epithelial Cells Rare Urine Bacteria Rare RPR Titer 08/07/17 08/09/17 06:00 02:10 WBC RBC Hgb Hct MCV MCH MCHC RDW Plt Count MPV Sodium Potassium Chloride Carbon Dioxide Anion Gap BUN Creatinine Creat Clearance w eGFR POC Glucometer 111 Random Glucose Calcium Total Bilirubin AST ALT Alkaline Phosphatase Total Protein Albumin Urine Color Urine Appearance Urine pH Ur Specific [place] Urine Protein Urine Glucose (UA) Urine Ketones Urine Blood Urine Nitrite Urine Bilirubin Urine Urobilinogen Ur Leukocyte Esterase Urine RBC Urine WBC Ur Epithelial Cells Urine Bacteria RPR Titer Nonreactive aaox3 ambulating no acute distress Assessment: 08/09/17 10:26 withdrawal sx Plan: hold librium and seroquel all sedating medication on hold resume detox later increase fluids immodium prn
--- NOTE | 2017-08-09 15:21 | PN ---
Psychiatric Progress Note Vital Signs: Vital Signs Period Temp Pulse Resp BP Sys/Torres Pulse Ox Last 24 Hr 97.0 F-98.6 F 75-84 16-20 113-129/57-69 Date of Session: 08/09/17 Chief Complaint:: " I felt so weird last night.So drowsy and unsteady." Oversedation. HPI: Day 3 of detoxification.Patient was observed as sedated,disorganized and unsteady last night.Sedation was still evident in the morning. ROS: Marked improvement noted in this examination.Patient is obseved ambulating independently on the unit.Steadier gait.Alert and fully oriented, conversant.Coherent.Complains of mild drowsiness.Normal vitals. Current Medications: Active Medications Generic Name Dose Route Start Last Admin Trade Name Freq PRN Reason Stop Dose Admin Acetaminophen 650 mg 08/06/17 12:56 Tylenol - PO Q4H PRN FEVER OR PAIN Al Hydroxide/Mg Hydroxide 30 ml 08/06/17 12:56 08/07/17 20:10 Mylanta Oral Suspension - PO 30 ml Q6H PRN Administration DYSPEPSIA Albuterol Sulfate 2 puff 08/06/17 12:59 Ventolin Hfa Inhaler - IH Q4H PRN SHORTNESS OF BREATH Aspirin 81 mg 08/07/17 10:00 08/09/17 10:06 Asa - PO 81 mg DAILY LORRAINE Administration Chlordiazepoxide HCl 10 mg 08/09/17 17:00 Librium - PO 08/10/17 11:01 Q1X-FWB LORRAINE Diphenhydramine HCl 50 mg 08/06/17 12:56 08/07/17 22:28 Benadryl - PO 50 mg HSMR1 PRN Administration INSOMNIA Eucalyptus/Menthol/Phenol/Sorbitol 1 each 08/06/17 12:56 Cepastat Lozenge - MM Q4H PRN SORE THROAT Gabapentin 300 mg 08/07/17 14:15 08/09/17 07:47 Neurontin - PO Not Given TID LORRAINE Guaifenesin 10 ml 08/06/17 12:56 Robitussin Dm - PO Q6H PRN COUGH Hydroxyzine Pamoate 50 mg 08/06/17 12:56 08/08/17 14:07 Vistaril - PO 50 mg Q4H PRN Administration AGITATION Loperamide HCl 4 mg 08/06/17 12:56 08/09/17 10:06 Imodium - PO 4 mg Q6H PRN Administration DIARRHEA Magnesium Citrate 300 ml 08/06/17 12:56 Citroma - PO Q48H PRN CONSTIPATION Magnesium Hydroxide 30 ml 08/06/17 12:56 Milk Of Magnesia - PO DAILY PRN CONSTIPATION Methadone HCl 10 mg 08/10/17 10:00 Dolophine - PO 08/10/17 10:01 DAILY LORRAINE Methadone HCl 5 mg 08/11/17 06:00 Dolophine - PO 08/11/17 06:01 DAILY@0600 LORRAINE Naproxen 500 mg 08/07/17 22:00 08/09/17 10:05 Naprosyn - PO 500 mg BID LORRAINE Administration Nicotine 21 mg 08/07/17 10:00 08/09/17 10:07 Nicoderm Patch - TD Not Given DAILY LORRAINE Nicotine Polacrilex 4 mg 08/06/17 12:56 Nicorette Gum - BUC Q2H PRN NICOTINE REPLACEMENT RX Multivit/Folic Acid/Iron 1 tab 08/07/17 10:00 08/09/17 10:06 Vitamins (Sjr) - PO 1 tab DAILY LORRAINE Administration Pseudoephedrine/Triprolidine 1 combo 08/06/17 12:56 Actifed - PO TID PRN NASAL CONGESTION Thiamine HCl 100 mg 08/06/17 22:00 08/08/17 21:57 Vitamin B1 - PO 100 mg HS LORRAINE Administration Medication(s) Change(s): Seroquel is discontinued and librium held. Current Side Effect: Yes (sedation is likely medication-related.Suspects: seroquel and librium.) Lab tests ordered: No Lab tests reviewed: Yes Provider note:: Chart reviewed.Medications are revisited.Case discussed with nursing staff.Patient is examined.Mr Gay,at the beginning of this interview, is angry,irritable,overly anxious and adversarial." I want a telephone to get in touch with my pediatric physician assistant." Request acknowledged and honored by counselor cT.Patient calmed down.Psychiatric interview lasted 45 minutes.Patient is receptive to teaching.Participates actively in the session.Side effects/ benefits of seroquel and librium are,again,reviewed.Treatment plan discussed in detail (temporary withdrawal of seroquel and close monitoring of librium's dose) .Patient is instructed to reduce ambulation and spend more time in bed.Mr Gay expresses his agreement to this plan of care.MSE completed.See report.Detoxification treatment : in progress. Mental Status Exam - Mental Status Exam Alert and Oriented to: Time, Place, Person Cognitive Function: Good Patient Appearance: Well Groomed Mood: Apprehensive (gradually became much calmer as patient got more information about the cause of his drowsiness), Irritable Affect: Appropriate, Mood Congruent Patient Behavior: Talkative, Appropriate (friendly with the interviewer), Cooperative Speech Pattern: Clear, Appropriate (logical,relevant and organized) Voice Loudness: Normal Thought Process: Goal Oriented Hallucinations: Denies Suicidal Ideation: Denies Homicidal Ideation: Denies Insight/Judgement: Fair Sleep: Well (morning sleepiness) Appetite: Good Gait/Station: Other (much steadier ; patient is able to move around independently ; no falls) Psychiatric Treatment Plan - Problem List (1) Drowsiness Current Visit: Yes Comment: Mild.Considerably improved. (2) Alcohol dependence with uncomplicated withdrawal Current Visit: Yes (3) Opioid dependence with withdrawal Current Visit: Yes (4) Substance induced mood disorder Current Visit: Yes (5) Nicotine dependence Current Visit: Yes Qualifiers: Qualified Code(s): F17.210 - Nicotine dependence, cigarettes, uncomplicated; F17.210 - Nicotine dependence, cigarettes, uncomplicated (6) Asthma Current Visit: Yes (7) Low back pain Current Visit: Yes Qualifiers: Qualified Code(s): M54.5 - Low back pain; M54.5 - Low back pain (8) Spinal stenosis Current Visit: No (9) Insomnia Current Visit: Yes Qualifiers: Qualified Code(s): F51.01 - Primary insomnia; F51.01 - Primary insomnia
[2017-08-09] MEDS: chlordiazePOXIDE HCL 10 MG CAPSULE PO SCH ×2 (17:15→22:27)
[2017-08-09] MEDS: THIAMINE HCL 100 MG TABLET (FP) PO SCH (22:27)
[2017-08-10] MEDS: hydrOXYzine PAMOATE 50 MG CAPSULE (FP) PO PRN (01:28)
[2017-08-10] MEDS: chlordiazePOXIDE HCL 10 MG CAPSULE PO SCH ×2 (05:48→10:27)
[2017-08-10] MEDS: GABAPENTIN 300 MG CAPSULE (FP) PO SCH ×3 (05:48→22:17)
[2017-08-10] MEDS: LOPERAMIDE HCL 2 MG CAPSULE PO PRN ×2 (06:58→12:39)
[2017-08-10] MEDS ORDERED: METHADONE HCL 10 MG TABLET (FOR DETOX USE ONLY) PO SCH (10:00)
[2017-08-10] MEDS: ASPIRIN 81 MG CHEWABLE TABLETS PO SCH (10:27)
[2017-08-10] MEDS: PRENATAL VITAMINS W/ FOLIC ACID TABLET (FP) PO SCH (10:27)
[2017-08-10] MEDS: NAPROXEN 500 MG TABLET (FP) PO SCH ×2 (10:27→22:17)
[2017-08-10] MEDS: NICOTINE 21 MG/24 HOURS TOPICAL PATCH TD SCH (10:29)
--- NOTE | 2017-08-10 13:50 | PN ---
[facility] Progress Note (SOAP) Subjective: Interrupted sleep, shakes, anxiety, malaise, diarrhea Objective: 08/10/17 13:49 Vital Signs Temperature 97.7 F 08/10/17 13:08 Pulse Rate 79 08/10/17 13:08 Respiratory Rate 19 08/10/17 13:08 Blood Pressure 119/73 08/10/17 13:08 O2 Sat by Pulse Oximetry (%) Laboratory Last Values WBC 8.1 K/mm3 (4.0-10.0) 08/07/17 06:00 RBC 4.74 M/mm3 (4.00-5.60) 08/07/17 06:00 Hgb 14.3 GM/dL (11.7-16.9) 08/07/17 06:00 Hct 44.3 % (35.4-49) 08/07/17 06:00 MCV 93.4 fl (80-96) 08/07/17 06:00 MCH 30.1 pg (25.7-33.7) 08/07/17 06:00 MCHC 32.3 g/dl (32.0-35.9) 08/07/17 06:00 RDW 15.0 % (11.9-15.9) 08/07/17 06:00 Plt Count 320 K/MM3 (134-434) 08/07/17 06:00 MPV 9.7 fl (7.5-11.1) 08/07/17 06:00 Sodium 142 mmol/L (136-145) 08/07/17 06:00 Potassium 4.1 mmol/L (3.5-5.1) 08/07/17 06:00 Chloride 106 mmol/L (98-107) 08/07/17 06:00 Carbon Dioxide 28 mmol/L (21-32) 08/07/17 06:00 Anion Gap 8 (8-16) 08/07/17 06:00 BUN 9 mg/dL (7-18) 08/07/17 06:00 Creatinine 0.8 mg/dL (0.7-1.3) D 08/07/17 06:00 Creat Clearance w eGFR > 60 (>60) 08/07/17 06:00 POC Glucometer 111 UNITS (()) 08/09/17 02:10 Random Glucose 79 mg/dL (74-106) 08/07/17 06:00 Calcium 9.2 mg/dL (8.5-10.1) 08/07/17 06:00 Total Bilirubin 1.2 mg/dL (0.2-1.0) H D 08/07/17 06:00 AST 16 U/L (15-37) D 08/07/17 06:00 ALT 18 U/L (12-78) D 08/07/17 06:00 Alkaline Phosphatase 74 U/L (45-117) 08/07/17 06:00 Total Protein 7.5 g/dl (6.4-8.2) 08/07/17 06:00 Albumin 4.0 g/dl (3.4-5.0) 08/07/17 06:00 Urine Color Yellow 08/06/17 16:00 Urine Appearance Clear 08/06/17 16:00 Urine pH 6.0 (5.0-8.0) 08/06/17 16:00 Ur Specific [place] 1.020 (1.005-1.025) 08/06/17 16:00 Urine Protein Negative (NEGATIVE) 08/06/17 16:00 Urine Glucose (UA) Negative (NEGATIVE) 08/06/17 16:00 Urine Ketones Negative (NEGATIVE) 08/06/17 16:00 Urine Blood 3+ (NEGATIVE) H 08/06/17 16:00 Urine Nitrite Negative (NEGATIVE) 08/06/17 16:00 Urine Bilirubin Negative (NEGATIVE) 08/06/17 16:00 Urine Urobilinogen Negative mg/dL (0.2-1.0) 08/06/17 16:00 Ur Leukocyte Esterase Negative (NEGATIVE) 08/06/17 16:00 Urine RBC 69 /hpf (0-3) 08/06/17 16:00 Urine WBC 6 /hpf (3-5) 08/06/17 16:00 Ur Epithelial Cells Rare /hpf (FEW) 08/06/17 16:00 Urine Bacteria Rare /hpf (NONE SEEN) 08/06/17 16:00 RPR Titer Nonreactive (NONREACTIVE) 08/07/17 06:00 Labs noted 08/10/17 13:50 Assessment: Withdrawal sx Plan: Continue detox
[2017-08-10] MEDS: THIAMINE HCL 100 MG TABLET (FP) PO SCH (22:17)
[2017-08-10] MEDS: diphenhydrAMINE HCL 50 MG CAPSULE PO PRN (22:17)
[2017-08-11] MEDS: GABAPENTIN 300 MG CAPSULE (FP) PO SCH (05:39)
[2017-08-11] MEDS ORDERED: METHADONE HCL 5 MG TABLET (FOR DETOX USE ONLY) PO SCH (06:00)
[2017-08-11 06:38] VITALS: BP 101/68; PULSE 70; TEMP 96.8
--- NOTE | 2017-08-11 09:00 | DS ---
[facility] Detox Discharge Summary Admission Date: 08/06/17 Discharge Date: 08/18/17 - History Present History: Alcohol Dependence, Opioid Dependence Additional Comments: follow up with after care program as arrangement - Physical Exam Results Vital Signs: Vital Signs Temperature 96.8 F L 08/11/17 06:38 Pulse Rate 70 08/11/17 06:38 Respiratory Rate 18 08/11/17 06:38 Blood Pressure 101/68 08/11/17 06:38 O2 Sat by Pulse Oximetry (%) - Treatment Hospital Course: Detox Protocol Followed, Detoxed Safely, Responded well, Discharged Condition Good, Rehab Referral Accepted Patient has Accepted a Rehab Referral to: [facility] - Medication Discharge Medications: Ambulatory Orders Gabapentin [Neurontin -] 300 mg PO Q8H 11/07/16 Quetiapine Fumarate [Seroquel -] 50 mg PO HS #30 tablet 05/28/17 Albuterol Sulfate Inhaler - [Ventolin HFA Inhaler -] 2 inh IH Q4H PRN #1 inh 12/15 Aspirin [ASA -] 81 mg PO DAILY #14 meq 05/30/17 Naproxen [Naprosyn -] 500 mg PO BID #28 mg 05/30/17 Quetiapine Fumarate [Seroquel] 100 mg PO HS #30 tablet 08/08/17 - Diagnosis (1) Opioid dependence with withdrawal Current Visit: Yes Status: Acute (2) Alcohol dependence with uncomplicated withdrawal Current Visit: Yes Status: Acute (3) Nicotine dependence Current Visit: Yes Status: Acute Qualifiers: Nicotine product type: cigarettes Substance use status: uncomplicated Qualified Code(s): F17.210 - Nicotine dependence, cigarettes, uncomplicated; F17.210 - Nicotine dependence, cigarettes, uncomplicated (4) Substance induced mood disorder Current Visit: Yes Status: Acute (5) Asthma Current Visit: Yes Status: Chronic (6) Low back pain Current Visit: Yes Status: Chronic Qualifiers: Chronicity: chronic Back pain laterality: unspecified Sciatica presence: unspecified whether sciatica present Qualified Code(s): M54.5 - Low back pain; M54.5 - Low back pain (7) Spinal stenosis Current Visit: No Status: Chronic Qualifiers: Spinal region: lumbar - AMA Did Patient Leave Against Medical Advice: No
[2017-08-11] MEDS: ASPIRIN 81 MG CHEWABLE TABLETS PO SCH (10:02)
[2017-08-11] MEDS: PRENATAL VITAMINS W/ FOLIC ACID TABLET (FP) PO SCH (10:02)
[2017-08-11] MEDS: NAPROXEN 500 MG TABLET (FP) PO SCH (10:04)
[2017-08-11] MEDS: NICOTINE 21 MG/24 HOURS TOPICAL PATCH TD SCH (10:22)
== END 2017-08-11 10:09 | disposition home or self-care (01) | DRG 773 ==
LOC: YASAS 08:32 → Y6N 12:35
PROVIDERS: ADMIT Internal Medicine; ATTEND Internal Medicine
PROC: HZ2ZZZZ Detoxification Services for Substance Abuse Treatment (ICD-10-PCS; principal; 2017-08-06)
DX: F11.23 Opioid dependence with withdrawal (principal); F10.230 Alcohol dependence with withdrawal, uncomplicated; F17.210 Nicotine dependence, cigarettes, uncomplicated; F19.24 Other psychoactive substance dependence with psychoactive substance-induced mood disorder; F51.01 Primary insomnia; J45.909 Unspecified asthma, uncomplicated; M54.5 Low back pain; G89.29 Other chronic pain; M48.00 Spinal stenosis, site unspecified; R40.0 Somnolence
CPT/HCPCS: 36415; 80053; 81003; 81015; 85027; 86593; 93005; 93010

== ENCOUNTER 2018-07-31 13:05 | Inpatient (IN) | payer OTHER ==
[2018-07-31 13:54] VITALS: BMI 31.3
--- NOTE | 2018-07-31 14:38 | HP ---
COWS - Scale Resting Pulse: 0= [place] 80 or Below Sweatin= Chills/Flushing Restless Observation: 0= Sits Still Pupil Size: 0= Normal to Room Light Bone or Joint Aches: 2= Severe Diffuse Aches Runny Nose/ Eye Tearin= Nasal Congestion GI Upset > 30mins: 2= Nausea/Diarrhea Tremor Observation: 1= Tremor Cobb, Not Seen Yawning Observation: 1= 1-2x During Session Anxiety or Irritability: 1=Feels Anxious/Irritable Goose Flesh Skin: 3=Piloerection COWS Score: 12 CIWA Score - CIWA Score Nausea/Vomitin-Mild Nausea/No Vomiting Muscle Tremors: 4-Moderate,w/Arms Extend Anxiety: 3 Agitation: 3 Paroxysmal Sweats: 1-Minimal Palms Moist Orientation: 1-Uncertain about Date Tacttile Disturbances: 1-Very Mild Itch/Numbness Auditory Disturbances: 0-None Visual Disturbances: 0-None Headache: 0-None Present CIWA-Ar Total Score: 14 Admission [facility] - HPI Chief Complaint: alcohol and heroin withdrawal sx Allergies/Adverse Reactions: Allergies Allergy/AdvReac Type Severity Reaction Status Date / Time shellfish derived Allergy Severe Hives Verified 07/31/18 14:36 DUCK SAUCE Allergy Severe Hives Uncoded 07/31/18 14:36 History of Present Illness: 63 years old male with long history of alcohol nicotine and opiate dependent has bipolar ii longest sobriety 17 years relapse 5 years ago truggle to be sober has chronic bronchitis present coughing productive cough with green flame, has asthm and copd smoke a pack cigarette per day unable to stop due to unstable mood has gerd and lower back pain and foot pain Exam Limitations: No Limitations - Ebola screening Have you traveled outside of the country in the last 21 days: No Have you had contact with anyone from an Ebola affected area: No Have you been sick,other than usual withdrawal symptoms: No Do you have a fever: No - Review of Systems Constitutional: Changes in sleep, Weight Stable EENT: reports: Nose Congestion, Throat Pain, Throat Swelling Respiratory: reports: SOB with Exertion, Wheezing, Productive cough Cardiac: reports: No Symptoms Reported GI: reports: Nausea, Poor Fluid Intake, Indigestion, Abdominal cramping : reports: No Symptoms Reported Musculoskeletal: reports: Back Pain, Joint Pain, Joint Swelling, Muscle Pain, Neck Pain Integumentary: reports: No Symptoms Reported Neuro: reports: Tingling Endocrine: reports: No Symptoms Reported Hematology: reports: No Symptoms Reported Psychiatric: reports: Judgement Intact, Orientated x3, Anxious, Depressed Other Systems: Reviewed and Negative Patient History - Patient Medical History Hx Anemia: No Hx Asthma: Yes Hx Chronic Obstructive Pulmonary Disease (COPD): Yes Hx Cancer: No Hx Cardiac Disorders: No Hx Congestive Heart Failure: No Hx Hypertension: No Hx Hypercholesterolemia: No Hx Pacemaker: No HX Cerebrovascular Accident: No Hx Seizures: No Hx Dementia: Yes Hx Diabetes: No Hx Gastrointestinal Disorders: No Hx Liver Disease: No Hx Genitourinary Disorders: No Hx Sexually Transmitted Disorders: No Hx Renal Disease (ESRD): No Hx Thyroid Disease: No Hx Human Immunodeficiency Virus (HIV): No (negative) Hx Hepatitis C: Yes (not treatment needed - viral load negative) Hx Depression: No Hx Suicide Attempt: No Hx Bipolar Disorder: Yes Hx Schizophrenia: No - Patient Surgical History Past Surgical History: Yes Hx Neurologic Surgery: No Hx Cataract Extraction: No Hx Cardiac Surgery: No Hx Lung Surgery: No Hx Breast Surgery: No Hx Breast Biopsy: No Hx Abdominal Surgery: Yes (Incisional hernia repair in 2010.) Hx Appendectomy: No Hx Cholecystectomy: No Hx Genitourinary Surgery: No Hx Orthopedic Surgery: No Other Surgical History: Chest sx in 2010 (Unsure of reason). Anesthesia Reaction: No - PPD History Previous Implant?: Yes Documented Results: Negative w/proof Implanted On Prior [facility] Admission?: Yes Date: 03/27/17 Results: 0 mm PPD to be Administered?: Yes - Smoking Cessation Smoking history: Current every day smoker Have you smoked in the past 12 months: Yes Aproximately how many cigarettes per day: 20 Cigars Per Day: 0 Hx Chewing Tobacco Use: No Initiated information on smoking cessation: Yes 'Breaking Loose' booklet given: 07/31/18 - Substance & Tx. History Hx Alcohol Use: Yes Hx Substance Use: Yes Substance Use Type: Alcohol, Heroin, Opiates Hx Substance Use Treatment: Yes (07/2017) - Substances Abused Alcohol-beer Route: Oral Frequency: Daily Amount used: 2-6 pks. Age of first use: 21 Date of Last Use: 07/30/18 Family Disease History - Family Disease History Family Disease History: [place]: Mother (, ), Other: Father (no contact), Mother, Brother (three living, healthy), Sister (two, living, healthy), Daughter (two, living, healthy) Admission Physical Exam [facility] - Vital Signs Vital Signs: Vital Signs - 24 hr 07/31/18 13:49 Temperature 97.6 F Pulse Rate 69 Respiratory 19 Rate Blood Pressure 139/81 - Physical General Appearance: Yes: Appropriately Dressed, Mild Distress, Tremorous, Irritable, Sweating, Anxious HEENTM: Yes: Normocephalic, Normal Voice, Rhinorrhea, Pharyngeal Erythemia Respiratory: Yes: Chest Non-Tender, No Respiratory Distress, No Accessory Muscle Use, Rhonchi, Wheezing, Expiration, Hyperresonant Neck: Yes: Supple, Trachea in good position Breast: Yes: Breasts Symetrical, No Discharge Cardiology: Yes: Regular Rhythm, Regular Rate, S1, S2 Abdominal: Yes: Non Tender, Flat, Increased Bowel Sounds Genitourinary: Yes: Within Normal Limits Back: Yes: Normal Inspection, Muscle Spasm Musculoskeletal: Yes: full range of Motion, Gait Steady, Back pain, Muscle Pain Extremities: Yes: Normal Capillary Refill, Normal Inspection, Normal Range of Motion, Non-Tender, Tremors Neurological: Yes: Fully Oriented, Alert, Motor Strength 5/5, Normal Response, Depressed Affect Integumentary: Yes: Warm, Clammy Lymphatic: Yes: Adenopathy (right tonsil swell erythema) - Diagnostic (1) Bipolar II disorder Current Visit: Yes Status: Suspected (2) Alcohol dependence with uncomplicated withdrawal Current Visit: Yes Status: Acute (3) Nicotine dependence Current Visit: Yes Status: Acute Qualifiers: Nicotine product type: cigarettes Substance use status: in withdrawal Qualified Code(s): F17.213 - Nicotine dependence, cigarettes, with withdrawal (4) Opioid dependence with withdrawal Current Visit: Yes Status: Acute (5) Asthma Current Visit: Yes Status: Chronic (6) COPD (chronic obstructive pulmonary disease) Current Visit: Yes Status: Chronic Qualifiers: COPD type: emphysema Emphysema type: unilateral Qualified Code(s): J43.0 - Unilateral pulmonary emphysema [MacLeod's syndrome] (7) Sciatic leg pain Current Visit: Yes Status: Chronic (8) Bronchitis Current Visit: Yes Status: Acute Cleared for Admission [facility] - Detox or Rehab [facility] Level of Care: Medically Managed Detox Regimen/Protocol: Methadone/Librium [facility] Breath Alcohol Content Breath Alcohol Content: 0 Urine Drug Screen - Results Drug Screen Negative: No Urine Drug Screen Results: OPI-Opiates, BZO-Benzodiazepines, MTD-Methadone, FEN- Fentanyl
[2018-07-31] MEDS ORDERED: chlordiazePOXIDE HCL 25 MG CAPSULE PO PRN (15:04)
[2018-07-31] MEDS ORDERED: METHADONE HCL 10 MG TABLET (FOR DETOX USE ONLY) PO ONE ×2 (15:30→23:00)
[2018-07-31] MEDS ORDERED: GABAPENTIN 400 MG CAPSULE (FP) PO SCH (15:30)
[2018-07-31] MEDS: chlordiazePOXIDE HCL 25 MG CAPSULE PO SCH ×2 (16:31→22:11)
[2018-07-31] MEDS: PENICILLIN V POTASSIUM 500 MG TABLET PO SCH ×2 (17:05→22:11)
[2018-07-31 18:31] LABS: URINE APPEARANCE CLEAR; URINE BILIRUBIN NEGATIVE (<2.0 mg/dL); URINE COLOR DKYELLOW; URINE GLUCOSE (UA) NEGATIVE (NEGATIVE); URINE KETONE NEGATIVE (NEGATIVE); URINE LEUK ESTERASE NEGATIVE (NEGATIVE); URINE NITRITE NEGATIVE (NEGATIVE); URINE PROTEIN NEGATIVE (NEGATIVE); URINE UROBILINOGEN 4.0 E.U/dl mg/dL (0.2-1.0)
[2018-07-31] MEDS ORDERED: NICOTINE POLACRILEX 2 MG GUM BUC PRN (21:09)
--- NOTE | 2018-07-31 21:11 | PN ---
[facility] Progress Note Note: Vital Signs Temperature 98.5 F 07/31/18 17:05 Pulse Rate 66 07/31/18 17:05 Respiratory Rate 18 07/31/18 17:05 Blood Pressure 124/79 07/31/18 17:05 O2 Sat by Pulse Oximetry (%) Patient requested nicotine replacement therapy, reports craving for cigarettes and wants to leave AMA to smoke. NRT ordered
[2018-07-31] MEDS: NICOTINE 14 MG/24 HOURS TOPICAL PATCH TD SCH (21:34)
[2018-07-31] MEDS: GABAPENTIN 400 MG CAPSULE (FP) PO SCH (22:13)
[2018-07-31] MEDS: BUDESONIDE/FORMETEROL FUMARATE 80/4.5 mcg INHALER IH SCH (22:13)
[2018-07-31] MEDS: DONEPEZIL HCL 5 MG TABLET (FP) PO SCH (22:13)
[2018-07-31] MEDS: MELATONIN 5 MG TABLETS PO SCH (23:05)
[2018-08-01] MEDS: ALBUTEROL SO4 8 GM HFA INHALER IH PRN ×2 (01:04→07:05)
[2018-08-01] MEDS ORDERED: guaiFENesin 200 MG/10 ML 10 ML UNIT-DOSE CUPS PO ONE ×2 (01:10→06:32)
[2018-08-01] MEDS: GABAPENTIN 400 MG CAPSULE (FP) PO SCH ×3 (05:20→22:15)
[2018-08-01] MEDS: PENICILLIN V POTASSIUM 500 MG TABLET PO SCH ×3 (05:20→22:15)
[2018-08-01] MEDS: chlordiazePOXIDE HCL 25 MG CAPSULE PO SCH ×4 (05:20→22:15)
[2018-08-01] MEDS ORDERED: METHADONE HCL 10 MG TABLET (FOR DETOX USE ONLY) PO SCH (10:00)
[2018-08-01 10:01] LABS: HEMATOCRIT 39.2 % (35.4-49); HEMOGLOBIN 12.7 GM/dL (11.7-16.9); MCH 29.8 pg (25.7-33.7); MCHC 32.4 g/dl (32.0-35.9); MEAN CELL VOLUME 91.9 fl (80-96); PLATELET COUNT 366 K/MM3 (134-434); RBC 4.26 M/mm3 (4.00-5.60); RDW 14.4 % (11.9-15.9); WHITE BLOOD COUNT 7.4 K/mm3 (4.0-10.0)
[2018-08-01 10:12] LABS: ALBUMIN 3.4 g/dl (3.4-5.0); ALK PHOS 72 U/L (45-117); ANION GAP 7 MMOL/L (8-16); BILIRUBIN,TOTAL 0.5 mg/dL (0.2-1); BLOOD UREA NITROGEN 12 mg/dL (7-18); CALCIUM 9.1 mg/dL (8.5-10.1); CHLORIDE 106 mmol/L (98-107); CO2 29 mmol/L (21-32); CREATININE 0.9 mg/dL (0.55-1.3); GLUCOSE,RANDOM 127 mg/dL (74-106); POTASSIUM 4.2 mmol/L (3.5-5.1); SGOT/AST 11 U/L (15-37); SGPT/ALT 18 U/L (13-61); SODIUM 142 mmol/L (136-145); TOT PROT 7.2 g/dl (6.4-8.2)
[2018-08-01] MEDS: NICOTINE 14 MG/24 HOURS TOPICAL PATCH TD SCH (10:23)
[2018-08-01] MEDS: BUDESONIDE/FORMETEROL FUMARATE 80/4.5 mcg INHALER IH SCH ×2 (10:23→22:17)
[2018-08-01] MEDS: ASPIRIN 81 MG CHEWABLE TABLETS PO SCH (10:23)
[2018-08-01] MEDS: PANTOPRAZOLE 40 MG TABLET (FP) PO SCH (10:23)
--- NOTE | 2018-08-01 11:00 | PN ---
S CIWA - CIWA Score Nausea/Vomitin Muscle Tremors: 2 Anxiety: 2 Agitation: 0-Normal Activity Paroxysmal Sweats: No Perspiration Orientation: 0-Oriented Tacttile Disturbances: 2-Mild Itch/Numbness/Burn Auditory Disturbances: 0-None Visual Disturbances: 0-None Headache: 1-Very Mild CIWA-Ar Total Score: 9 BHS COWS - Scale Resting Pulse: 0= [place] 80 or Below Sweatin= No chills or Flushing Restless Observation: 0= Sits Still Pupil Size: 2= Moderately Dilated Bone or Joint Aches: 1= Mild Discomfort Runny Nose/ Eye Tearin= None GI Upset > 30mins: 2= Nausea/Diarrhea Tremor Observation of Outstretched Hands: 2= Slight Tremor Visible Yawning Observation: 0= None Anxiety or Irritability: 1=Feels Anxious/Irritable Goose Flesh Skin: 0=Smooth Skin COWS Score: 8 BHS Progress Note (SOAP) Subjective: PATIENT PRESENTS WITH SHAKES, NAUSEA/DIARRHEA, AND MILD HEADACHE. Objective: 08/01/18 10:58 Laboratory Tests 07/31/18 08/01/18 08/01/18 17:00 06:00 06:00 WBC 7.4 RBC 4.26 Hgb 12.7 Hct 39.2 MCV 91.9 MCH 29.8 MCHC 32.4 RDW 14.4 Plt Count 366 MPV 9.0 Sodium 142 Potassium 4.2 Chloride 106 Carbon Dioxide 29 Anion Gap 7 L BUN 12 Creatinine 0.9 Creat Clearance w eGFR > 60 Random Glucose 127 H Calcium 9.1 Total Bilirubin 0.5 AST 11 L ALT 18 Alkaline Phosphatase 72 Total Protein 7.2 Albumin 3.4 Urine Color Dkyellow Urine Appearance Clear Urine pH 5.0 Ur Specific [place] 1.023 Urine Protein Negative Urine Glucose (UA) Negative Urine Ketones Negative Urine Blood Negative Urine Nitrite Negative Urine Bilirubin Negative Urine Urobilinogen 4.0 e.u/dl Ur Leukocyte Esterase Negative Vital Signs Temperature 98.9 F 08/01/18 10:14 Pulse Rate 56 L 08/01/18 10:14 Respiratory Rate 18 08/01/18 10:14 Blood Pressure 128/84 08/01/18 10:14 O2 Sat by Pulse Oximetry (%) PE SKIN WARM AND DRY ALERT AND ORIENTED X 3 CAR S1S2 RESP CTA BL GI SOFT, BS, NT,ND NEURO: +PERRLA, PUPILS MILD DILATION Assessment: 08/01/18 10:59 WITHDRAWAL SYNDROME Plan: CONTINUE DETOX ORDERED CONTINUE TO ENCOURAGE ORAL FLUIDS CONTINUE TO MONITOR
[2018-08-01] MEDS ORDERED: P-EPHED 60MG/TRIPROLIDI 2.5MG TABLET PO PRN (14:18)
[2018-08-01] MEDS: guaiFENesin 200 MG/10 ML 10 ML UNIT-DOSE CUPS PO PRN (14:39)
--- NOTE | 2018-08-01 16:24 | CONSULT ---
[facility] Psychiatric Consult - Data Date of interview: 08/01/18 Admission source: [facility] Identifying data: Patient is a 63 year old single male, father of nine, unemployed, homeless, and is supported by disability benefits. This is one of multiple admissions for patient. Patient admitted to for alcohol and opiate dependence. Substance Abuse History: Smoking Cessation. Smoking history: Current every day smoker. Have you smoked in the past 12 months: Yes. Aproximately how many cigarettes per day: 20. Cigars Per Day: 0. Hx Chewing Tobacco Use: No. Initiated information on smoking cessation: Yes. 'Breaking Loose' booklet given : 07/31/18. - Substance & Tx. History. Hx Alcohol Use: Yes. Hx Substance Use : Yes. Substance Use Type: Alcohol, Heroin, Opiates. Hx Substance Use Treatment: Yes (07/2017). - Substances Abused. Alcohol-beer. Route: Oral. Frequency: Daily. Amount used: 2-6 pks. Age of first use: 21. Date of Last Use: 07/30/18 Medical History: Asthma, Dementia Psychiatric History: Patient denies h/o psychiatric hospitalizations. Outpatient care is currently provided at [facility]. Claims to have a diagnosis of bipolar disorder. He is prescribed cymbalta 20mg + Seroquel 200mg qhs. Pharmacy claims reviwed. Patient reports poor sleep since admission. Patient denies h/o suicide attempt. Physical/Sexual Abuse/Trauma History: denies. Mental Status Exam - Mental Status Exam Alert and Oriented to: Time, Place, Person Cognitive Function: Good Patient Appearance: Well Groomed Mood: Euthymic Affect: Mood Congruent Patient Behavior: Fatigued, Cooperative Speech Pattern: Appropriate Voice Loudness: Normal Thought Process: Intact, Goal Oriented Thought Disorder: Not Present Hallucinations: Denies Suicidal Ideation: Denies Homicidal Ideation: Denies Insight/Judgement: Poor Sleep: Poorly Appetite: Fair Muscle strength/Tone: Normal Gait/Station: Normal Psychiatric Findings - Problem List ([place] 1, 2,3) (1) Alcohol dependence with uncomplicated withdrawal Current Visit: Yes Status: Acute (2) Opioid dependence with withdrawal Current Visit: Yes Status: Acute (3) Nicotine dependence Current Visit: Yes Status: Acute Qualifiers: Nicotine product type: cigarettes Substance use status: in withdrawal Qualified Code(s): F17.213 - Nicotine dependence, cigarettes, with withdrawal (4) Insomnia Current Visit: Yes Status: Acute Qualifiers: Insomnia type: primary Qualified Code(s): F51.01 - Primary insomnia (5) Substance induced mood disorder Current Visit: Yes Status: Acute - Initial Treatment Plan Initial Treatment Plan: Psychoeducation provided. Detoxification in progress. Will order Cymbalta 20mg + Seroquel 100mg (reduced dosaged due to oversedation) . Benefits and side effects discussed. Verbal consent given.
[2018-08-01 17:34] LABS: URINE APPEARANCE CLEAR; URINE COLOR STRAW; URINE GLUCOSE (UA) NEGATIVE (NEGATIVE)
[2018-08-01 17:35] LABS: URINE BILIRUBIN NEGATIVE (<2.0 mg/dL); URINE KETONE NEGATIVE (NEGATIVE); URINE LEUK ESTERASE NEGATIVE (NEGATIVE); URINE NITRITE NEGATIVE (NEGATIVE); URINE PROTEIN NEGATIVE (NEGATIVE); URINE UROBILINOGEN NEGATIVE mg/dL (0.2-1.0)
[2018-08-01] MEDS: QUEtiapine FUMARATE 100 MG TABLET (FP) PO SCH (22:15)
[2018-08-01] MEDS: DONEPEZIL HCL 5 MG TABLET (FP) PO SCH (22:15)
[2018-08-01] MEDS: MELATONIN 5 MG TABLETS PO SCH (22:15)
[2018-08-02] MEDS: GABAPENTIN 400 MG CAPSULE (FP) PO SCH ×3 (05:17→22:22)
[2018-08-02] MEDS: PENICILLIN V POTASSIUM 500 MG TABLET PO SCH ×3 (05:17→22:22)
[2018-08-02] MEDS: chlordiazePOXIDE HCL 25 MG CAPSULE PO SCH ×2 (05:17→10:34)
[2018-08-02] MEDS: METHADONE HCL 5 MG TABLET (FOR DETOX USE ONLY) PO SCH (10:34)
[2018-08-02] MEDS: PANTOPRAZOLE 40 MG TABLET (FP) PO SCH (10:34)
[2018-08-02] MEDS: BUDESONIDE/FORMETEROL FUMARATE 80/4.5 mcg INHALER IH SCH ×2 (10:34→22:23)
[2018-08-02] MEDS: ASPIRIN 81 MG CHEWABLE TABLETS PO SCH (10:35)
[2018-08-02] MEDS: NICOTINE 14 MG/24 HOURS TOPICAL PATCH TD SCH (10:35)
[2018-08-02] MEDS: DULoxetine HCL 20 MG CAPSULE.DR (FP) PO SCH (10:35)
--- NOTE | 2018-08-02 11:37 | PN ---
[facility] CIWA - CIWA Score Nausea/Vomitin-Mild Nausea/No Vomiting Muscle Tremors: 2 Anxiety: 2 Agitation: 2 Paroxysmal Sweats: 2 Orientation: 0-Oriented Tacttile Disturbances: 0-None Auditory Disturbances: 0-None Visual Disturbances: 0-None Headache: 1-Very Mild CIWA-Ar Total Score: 10 BHS COWS - Scale Resting Pulse: 0= [place] 80 or Below Sweatin= Chills/Flushing Restless Observation: 1= Difficult to Sit Still Pupil Size: 0= Normal to Room Light Bone or Joint Aches: 1= Mild Discomfort Runny Nose/ Eye Tearin= Nasal Congestion GI Upset > 30mins: 1= Stomach Cramp Tremor Observation of Outstretched Hands: 2= Slight Tremor Visible Yawning Observation: 1= 1-2x During Session Anxiety or Irritability: 1=Feels Anxious/Irritable Goose Flesh Skin: 0=Smooth Skin COWS Score: 9 BHS Progress Note (SOAP) Subjective: Patient is asleep Objective: 08/02/18 11:33 Last Vital Signs Temp Pulse Resp BP Pulse Ox 97.4 F L 65 18 137/86 08/02/18 10:52 08/02/18 10:52 08/02/18 10:52 08/02/18 10:52 Laboratory Tests 07/31/18 08/01/18 08/01/18 17:00 06:00 06:00 WBC 7.4 RBC 4.26 Hgb 12.7 Hct 39.2 MCV 91.9 MCH 29.8 MCHC 32.4 RDW 14.4 Plt Count 366 MPV 9.0 Sodium 142 Potassium 4.2 Chloride 106 Carbon Dioxide 29 Anion Gap 7 L BUN 12 Creatinine 0.9 Creat Clearance w eGFR > 60 Random Glucose 127 H Calcium 9.1 Total Bilirubin 0.5 AST 11 L ALT 18 Alkaline Phosphatase 72 Total Protein 7.2 Albumin 3.4 Urine Color Dkyellow Urine Appearance Clear Urine pH 5.0 Ur Specific [place] 1.023 Urine Protein Negative Urine Glucose (UA) Negative Urine Ketones Negative Urine Blood Negative Urine Nitrite Negative Urine Bilirubin Negative Urine Urobilinogen 4.0 e.u/dl Ur Leukocyte Esterase Negative RPR Titer 08/01/18 08/01/18 06:00 14:30 WBC RBC Hgb Hct MCV MCH MCHC RDW Plt Count MPV Sodium Potassium Chloride Carbon Dioxide Anion Gap BUN Creatinine Creat Clearance w eGFR Random Glucose Calcium Total Bilirubin AST ALT Alkaline Phosphatase Total Protein Albumin Urine Color Straw Urine Appearance Clear Urine pH 7.0 D Ur Specific [place] 1.003 L Urine Protein Negative Urine Glucose (UA) Negative Urine Ketones Negative Urine Blood Negative Urine Nitrite Negative Urine Bilirubin Negative Urine Urobilinogen Negative Ur Leukocyte Esterase Negative RPR Titer Nonreactive Labs reviewed: serum glucose 127 Assessment: 08/02/18 11:35 Withdrawal sxs Noted with hyperglycemia Plan: Continue detox Hyperglycemia: denies h/o DM, repeat fasting glucose, send HbA1c
[2018-08-02] MEDS: chlordiazePOXIDE 5 MG CAPSULE PO SCH ×2 (16:51→22:23)
[2018-08-02] MEDS: MELATONIN 5 MG TABLETS PO SCH (22:22)
[2018-08-02] MEDS: QUEtiapine FUMARATE 100 MG TABLET (FP) PO SCH (22:22)
[2018-08-02] MEDS: DONEPEZIL HCL 5 MG TABLET (FP) PO SCH (22:23)
[2018-08-03] MEDS: ALBUTEROL SO4 0.083% IH SOL 2.5 MG/3 ML VIAL.NEB. NEB PRN ×2 (02:20→16:16)
[2018-08-03] MEDS: GABAPENTIN 400 MG CAPSULE (FP) PO SCH ×3 (05:42→22:21)
[2018-08-03] MEDS: chlordiazePOXIDE 5 MG CAPSULE PO SCH ×2 (05:42→10:20)
[2018-08-03] MEDS: PENICILLIN V POTASSIUM 500 MG TABLET PO SCH ×3 (05:42→22:20)
[2018-08-03] MEDS: BUDESONIDE/FORMETEROL FUMARATE 80/4.5 mcg INHALER IH SCH ×2 (10:18→22:21)
[2018-08-03] MEDS: ASPIRIN 81 MG CHEWABLE TABLETS PO SCH (10:19)
[2018-08-03] MEDS: PANTOPRAZOLE 40 MG TABLET (FP) PO SCH (10:19)
[2018-08-03] MEDS: DULoxetine HCL 20 MG CAPSULE.DR (FP) PO SCH (10:19)
[2018-08-03] MEDS: NICOTINE 14 MG/24 HOURS TOPICAL PATCH TD SCH (10:19)
[2018-08-03] MEDS: METHADONE HCL 5 MG TABLET (FOR DETOX USE ONLY) PO SCH (10:19)
--- NOTE | 2018-08-03 12:05 | PN ---
[facility] Progress Note Note: Vital Signs Temperature 98.7 F 08/03/18 09:16 Pulse Rate 81 08/03/18 09:16 Respiratory Rate 18 08/03/18 09:16 Blood Pressure 119/76 08/03/18 09:16 O2 Sat by Pulse Oximetry (%) Laboratory Last Values WBC 7.4 K/mm3 (4.0-10.0) 08/01/18 06:00 RBC 4.26 M/mm3 (4.00-5.60) 08/01/18 06:00 Hgb 12.7 GM/dL (11.7-16.9) 08/01/18 06:00 Hct 39.2 % (35.4-49) 08/01/18 06:00 MCV 91.9 fl (80-96) 08/01/18 06:00 MCH 29.8 pg (25.7-33.7) 08/01/18 06:00 MCHC 32.4 g/dl (32.0-35.9) 08/01/18 06:00 RDW 14.4 % (11.9-15.9) 08/01/18 06:00 Plt Count 366 K/MM3 (134-434) 08/01/18 06:00 MPV 9.0 fl (7.5-11.1) 08/01/18 06:00 Sodium 142 mmol/L (136-145) 08/01/18 06:00 Potassium 4.2 mmol/L (3.5-5.1) 08/01/18 06:00 Chloride 106 mmol/L (98-107) 08/01/18 06:00 Carbon Dioxide 29 mmol/L (21-32) 08/01/18 06:00 Anion Gap 7 MMOL/L (8-16) L 08/01/18 06:00 BUN 12 mg/dL (7-18) 08/01/18 06:00 Creatinine 0.9 mg/dL (0.55-1.3) 08/01/18 06:00 Creat Clearance w eGFR > 60 (>60) 08/01/18 06:00 Random Glucose 127 mg/dL (74-106) H 08/01/18 06:00 Fasting Glucose 85 mg/dL (74-106) 08/03/18 08:00 Hemoglobin A1c % 6.1 % (4.2-6.3) 08/03/18 08:00 Calcium 9.1 mg/dL (8.5-10.1) 08/01/18 06:00 Total Bilirubin 0.5 mg/dL (0.2-1) 08/01/18 06:00 AST 11 U/L (15-37) L 08/01/18 06:00 ALT 18 U/L (13-61) 08/01/18 06:00 Alkaline Phosphatase 72 U/L (45-117) 08/01/18 06:00 Total Protein 7.2 g/dl (6.4-8.2) 08/01/18 06:00 Albumin 3.4 g/dl (3.4-5.0) 08/01/18 06:00 Urine Color Straw 08/01/18 14:30 Urine Appearance Clear 08/01/18 14:30 Urine pH 7.0 (5.0-8.0) D 08/01/18 14:30 Ur Specific [place] 1.003 (1.004-1.035) L 08/01/18 14:30 Urine Protein Negative (NEGATIVE) 08/01/18 14:30 Urine Glucose (UA) Negative (NEGATIVE) 08/01/18 14:30 Urine Ketones Negative (NEGATIVE) 08/01/18 14:30 Urine Blood Negative (NEGATIVE) 08/01/18 14:30 Urine Nitrite Negative (NEGATIVE) 08/01/18 14:30 Urine Bilirubin Negative (<2.0 mg/dL) 08/01/18 14:30 Urine Urobilinogen Negative mg/dL (0.2-1.0) 08/01/18 14:30 Ur Leukocyte Esterase Negative (NEGATIVE) 08/01/18 14:30 RPR Titer Nonreactive (NONREACTIVE) 08/01/18 06:00 C/o of bilateral shoulder pain with tightness, interrupted sleep, anxious Aox3, no distress no adventitious breath sounds full ROM, no joint erythema or effusion withdrawal sx A1C = 6.1 Pre-diabetes : ADA diet, daily BGM increase PO fluids flexeril RPN continue detox continue to monitor
[2018-08-03] MEDS: CYCLOBENZAPRINE HCL 5 MG TABLET PO SCH ×2 (13:07→22:20)
[2018-08-03] MEDS: chlordiazePOXIDE HCL 10 MG CAPSULE PO SCH ×2 (17:37→22:20)
[2018-08-03] MEDS: MELATONIN 5 MG TABLETS PO SCH (22:20)
[2018-08-03] MEDS: DONEPEZIL HCL 5 MG TABLET (FP) PO SCH (22:20)
[2018-08-03] MEDS: QUEtiapine FUMARATE 100 MG TABLET (FP) PO SCH (22:20)
[2018-08-03] MEDS: ALBUTEROL SO4 8 GM HFA INHALER IH PRN (22:21)
[2018-08-04] MEDS: CYCLOBENZAPRINE HCL 5 MG TABLET PO SCH ×3 (05:43→22:28)
[2018-08-04] MEDS: chlordiazePOXIDE HCL 10 MG CAPSULE PO SCH ×2 (05:43→10:27)
[2018-08-04] MEDS: PENICILLIN V POTASSIUM 500 MG TABLET PO SCH ×3 (05:43→22:28)
[2018-08-04] MEDS: GABAPENTIN 400 MG CAPSULE (FP) PO SCH ×3 (05:43→22:28)
[2018-08-04] MEDS ORDERED: METHADONE HCL 10 MG TABLET (FOR DETOX USE ONLY) PO SCH (10:00)
[2018-08-04] MEDS: DULoxetine HCL 20 MG CAPSULE.DR (FP) PO SCH (10:24)
[2018-08-04] MEDS: ASPIRIN 81 MG CHEWABLE TABLETS PO SCH (10:24)
[2018-08-04] MEDS: BUDESONIDE/FORMETEROL FUMARATE 80/4.5 mcg INHALER IH SCH ×2 (10:24→22:30)
[2018-08-04] MEDS: PANTOPRAZOLE 40 MG TABLET (FP) PO SCH (10:25)
--- NOTE | 2018-08-04 10:25 | PN ---
[facility] Progress Note (SOAP) Subjective: Shoulder pain, shakes, sweats and interrupted sleep Objective: 08/04/18 10:24 Vital Signs 08/04/18 08/04/18 08/04/18 03:30 06:13 09:23 Temperature 97.8 F 96.8 F L Pulse Rate 68 68 Respiratory 18 18 16 Rate Blood Pressure 101/63 106/66 Laboratory Last Values WBC 7.4 K/mm3 (4.0-10.0) 08/01/18 06:00 RBC 4.26 M/mm3 (4.00-5.60) 08/01/18 06:00 Hgb 12.7 GM/dL (11.7-16.9) 08/01/18 06:00 Hct 39.2 % (35.4-49) 08/01/18 06:00 MCV 91.9 fl (80-96) 08/01/18 06:00 MCH 29.8 pg (25.7-33.7) 08/01/18 06:00 MCHC 32.4 g/dl (32.0-35.9) 08/01/18 06:00 RDW 14.4 % (11.9-15.9) 08/01/18 06:00 Plt Count 366 K/MM3 (134-434) 08/01/18 06:00 MPV 9.0 fl (7.5-11.1) 08/01/18 06:00 Sodium 142 mmol/L (136-145) 08/01/18 06:00 Potassium 4.2 mmol/L (3.5-5.1) 08/01/18 06:00 Chloride 106 mmol/L (98-107) 08/01/18 06:00 Carbon Dioxide 29 mmol/L (21-32) 08/01/18 06:00 Anion Gap 7 MMOL/L (8-16) L 08/01/18 06:00 BUN 12 mg/dL (7-18) 08/01/18 06:00 Creatinine 0.9 mg/dL (0.55-1.3) 08/01/18 06:00 Creat Clearance w eGFR > 60 (>60) 08/01/18 06:00 POC Glucometer 107 UNITS (80-120) 08/04/18 05:42 Random Glucose 127 mg/dL (74-106) H 08/01/18 06:00 Fasting Glucose 85 mg/dL (74-106) 08/03/18 08:00 Hemoglobin A1c % 6.1 % (4.2-6.3) 08/03/18 08:00 Calcium 9.1 mg/dL (8.5-10.1) 08/01/18 06:00 Total Bilirubin 0.5 mg/dL (0.2-1) 08/01/18 06:00 AST 11 U/L (15-37) L 08/01/18 06:00 ALT 18 U/L (13-61) 08/01/18 06:00 Alkaline Phosphatase 72 U/L (45-117) 08/01/18 06:00 Total Protein 7.2 g/dl (6.4-8.2) 08/01/18 06:00 Albumin 3.4 g/dl (3.4-5.0) 08/01/18 06:00 Urine Color Straw 08/01/18 14:30 Urine Appearance Clear 08/01/18 14:30 Urine pH 7.0 (5.0-8.0) D 08/01/18 14:30 Ur Specific [place] 1.003 (1.004-1.035) L 08/01/18 14:30 Urine Protein Negative (NEGATIVE) 08/01/18 14:30 Urine Glucose (UA) Negative (NEGATIVE) 08/01/18 14:30 Urine Ketones Negative (NEGATIVE) 08/01/18 14:30 Urine Blood Negative (NEGATIVE) 08/01/18 14:30 Urine Nitrite Negative (NEGATIVE) 08/01/18 14:30 Urine Bilirubin Negative (<2.0 mg/dL) 08/01/18 14:30 Urine Urobilinogen Negative mg/dL (0.2-1.0) 08/01/18 14:30 Ur Leukocyte Esterase Negative (NEGATIVE) 08/01/18 14:30 RPR Titer Nonreactive (NONREACTIVE) 08/01/18 06:00 Labs noted No acute distress Assessment: 08/04/18 10:24 Withdrawal sx Plan: Continue detox
[2018-08-04] MEDS: NICOTINE 14 MG/24 HOURS TOPICAL PATCH TD SCH (10:26)
[2018-08-04] MEDS: ALBUTEROL SO4 8 GM HFA INHALER IH PRN (17:39)
[2018-08-04] MEDS ORDERED: ALBUTEROL SO4 2.5/IPRATROPIUM 0.5 INH SOL 3 ML VIAL.NEB. NEB PRN (18:00)
[2018-08-04] MEDS: MELATONIN 5 MG TABLETS PO SCH (22:28)
[2018-08-04] MEDS: QUEtiapine FUMARATE 100 MG TABLET (FP) PO SCH (22:28)
[2018-08-04] MEDS: DONEPEZIL HCL 5 MG TABLET (FP) PO SCH (22:28)
[2018-08-04] MEDS: guaiFENesin 200 MG/10 ML 10 ML UNIT-DOSE CUPS PO PRN (22:52)
[2018-08-05] MEDS: GABAPENTIN 400 MG CAPSULE (FP) PO SCH (05:13)
[2018-08-05] MEDS: PENICILLIN V POTASSIUM 500 MG TABLET PO SCH (05:13)
[2018-08-05] MEDS: CYCLOBENZAPRINE HCL 5 MG TABLET PO SCH (05:13)
[2018-08-05] MEDS ORDERED: METHADONE HCL 5 MG TABLET (FOR DETOX USE ONLY) PO SCH (06:00)
[2018-08-05] MEDS: BUDESONIDE/FORMETEROL FUMARATE 80/4.5 mcg INHALER IH SCH (09:35)
[2018-08-05] MEDS: DULoxetine HCL 20 MG CAPSULE.DR (FP) PO SCH (09:36)
[2018-08-05] MEDS: ASPIRIN 81 MG CHEWABLE TABLETS PO SCH (09:36)
[2018-08-05] MEDS: PANTOPRAZOLE 40 MG TABLET (FP) PO SCH (09:36)
[2018-08-05] MEDS: NICOTINE 14 MG/24 HOURS TOPICAL PATCH TD SCH (09:37)
[2018-08-05 09:42] VITALS: BP 106/67; PULSE 54; TEMP 96.9
--- NOTE | 2018-08-05 10:16 | PN ---
[facility] Progress Note (SOAP) Subjective: Denies any complaints Objective: 08/05/18 10:13 A & O x 3 Gait steady No distress noted Vital Signs Temperature 96.9 F L 08/05/18 09:41 Pulse Rate 54 L 08/05/18 09:41 Respiratory Rate 18 08/05/18 09:41 Blood Pressure 106/67 08/05/18 09:41 O2 Sat by Pulse Oximetry (%) Low pulse- pt denies any dizziness, chest discomfort nor other complaints Ambukating steadily on unit Assessment: 08/05/18 10:15 detox safely concluded Plan: for discharge
--- NOTE | 2018-08-05 10:35 | DS ---
[facility] Detox Discharge Summary Admission Date: 07/31/18 Discharge Date: 08/05/18 - History Additional Comments: Pt for discharge home. To do outpatient @ [facility]. Will follow up with his PMD Dr Holliday @ [facility] Prescription penicillin given to complete dose started here, ASA and Abuterol also given to be picked up at [place] pharmacy. Pertinent Past History: Spinal stenosis COPD Hep C Bronchitis Asthma - Physical Exam Results Vital Signs: Vital Signs Temperature 96.9 F L 08/05/18 09:41 Pulse Rate 54 L 08/05/18 09:41 Respiratory Rate 18 08/05/18 09:41 Blood Pressure 106/67 08/05/18 09:41 O2 Sat by Pulse Oximetry (%) Pertinent Admission Physical Exam Findings: withdrawal sx - Treatment Hospital Course: Detox Protocol Followed, Detoxed Safely, Responded well, Discharged Condition Good Patient has Accepted a Rehab Referral to: [facility] patient treatment - Medication Discharge Medications: Ambulatory Orders Diclofenac Sodium [Diclofenac Sodium ER] 100 mg PO DAILY 07/31/18 Donepezil HCl [Aricept -] 5 mg PO HS 07/31/18 Gabapentin [Neurontin -] 800 mg PO Q8H 07/31/18 Pantoprazole Sodium [Protonix] 40 mg PO DAILY 07/31/18 Quetiapine Fumarate [Seroquel -] 200 mg PO HS 07/31/18 Duloxetine HCl [Cymbalta] 20 mg PO DAILY 08/01/18 Albuterol Sulfate Inhaler - [Ventolin HFA Inhaler -] 2 inh IH Q4H PRN #1 inh 06/15 Aspirin [ASA -] 81 mg PO DAILY #30 meq 08/05/18 Penicillin V Potassium [Pen Vee K -] 500 mg PO TID 2 Days #7 tablet 08/05/18 - Diagnosis (1) Alcohol dependence with uncomplicated withdrawal Current Visit: Yes Status: Acute (2) Bronchitis Current Visit: Yes Status: Acute (3) Hyperglycemia Current Visit: Yes Status: Acute (4) Opioid dependence with withdrawal Current Visit: Yes Status: Acute (5) Substance induced mood disorder Current Visit: Yes Status: Chronic (6) Asthma Current Visit: Yes Status: Chronic (7) COPD (chronic obstructive pulmonary disease) Current Visit: Yes Status: Chronic Qualifiers: COPD type: emphysema Emphysema type: unilateral Qualified Code(s): J43.0 - Unilateral pulmonary emphysema [MacLeod's syndrome] (8) Hepatitis C Current Visit: Yes Status: Chronic Qualifiers: Viral hepatitis chronicity: chronic (9) Nicotine dependence Current Visit: Yes Status: Chronic Qualifiers: Nicotine product type: cigarettes Substance use status: uncomplicated Qualified Code(s): F17.210 - Nicotine dependence, cigarettes, uncomplicated (10) Cocaine dependence Current Visit: No Status: Chronic Qualifiers: Substance use status: uncomplicated Qualified Code(s): F14.20 - Cocaine dependence, uncomplicated (11) History of cardiac arrhythmia Current Visit: No Status: Chronic (12) Low back pain Current Visit: No Status: Chronic Qualifiers: Chronicity: chronic Back pain laterality: unspecified Sciatica presence: unspecified whether sciatica present Qualified Code(s): M54.5 - Low back pain ; G89.29 - Other chronic pain (13) Spinal stenosis Current Visit: No Status: Chronic Qualifiers: Spinal region: lumbar - AMA Did Patient Leave Against Medical Advice: No
== END 2018-08-05 08:55 | disposition home or self-care (01) | DRG 773 ==
LOC: YASAS 13:05 → Y3N 15:13
PROC: HZ2ZZZZ Detoxification Services for Substance Abuse Treatment (ICD-10-PCS; principal; 2018-07-31)
DX: F11.23 Opioid dependence with withdrawal (principal); F10.230 Alcohol dependence with withdrawal, uncomplicated; F14.20 Cocaine dependence, uncomplicated; F17.210 Nicotine dependence, cigarettes, uncomplicated; F31.81 Bipolar II disorder; F19.24 Other psychoactive substance dependence with psychoactive substance-induced mood disorder; F51.05 Insomnia due to other mental disorder; I25.10 Atherosclerotic heart disease of native coronary artery without angina pectoris; J43.0 Unilateral pulmonary emphysema [MacLeod's syndrome]; J20.9 Acute bronchitis, unspecified; B18.2 Chronic viral hepatitis C; R73.9 Hyperglycemia, unspecified; M54.5 Low back pain; G89.29 Other chronic pain; M48.061 Spinal stenosis, lumbar region without neurogenic claudication; M25.511 Pain in right shoulder; M25.512 Pain in left shoulder; Z86.79 Personal history of other diseases of the circulatory system
CPT/HCPCS: 36415; 80053; 81003; 82947; 82962; 83036; 85027; 86593; 94640

== ENCOUNTER 2020-12-03 11:58 | Inpatient (IN) | payer OTHER ==
[2020-12-03 17:20] VITALS: BMI 27.1
[2020-12-03] MEDS ORDERED: ACETAMINOPHEN 325 MG TABLET (FP) PO PRN ×2 (19:55)
[2020-12-03] MEDS ORDERED: MAG HYDROX/AL HYDROX/SIMETH 30 ML UNIT-DOSE CUP PO PRN (19:55)
[2020-12-03] MEDS ORDERED: IBUPROFEN 400 MG TABLET (FP) PO PRN (19:55)
[2020-12-03] MEDS ORDERED: guaiFENesin 200 MG/10 ML 10 ML UNIT-DOSE CUPS PO PRN (19:55)
[2020-12-03] MEDS ORDERED: METHOCARBAMOL 500 MG TABLET PO PRN (19:55)
[2020-12-03] MEDS ORDERED: BISMUTH SUBSALICYLATE 524 MG/30 ML UD PO PRN (19:55)
[2020-12-03] MEDS ORDERED: chlordiazePOXIDE HCL 25 MG CAPSULE PO PRN (19:55)
[2020-12-03] MEDS ORDERED: NICOTINE POLACRILEX 2 MG GUM BUC PRN (19:55)
[2020-12-03] MEDS ORDERED: METHADONE HCL 10 MG TABLET (FOR DETOX USE ONLY) PO ONE (19:55)
[2020-12-03] MEDS ORDERED: ONDANSETRON *ODT* 4 MG TABLET SL PRN (19:55)
[2020-12-03] MEDS ORDERED: chlordiazePOXIDE HCL 25 MG CAPSULE PO ONE (19:55)
[2020-12-03] MEDS ORDERED: MAGNESIUM CITRATE 300 ML BOTTLE PO PRN (19:55)
[2020-12-03] MEDS ORDERED: cloNIDine HCL 0.1 MG TABLET PO PRN (19:55)
[2020-12-03] MEDS ORDERED: MAGNESIUM HYDROX 2400MG/30ML ORAL SUSPENSION 30 ML CUP PO PRN (19:55)
[2020-12-03] MEDS ORDERED: MENTHOL/PHENOL 1 EACH UD MM PRN (19:55)
[2020-12-03] MEDS ORDERED: ALBUTEROL SO4 HFA INHALER IH PRN (19:59)
[2020-12-03] MEDS ORDERED: MELATONIN 5 MG TABLETS PO SCH (22:00)
[2020-12-03] MEDS: GABAPENTIN 300 MG CAPSULE PO SCH (22:47)
[2020-12-03] MEDS: THIAMINE HCL 100 MG TABLET (FP) PO SCH (22:47)
[2020-12-03] MEDS: DOCUSATE SODIUM 100 MG CAPSULE (FP) PO SCH (22:47)
[2020-12-03] MEDS: chlordiazePOXIDE HCL 25 MG CAPSULE PO SCH (22:48)
[2020-12-03] MEDS ORDERED: QUEtiapine FUMARATE 50 MG TABLET PO ONE (23:00)
[2020-12-04] MEDS: GABAPENTIN 300 MG CAPSULE PO SCH ×3 (06:13→22:37)
[2020-12-04] MEDS: chlordiazePOXIDE HCL 25 MG CAPSULE PO SCH ×4 (06:13→22:37)
[2020-12-04] MEDS ORDERED: MASKS NR ONE (06:17)
[2020-12-04] MEDS ORDERED: METHADONE HCL 10 MG TABLET (FOR DETOX USE ONLY) ONE (09:29)
[2020-12-04] MEDS ORDERED: METHADONE HCL 5 MG TABLET (FOR DETOX USE ONLY) ONE (09:29)
[2020-12-04] MEDS ORDERED: METHADONE (DETOX) 20 MG, METHADONE (DETOX) 5 MG PO ONE (10:00)
[2020-12-04 10:26] LABS: HEMATOCRIT 37.1 % (35.4-49); HEMOGLOBIN 12.1 GM/dL (11.7-16.9); MCH 30.4 pg (25.7-33.7); MCHC 32.6 g/dl (32.0-35.9); MEAN PLT VOLUME 9.9 fl (7.5-11.1); PLATELET COUNT 274 K/MM3 (134-434); RBC 3.99 M/mm3 (4.00-5.60); RDW 14.5 % (11.9-15.9); WHITE BLOOD COUNT 7.9 K/mm3 (4.0-10.0)
[2020-12-04 10:50] LABS: POTASSIUM 3.9 mmol/L (3.5-5.1)
[2020-12-04 10:54] LABS: ALBUMIN 3.2 g/dl (3.4-5.0); BLOOD UREA NITROGEN 10.6 mg/dL (7-18); CALCIUM 8.4 mg/dL (8.5-10.1)
[2020-12-04 10:59] LABS: BILIRUBIN,TOTAL 0.8 mg/dL (0.2-1); TOT PROT 6.1 g/dl (6.4-8.2)
[2020-12-04] MEDS: PANTOPRAZOLE 40 MG TABLET PO SCH (11:00)
[2020-12-04] MEDS: ASPIRIN 81 MG CHEWABLE TABLETS PO SCH (11:00)
[2020-12-04] MEDS: PRENATAL VITAMINS W/ FOLIC ACID TABLET (FP) PO SCH (11:02)
[2020-12-04] MEDS: NICOTINE 14 MG/24 HOURS TOPICAL PATCH TD SCH (11:03)
[2020-12-04] MEDS: DOCUSATE SODIUM 100 MG CAPSULE (FP) PO SCH (22:37)
[2020-12-04] MEDS: THIAMINE HCL 100 MG TABLET (FP) PO SCH (22:37)
[2020-12-05] MEDS: GABAPENTIN 300 MG CAPSULE PO SCH ×3 (05:50→22:22)
[2020-12-05] MEDS: chlordiazePOXIDE HCL 25 MG CAPSULE PO SCH ×4 (05:50→22:22)
[2020-12-05] MEDS ORDERED: METHADONE HCL 10 MG TABLET (FOR DETOX USE ONLY) PO ONE (10:00)
[2020-12-05] MEDS: PANTOPRAZOLE 40 MG TABLET PO SCH (10:56)
[2020-12-05] MEDS: ASPIRIN 81 MG CHEWABLE TABLETS PO SCH (10:56)
[2020-12-05] MEDS: PRENATAL VITAMINS W/ FOLIC ACID TABLET (FP) PO SCH (10:58)
[2020-12-05] MEDS: NICOTINE 14 MG/24 HOURS TOPICAL PATCH TD SCH (10:58)
[2020-12-05] MEDS ORDERED: cloNIDine HCL 0.1 MG TABLET PO PRN (11:01)
[2020-12-05] MEDS: DOCUSATE SODIUM 100 MG CAPSULE (FP) PO SCH (22:21)
[2020-12-05] MEDS: THIAMINE HCL 100 MG TABLET (FP) PO SCH (22:22)
[2020-12-06] MEDS ORDERED: chlordiazePOXIDE HCL 10 MG CAPSULE PO PRN
[2020-12-06] MEDS: chlordiazePOXIDE HCL 10 MG CAPSULE PO SCH ×4 (05:31→22:11)
[2020-12-06] MEDS: GABAPENTIN 300 MG CAPSULE PO SCH ×3 (05:31→22:11)
[2020-12-06] MEDS ORDERED: METHADONE HCL 5 MG TABLET (FOR DETOX USE ONLY) ONE (08:42)
[2020-12-06] MEDS ORDERED: METHADONE HCL 10 MG TABLET (FOR DETOX USE ONLY) ONE (08:42)
[2020-12-06] MEDS ORDERED: METHADONE (DETOX) 10 MG, METHADONE (DETOX) 5 MG PO ONE (10:00)
[2020-12-06] MEDS: ASPIRIN 81 MG CHEWABLE TABLETS PO SCH (10:08)
[2020-12-06] MEDS: PANTOPRAZOLE 40 MG TABLET PO SCH (10:10)
[2020-12-06] MEDS: PRENATAL VITAMINS W/ FOLIC ACID TABLET (FP) PO SCH (10:10)
[2020-12-06] MEDS: NICOTINE 14 MG/24 HOURS TOPICAL PATCH TD SCH (10:10)
[2020-12-06 15:40] LABS: PH,URINE 7.5 (5.0-8.0); URINE APPEARANCE CLEAR; URINE BILIRUBIN NEGATIVE (NEGATIVE); URINE COLOR YELLOW; URINE GLUCOSE (UA) NEGATIVE (NEGATIVE); URINE KETONE NEGATIVE (NEGATIVE); URINE LEUK ESTERASE NEGATIVE (NEGATIVE); URINE NITRITE NEGATIVE (NEGATIVE); URINE PROTEIN NEGATIVE (NEGATIVE)
[2020-12-06] MEDS: THIAMINE HCL 100 MG TABLET (FP) PO SCH (22:11)
[2020-12-06] MEDS: DOCUSATE SODIUM 100 MG CAPSULE (FP) PO SCH (22:11)
[2020-12-06] MEDS: SUVOREXANT 10 MG TABLET PO PRN (22:12)
[2020-12-07] MEDS: GABAPENTIN 300 MG CAPSULE PO SCH ×3 (05:54→22:19)
[2020-12-07] MEDS: chlordiazePOXIDE HCL 10 MG CAPSULE PO SCH ×2 (05:54→18:42)
[2020-12-07] MEDS ORDERED: METHADONE HCL 10 MG TABLET (FOR DETOX USE ONLY) PO ONE (10:00)
[2020-12-07] MEDS: ASPIRIN 81 MG CHEWABLE TABLETS PO SCH (10:18)
[2020-12-07] MEDS: NICOTINE 14 MG/24 HOURS TOPICAL PATCH TD SCH (10:18)
[2020-12-07] MEDS: PRENATAL VITAMINS W/ FOLIC ACID TABLET (FP) PO SCH (10:18)
[2020-12-07] MEDS: PANTOPRAZOLE 40 MG TABLET PO SCH (10:19)
[2020-12-07] MEDS ORDERED: chlordiazePOXIDE HCL 10 MG CAPSULE PO ONE (14:20)
[2020-12-07] MEDS ORDERED: cloNIDine HCL 0.1 MG TABLET PO ONE (14:20)
[2020-12-07] MEDS: SUVOREXANT 10 MG TABLET PO PRN (22:00)
[2020-12-07] MEDS: DOCUSATE SODIUM 100 MG CAPSULE (FP) PO SCH (22:18)
[2020-12-07] MEDS: THIAMINE HCL 100 MG TABLET (FP) PO SCH (22:19)
[2020-12-08] MEDS ORDERED: chlordiazePOXIDE HCL 10 MG CAPSULE PO ONE (05:00)
[2020-12-08] MEDS: GABAPENTIN 300 MG CAPSULE PO SCH ×2 (05:27→13:08)
[2020-12-08] MEDS ORDERED: METHADONE HCL 5 MG TABLET (FOR DETOX USE ONLY) PO ONE (06:00)
[2020-12-08 09:14] VITALS: TEMP 97.3
[2020-12-08] MEDS: ASPIRIN 81 MG CHEWABLE TABLETS PO SCH (10:08)
[2020-12-08] MEDS: PRENATAL VITAMINS W/ FOLIC ACID TABLET (FP) PO SCH (10:08)
[2020-12-08] MEDS: PANTOPRAZOLE 40 MG TABLET PO SCH (10:08)
[2020-12-08] MEDS: NICOTINE 14 MG/24 HOURS TOPICAL PATCH TD SCH (10:10)
[2020-12-08 13:03] VITALS: BP 112/64; PULSE 60
== END 2020-12-08 13:17 | disposition other institution (70) | DRG 773 ==
LOC: YASAS 11:58 → Y6N 19:47
PROVIDERS: ADMIT Allergy & Immunology; ATTEND Allergy & Immunology
PROC: HZ2ZZZZ Detoxification Services for Substance Abuse Treatment (ICD-10-PCS; principal; 2020-12-03)
DX: F11.23 Opioid dependence with withdrawal (principal); F10.230 Alcohol dependence with withdrawal, uncomplicated; F14.20 Cocaine dependence, uncomplicated; F17.210 Nicotine dependence, cigarettes, uncomplicated; F19.24 Other psychoactive substance dependence with psychoactive substance-induced mood disorder; G47.00 Insomnia, unspecified; I10 Essential (primary) hypertension; J43.0 Unilateral pulmonary emphysema [MacLeod's syndrome]; K21.9 Gastro-esophageal reflux disease without esophagitis; K43.9 Ventral hernia without obstruction or gangrene; M48.061 Spinal stenosis, lumbar region without neurogenic claudication; M54.30 Sciatica, unspecified side; M54.5 Low back pain; G89.29 Other chronic pain; R63.8 Other symptoms and signs concerning food and fluid intake; R94.31 Abnormal electrocardiogram [ECG] [EKG]; R00.1 Bradycardia, unspecified; Z86.79 Personal history of other diseases of the circulatory system; Z56.0 Unemployment, unspecified; Z59.0 Homelessness; Z91.013 Allergy to seafood; Z91.018 Allergy to other foods
CPT/HCPCS: 36415; 80053; 81003; 82962; 85027; 86780; 93005; 93010; C9803; J0735; U0003

== ENCOUNTER 2020-12-08 14:05 | Inpatient (IN) | payer OTHER ==
[2020-12-08] MEDS ORDERED: LOPERAMIDE HCL 2 MG CAPSULE PO PRN (15:31)
[2020-12-08] MEDS ORDERED: MAGNESIUM HYDROX 2400MG/30ML ORAL SUSPENSION 30 ML CUP PO PRN (15:31)
[2020-12-08] MEDS ORDERED: MAGNESIUM CITRATE 300 ML BOTTLE PO PRN (15:31)
[2020-12-08] MEDS ORDERED: NICOTINE POLACRILEX 2 MG GUM BUC PRN (15:31)
[2020-12-08] MEDS ORDERED: P-EPHED 60MG/TRIPROLIDI 2.5MG TABLET PO PRN (15:31)
[2020-12-08] MEDS ORDERED: guaiFENesin 200 MG/10 ML 10 ML UNIT-DOSE CUPS PO PRN (15:31)
[2020-12-08] MEDS ORDERED: ACETAMINOPHEN 325 MG TABLET (FP) PO PRN (15:31)
[2020-12-08] MEDS ORDERED: MENTHOL/PHENOL 1 EACH UD MM PRN (15:31)
[2020-12-08] MEDS: DOCUSATE SODIUM 100 MG CAPSULE (FP) PO SCH (21:09)
[2020-12-08] MEDS: GABAPENTIN 300 MG CAPSULE PO SCH (21:09)
[2020-12-08] MEDS: MELATONIN 5 MG TABLETS PO SCH (21:09)
[2020-12-08] MEDS: THIAMINE HCL 100 MG TABLET (FP) PO SCH (21:09)
[2020-12-08] MEDS: hydrOXYzine PAMOATE 25 MG CAPSULE (FP) PO PRN (21:09)
[2020-12-08] MEDS ORDERED: SUVOREXANT 10 MG TABLET PO PRN (22:00)
[2020-12-08] MEDS: MAG HYDROX/AL HYDROX/SIMETH 30 ML UNIT-DOSE CUP PO PRN (23:59)
[2020-12-09] MEDS: GABAPENTIN 300 MG CAPSULE PO SCH ×3 (06:38→21:17)
[2020-12-09] MEDS: PRENATAL VITAMINS W/ FOLIC ACID TABLET (FP) PO SCH (10:00)
[2020-12-09] MEDS: hydrOXYzine PAMOATE 25 MG CAPSULE (FP) PO PRN (10:01)
[2020-12-09] MEDS: PANTOPRAZOLE 40 MG TABLET PO SCH (10:01)
[2020-12-09] MEDS: ASPIRIN 81 MG CHEWABLE TABLETS PO SCH (10:01)
[2020-12-09] MEDS: NICOTINE 7 MG/24 HOURS TOPICAL PATCH TD SCH (10:01)
[2020-12-09] MEDS ORDERED: ALBUTEROL SO4 HFA INHALER IH PRN (15:07)
[2020-12-09] MEDS: THIAMINE HCL 100 MG TABLET (FP) PO SCH (21:15)
[2020-12-09] MEDS: DOCUSATE SODIUM 100 MG CAPSULE (FP) PO SCH (21:16)
[2020-12-09] MEDS: MELATONIN 5 MG TABLETS PO SCH (21:16)
[2020-12-09] MEDS: MAG HYDROX/AL HYDROX/SIMETH 30 ML UNIT-DOSE CUP PO PRN (21:17)
[2020-12-10] MEDS: GABAPENTIN 300 MG CAPSULE PO SCH ×3 (06:35→21:29)
[2020-12-10] MEDS: PRENATAL VITAMINS W/ FOLIC ACID TABLET (FP) PO SCH (10:06)
[2020-12-10] MEDS: PANTOPRAZOLE 40 MG TABLET PO SCH (10:06)
[2020-12-10] MEDS: NICOTINE 7 MG/24 HOURS TOPICAL PATCH TD SCH (10:06)
[2020-12-10] MEDS: ASPIRIN 81 MG CHEWABLE TABLETS PO SCH (10:06)
[2020-12-10] MEDS: IBUPROFEN 400 MG TABLET (FP) PO PRN (10:07)
[2020-12-10] MEDS: DOCUSATE SODIUM 100 MG CAPSULE (FP) PO SCH (21:29)
[2020-12-10] MEDS: MELATONIN 5 MG TABLETS PO SCH (21:29)
[2020-12-10] MEDS: THIAMINE HCL 100 MG TABLET (FP) PO SCH (21:29)
[2020-12-10] MEDS: SUVOREXANT 10 MG TABLET PO PRN (21:31)
[2020-12-11] MEDS: GABAPENTIN 300 MG CAPSULE PO SCH ×3 (07:05→21:11)
[2020-12-11] MEDS: PRENATAL VITAMINS W/ FOLIC ACID TABLET (FP) PO SCH (09:47)
[2020-12-11] MEDS: ASPIRIN 81 MG CHEWABLE TABLETS PO SCH (09:47)
[2020-12-11] MEDS: PANTOPRAZOLE 40 MG TABLET PO SCH (09:47)
[2020-12-11] MEDS: NICOTINE 7 MG/24 HOURS TOPICAL PATCH TD SCH (09:48)
[2020-12-11] MEDS: IBUPROFEN 400 MG TABLET (FP) PO PRN (20:07)
[2020-12-11] MEDS: DOCUSATE SODIUM 100 MG CAPSULE (FP) PO SCH (21:11)
[2020-12-11] MEDS: MELATONIN 5 MG TABLETS PO SCH (21:11)
[2020-12-11] MEDS: THIAMINE HCL 100 MG TABLET (FP) PO SCH (21:12)
[2020-12-11] MEDS: hydrOXYzine PAMOATE 25 MG CAPSULE (FP) PO PRN (21:12)
[2020-12-11] MEDS: SUVOREXANT 10 MG TABLET PO PRN (21:14)
[2020-12-12] MEDS: GABAPENTIN 300 MG CAPSULE PO SCH ×3 (07:02→21:07)
[2020-12-12] MEDS: NICOTINE 7 MG/24 HOURS TOPICAL PATCH TD SCH (09:18)
[2020-12-12] MEDS: PRENATAL VITAMINS W/ FOLIC ACID TABLET (FP) PO SCH (09:18)
[2020-12-12] MEDS: ASPIRIN 81 MG CHEWABLE TABLETS PO SCH (09:18)
[2020-12-12] MEDS: PANTOPRAZOLE 40 MG TABLET PO SCH (09:20)
[2020-12-12] MEDS: MELATONIN 5 MG TABLETS PO SCH (21:07)
[2020-12-12] MEDS: DOCUSATE SODIUM 100 MG CAPSULE (FP) PO SCH (21:07)
[2020-12-12] MEDS: THIAMINE HCL 100 MG TABLET (FP) PO SCH (21:08)
[2020-12-12] MEDS: hydrOXYzine PAMOATE 25 MG CAPSULE (FP) PO PRN (21:08)
[2020-12-12] MEDS: SUVOREXANT 10 MG TABLET PO PRN (21:09)
[2020-12-13] MEDS: GABAPENTIN 300 MG CAPSULE PO SCH ×2 (07:35→15:00)
[2020-12-13 08:42] VITALS: BP 138/87; PULSE 68; TEMP 97.8
[2020-12-13] MEDS: NICOTINE 7 MG/24 HOURS TOPICAL PATCH TD SCH (10:03)
[2020-12-13] MEDS: ASPIRIN 81 MG CHEWABLE TABLETS PO SCH (10:03)
[2020-12-13] MEDS: PANTOPRAZOLE 40 MG TABLET PO SCH (10:03)
[2020-12-13] MEDS: PRENATAL VITAMINS W/ FOLIC ACID TABLET (FP) PO SCH (10:03)
== END 2020-12-13 17:25 | disposition home or self-care (01) | DRG 772 ==
LOC: YASAS 14:05 → Y5N 14:07
PROVIDERS: ADMIT Allergy & Immunology; ATTEND Allergy & Immunology
PROC: HZ42ZZZ Group Counseling for Substance Abuse Treatment, Cognitive-Behavioral (ICD-10-PCS; principal; 2020-12-08)
DX: F11.20 Opioid dependence, uncomplicated (principal); F10.20 Alcohol dependence, uncomplicated; F14.20 Cocaine dependence, uncomplicated; F17.210 Nicotine dependence, cigarettes, uncomplicated; F19.282 Other psychoactive substance dependence with psychoactive substance-induced sleep disorder; F19.24 Other psychoactive substance dependence with psychoactive substance-induced mood disorder; F39 Unspecified mood [affective] disorder; F32.9 Major depressive disorder, single episode, unspecified; F41.9 Anxiety disorder, unspecified; U07.1 COVID-19; I25.10 Atherosclerotic heart disease of native coronary artery without angina pectoris; I48.91 Unspecified atrial fibrillation; J45.909 Unspecified asthma, uncomplicated; K21.9 Gastro-esophageal reflux disease without esophagitis; M48.061 Spinal stenosis, lumbar region without neurogenic claudication; M54.30 Sciatica, unspecified side; M54.5 Low back pain; G89.29 Other chronic pain; Z87.19 Personal history of other diseases of the digestive system; Z91.013 Allergy to seafood; Z56.0 Unemployment, unspecified; Z59.0 Homelessness; Z98.890 Other specified postprocedural states
CPT/HCPCS: C9803; U0003